=== PATIENT | female | born 1990 | race Caucasian/White ===

== ENCOUNTER 2023-08-02 07:54 | Outpatient (OUT) | payer OTHER, SELFPAY ==
--- NOTE | 2023-08-02 07:57 | US_ITS ---
The [address] [address] Patient Name: MARKO LATHAM MRN: [id number] date: 1990 Sex: F Assigned Patient Location: [place] Current Patient Location: US Accession/Order Number: [id number] Exam Date: 08/02/2023 08:00 Report Date: 08/02/2023 08:47 At the request of: CHI DOUGLASS Procedure: US right upper quadrant EXAMINATION: US right upper quadrant HISTORY: Cholelithiasis K80.80 , right upper quadrant pain COMPARISON: No relevant comparison available. TECHNIQUE: Transabdominal evaluation of the right upper quadrant. FINDINGS: LIVER: Normal size and echotexture. Color Doppler demonstrates patent hepatic veins. PORTAL VEIN: Duplex Doppler demonstrates normal hepatopetal flow pattern with flow velocity averaging 30 cm/s. GALLBLADDER: Contains numerous small stones. Wall thickness is upper limits of normal, 3 mm. Negative sonographic Paez sign. BILIARY: No abnormal dilation or stones. Common bile duct diameter is within normal limits. PANCREASE: No visible mass, abnormal atrophy, or duct dilation. KIDNEY: No hydronephrosis. No visible mass or stones. Size: 10.0 x 6.1 x 4.2 cm US/US right upper quadrant IMPRESSION: 1. Cholelithiasis and borderline gallbladder wall thickening suggesting chronic cholecystitis. No free fluid or positive Paez sign to suggest acute cholecystitis. Electronically authenticated by: ANTIONE HUGHES Date: 08/02/2023 08:47
== END 2023-08-02 07:55 | disposition home or self-care (01) ==
LOC: US 07:54
PROVIDERS: PCP Family Medicine; Visit Provider Family Medicine
DX: K80.80 Other cholelithiasis without obstruction (principal); K80.20 Calculus of gallbladder without cholecystitis without obstruction
CPT/HCPCS: 76705

== ENCOUNTER 2023-08-06 07:24 | Outpatient (OUT) | payer OTHER, SELFPAY ==
--- OUTSIDE RECORDS SUMMARY | 2023-08-06 07:28 | XMS_ITS | CCD ---
Author Name Unknown Address [facility] [address] [place] [address] Organization [facility] Care Team Providers Care Clean Room Assembler Name Role Phone [facility] Admitting Unavailable [facility] Attending Unavailable [facility] Primary Care Unavailable [facility] Consulting Unavailable DO Chely Mccall Attending Provider [phone] MD [facility] Primary Care Provider DO Bharati Whiting Attending Provider DO Chely Mccall Admit Provider [phone] CHELY MCCALL Attending Unavailable CHELY MCCALL Attending Unavailable CHELY MCCALL Attending Unavailable CHELY MCCALL Attending Unavailable CHELY MCCALL Referring Unavailable CHELY MCCALL Attending Unavailable CHELY MCCALL Attending Unavailable CHELY MCCALL Referring Unavailable MD Jonatan Marie Jr Emergency Provider Chely Mccall Admitting Unavailable Chely Mccall Attending Unavailable Chely cMcall Attending Unavailable Chi Clay Primary Care Unavailable Chely Mccall Admitting Unavailable Bharati Whiting Admitting Unavailable Bharati Whiting Attending Unavailable [facility] Primary Care Unavailable Jonatan Marie Jr Attending Unavailable [facility] Primary Care Unavailable Jonatan Marie Jr Admitting Unavailable Medications Current Medications Medication Drug Class(es) Dates Sig (Normalized) Sig (Original) acetaminophen 325 mg / oxyCODONE hydrochloride 5 mg oral tablet (1 source) Opioid Agonist Start: 06-27-2023 take 1 tablet by mouth three times daily Oxycodone-Acetami nophen (Percocet) 5-325 mg tablet Active 1 - 2 TAB PO Three times daily 14 10June 27, 2023 Start: 06-27-2023 take 1 tablet by aminata th three times daily Oxycodone-Acetaminophen (Percocet) 5-325 mg tablet Active 1 - 2 TAB PO Three times daily 14 10June 27, 2023 ibuprofen 600 mg oral tablet (7 sources) Nonsteroidal Anti-inflammatory Drug Start: 06-27-2023 take 600 mg by mouth every eight hours Ibuprofen Active 600 MG PO Q8H June 27, 2023 12:00am Start: 05-10-2023 End: 06-27-2023 take 600 mg by mouth every six hours Ibuprofen Discontinued 600 MG PO Q6H 60 May 10, 2023 12:00am June 27, 2023 3:14am Start: 06-18-2021 End: 05-07-2023 take 600 mg by mouth every six hours Ibuprofen Discontinued 600 MG PO Q6H June 18, 2021 12:00am May 07, 2023 10:41am ondansetron 4 mg disintegrating oral tablet (1 source) Serotonin-3 Receptor Antagonist Start: 06-27-2023 take 4 mg by mouth every eight hours Ondansetron Active 4 MG PO Q8H June 27, 2023 12:00am Completed/Discontinued Medications Medication Drug Class(es) Dates Sig (Normalized) Sig (Original) acetaminophen 500 mg oral tablet (6 sources) Start: 06-18-2021 End: 06-27-2023 take 1000 mg by mouth every six hours Acetaminophen Discontinued 1000 MG PO Q6H 60 May 10, 2023 12:00am June 27, 2023 3:14am docusate sodium 100 mg oral capsule (6 sources) Start: 05-10-2023 End: 06-27-2023 take 100 mg by mouth once daily at bedtime Docusate Sodium Discontinued 100 MG PO Daily at bedtime May 10, 2023 12:00am June 27, 2023 3:14am Start: 06-18-2021 End: 05-07-2023 take 1 capsule by mouth once daily at bedtime Docusate Sodium (Dok) 100 mg Capsule Discontinued 100 MG PO Daily at bedtime June 18, 2021 12:00am May 07, 2023 10:41am labetalol hydrochloride 200 mg oral tablet (7 sources) beta-Adrenergic Sara Start: 05-07-2023 End: 06-27-2023 take 200 mg by mouth twice daily Labetalol Discontinued 200 MG PO Twice daily May 07, 2023 12:00am June 27, 2023 3:14am Start: 06-15-2021 End: 06-18-2021 take 300 mg by mouth twice daily Labetalol Discontinued 300 MG PO Twice daily June 15, 2021 12:00am June 18, 2021 3:49pm Problems Problem Classification Problem Date Documented Date Episodic/Chronic Biliary tract disease (4 sources) Biliary calculus; Translations: [Calculus of gallbladder without cholecystitis without obstruction] Onset: 06-27-2023 06-27-2023 Episodic Nonspecific chest pain (1 source) Chest pain, unspecified; Translations: [Chest pain, unspecified] Onset: 06-27-2023 Episodic Other and delivery including normal (1 source) Encounter for supervision of normal , unspecified, third trimester; Translations: [Encounter for supervision of normal , unspecified, third trimester] Onset: 05-09-2023 Episodic Residual codes; unclassified (2 sources) History of uterine scar from previous surgery; Translations: [Other postprocedural status] 05-11-2023 Episodic Unclassified (1 source) Gestational [-induced] hypertension without significant proteinuria, third trimester; Translations: [Gestational [-induced] hypertension without significant proteinuria, third trimester] Onset: 05-07-2023 Unclassified (1 source) Encounter for screening for Streptococcus B; Translations: [Encounter for screening for Streptococcus B] Onset: 04-17-2023 Results Test Name Value Interpretation Reference Range Facility Activated partial thrombopla stin time (aPTT) in platelet poor plasma by coagulation aOrdered By: Jonatan Marie on 06-27-2023 aPTT Coag (PPP) [Time] 31.6 s 25.1-36.5 [facility] Comment on above: A hematocrit value g reater than 55% may lead to inaccurate results in coagulation testing. Patients having hematocrit values >55% require a special collection tube for coagulation studies. Please contact the laboratory at [phone] for redraw instructions. Alanine aminotransferase [En zymatic activity/volume] in Serum or PlasmaOrdered By: Jonatan Marie on 06-27-2023 ALT [Catalytic activity/Vol] 265 U/L 7-52 [facility] Albumin [Mass/volume] in Ser um or Plasma by Bromocresol green (BCG) dye binding methoOrdered By: Jonatan Marie on 06-27-2023 Albumin BCG dye [Mass/Vol] 4.1 g/dL 3.5-5.7 [facility] Alkaline phosphatase [Enzyma tic activity/volume] in Serum or PlasmaOrdered By: Jonatan Marie on 06-27-2023 ALP [Catalytic activity/Vol] 399 U/L 34-104 [facility] Aspartate aminotransferase [ Enzymatic activity/volume] in Serum or PlasmaOrdered By: Jonatan Marie on 06-27-2023 AST [Catalytic activity/Vol] 155 U/L 13-39 [facility] B-Type Natriuretic Peptideon 06-27-2023 Natriuretic peptide B (Bld) [Mass/Vol] 31.0 pg/mL Normal 5-100 [facility] Comment on above: Result Comment: PERF ORMED BY: [place] [id number] PATHOLOGIST QUIRK SANDER YORDAN DEVINE M.D. Performed By: #### C K, BNP, DDIMER, HS TROP, CBC, PT, PTT #### [address] Basophils Auto (Bld) [#/Vol] Ordered By: Jonatan Marie on 06-27-2023 Basophils (Bld) [#/Vol] 0.0 10*3/uL 0.0-0.2 [facility] Basophils/100 WBC Auto (Bld) Ordered By: Jonatan Marie on 06-27-2023 Basophils/100 WBC (Bld) 0.4 % . [facility] Bilirubin.total [Mass/volume ] in Serum or PlasmaOrdered By: Jonatan Marie on 06-27-2023 Bilirubin [Mass/Vol] 0.7 mg/dL 0.3-1.0 [facility] CT abdomen pelvis w conon CT abdomen pelvis w con [facility] [place] [address] CT Scan Report Signed Patient: Janine Latham MR#: [id number] : 1990 Acct:[id number] Age/Sex: 32 / F ADM Date: 06/27/23 Loc: ER Room: Type: [facility] ER Attending Dr: Copies to: Jonatan Marie Jr, MD Ordering Provider: Jonatan Marie Jr, MD Date of Service: 06/27/23 CT/CT abdomen pelvis w con: epigastric pain, abnl lft's CT ABDOMEN AND PELVIS WITH INTRAVENOUS CONTRAST: CLINICAL HISTORY: Chest pain, nausea this morning. COMPARISON: None TECHNIQUE: Spiral images were obtained through the abdomen and pelvis following the administration of intravenous contrast. This CT exam was performed using one or more following dose reduction techniques: Automated exposure control, adjustment of the mA and/or kV according to patient size, or use of iterative reconstruction technique. FINDINGS: Lung Bases: [Partially visualized left lower lobe atelectasis.] Organs:Cholelithiasis and sludge. Gallbladder appears contracted. No CBD dilatation. Subcentimeter hypodense lesion right lobe the liver, too small for accurate characterization. Mild splenomegaly. Portal vein pancreas and adrenal glands appear unremarkable. No enhancing renal mass or hydronephrosis. Abdominal aorta appears normal in caliber.[ GI: Stomach is grossly unremarkable. Small bowel appears nondilated. Appendix is normal. No acute colonic abnormality.[ Pelvis:[Urinary bladder is grossly unremarkable. No adnexal mass. Uterus is grossly unremarkable.] Peritoneum/Retroperitoneum :No free air, free fluid or lymphadenopathy.[ Abd wall/Bones:Abdominal wall demonstrates no acute findings. Osseous structures demonstrate degenerative change.[ CT/CT abdomen pelvis w con IMPRESSION: 1. No definite acute intra-abdominal process.. 2. Gallbladder is contracted with cholelithiasis. If acute cholecystitis is of clinical concern, further evaluation with HIDA scan is suggested. 3. Partially visualized left lower lobe atelectasis. Developing pneumonia cannot be excluded. 4. Splenomegaly. Impression dictated by: Nitin Malagon Jr., D.O.06/27/2023 8:30 AM Dictation Location: [place] [address] Transcribed By: [facility] 06/27/23 1797 Dictated By: Nitin Malagon Jr, DO 06/27/23 0826 Signed By: 06/27/23 0830 Normal [facility] Calcium [Mass/volume] in Ser um or PlasmaOrdered By: Jonatan Marie on 06-27-2023 Calcium [Mass/Vol] 9.1 mg/dL 8.6-10.3 [facility] Carbon dioxide, total [Moles /volume] in Serum or PlasmaOrdered By: Jonatan Marie on 06-27-2023 CO2 [Moles/Vol] 25.7 mmol/L 21.0-31.0 [facility] Chloride [Moles/volume] in S nasra or PlasmaOrdered By: Jonatan Marie on 06-27-2023 Chloride [Moles/Vol] 106 mmol/L 98-107 [facility] Complete Blood Count Auto Di ffon 06-27-2023 Basophils (Bld) [#/Vol] 0.0 10*3/uL Normal 0.0-0.2 [facility] Comment on above: Result Comment: PERF ORMED BY: [place] [address] PATHOLOGIST QUIRK SANDER YORDAN DEVINE M.D. Performed By: #### C K, BNP, DDIMER, HS TROP, CBC, PT, PTT #### [facility] [address] [place] [address] Basophils/100 WBC (Bld) 0.4 % Normal . [facility] Comment on above: Performed By: #### C K, BNP, DDIMER, HS TROP, CBC, PT, PTT #### [facility] [address] Eosinophils (Bld) [#/Vol] 0.1 10*3/uL Normal 0.0-0.45 [facility] Comment on above: Performed By: #### C K, BNP, DDIMER, HS TROP, CBC, PT, PTT #### [facility] [address] Eosinophils/100 WBC (Bld) 1.1 % Normal . [facility] Comment on above: Performed By: #### C K, BNP, DDIMER, HS TROP, CBC, PT, PTT #### [address] Erythrocyte distribution width (RBC) [Ratio] 14.7 % Normal 11.9-15.3 [facility] Comment on above: Performed By: #### C K, BNP, DDIMER, HS TROP, CBC, PT, PTT #### [address] Hematocrit (Bld) [Volume fraction] 36.0 % Normal 34.0-46.4 [facility] Comment on above: Performed By: #### C K, BNP, DDIMER, HS TROP, CBC, PT, PTT #### [address] Hemoglobin (Bld) [Mass/Vol] 11.9 g/dL Normal 11.8-15.4 [facility] Comment on above: Performed By: #### C K, BNP, DDIMER, HS TROP, CBC, PT, PTT #### [address] Lymphocytes (Bld) [#/Vol] 2.3 10*3/uL Normal 1.00-4.8 [facility] Comment on above: Performed By: #### C K, BNP, DDIMER, HS TROP, CBC, PT, PTT #### [address] Lymphocytes/100 WBC (Bld) 32.4 % Normal . [facility] Comment on above: Performed By: #### C K, BNP, DDIMER, HS TROP, CBC, PT, PTT #### [address] MCH (RBC) [Entitic mass] 28.5 pg Normal 24.7-34.3 [facility] Comment on above: Performed By: #### C K, BNP, DDIMER, HS TROP, CBC, PT, PTT #### [address] MCV (RBC) [Entitic vol] 86.3 fL Normal 80-100 [facility] Comment on above: Performed By: #### C K, BNP, DDIMER, HS TROP, CBC, PT, PTT #### [address] Mean Corpuscular HGB Conc 33.1 g/dL Normal 32.0-35.0 [facility] Comment on above: Performed By: #### C K, BNP, DDIMER, HS TROP, CBC, PT, PTT #### [place] [address] [place] Monocytes (Bld) [#/Vol] 0.5 10*3/uL Normal 0.0-0.8 [facility] Comment on above: Performed By: #### C K, BNP, DDIMER, HS TROP, CBC, PT, PTT #### [address] Monocytes/100 WBC (Bld) 19.49 % Normal 0.00-20.00 [facility] Comment on above: Performed By: #### C K, BNP, DDIMER, HS TROP, CBC, PT, PTT #### [address] Monocytes/100 WBC (Bld) 6.9 % Normal . [facility] Comment on above: Performed By: #### C K, BNP, DDIMER, HS TROP, CBC, PT, PTT #### [address] Neutrophils (Bld) [#/Vol] 4.2 10*3/uL Normal 1.8-7.7 [facility] Comment on above: Performed By: #### C K, BNP, DDIMER, HS TROP, CBC, PT, PTT #### [place] [address] [place] Neutrophils/100 WBC (Bld) 59.2 % Normal . [facility] Comment on above: Performed By: #### C K, BNP, DDIMER, HS TROP, CBC, PT, PTT #### [place] [address] [place] NRBC% 0.1 /100{WBC} Normal 0-0.5 [facility] Comment on above: Performed By: #### C K, BNP, DDIMER, HS TROP, CBC, PT, PTT #### [address] Platelet mean volume (Bld) [Entitic vol] 7.3 fL Normal 6.3-10.7 [facility] Comment on above: Performed By: #### C K, BNP, DDIMER, HS TROP, CBC, PT, PTT #### [address] Platelets (Bld) [#/Vol] 189 10*3/uL Normal 150-450 [facility] Comment on above: Performed By: #### C K, BNP, DDIMER, HS TROP, CBC, PT, PTT #### [address] RBC (Bld) [#/Vol] 4.17 10*6/uL Normal 3.60-5.00 [facility] Comment on above: Performed By: #### C K, BNP, DDIMER, HS TROP, CBC, PT, PTT #### [address] WBC (Bld) [#/Vol] 7.1 10*3/uL Normal 3.8-11.6 [facility] Comment on above: Performed By: #### C K, BNP, DDIMER, HS TROP, CBC, PT, PTT #### [address] Comprehensive Metabolic Pane emre 06-27-2023 Albumin [Mass/Vol] 4.1 g/dL Normal 3.5-5.7 [facility] Comment on above: Performed By: #### C K, BNP, DDIMER, HS TROP, CBC, PT, PTT #### [address] Albumin/Globulin [Mass ratio] 1.8 {ratio} Normal [facility] Comment on above: Performed By: #### C K, BNP, DDIMER, HS TROP, CBC, PT, PTT #### [address] [place] [address] [place] ALP [Catalytic activity/Vol] 399 U/L High 34-104 [facility] Comment on above: Performed By: #### C K, BNP, DDIMER, HS TROP, CBC, PT, PTT #### [address] ALT [Catalytic activity/Vol] 265 U/L High 7-52 [facility] Comment on above: Performed By: #### C K, BNP, DDIMER, HS TROP, CBC, PT, PTT #### [address] Anion gap [Moles/Vol] 9.7 mmol/L Normal 6.0-15.0 [facility] Comment on above: Performed By: #### C K, BNP, DDIMER, HS TROP, CBC, PT, PTT #### [address] AST [Catalytic activity/Vol] 155 U/L High 13-39 [facility] Comment on above: Performed By: #### C K, BNP, DDIMER, HS TROP, CBC, PT, PTT #### [facility] [address] [place] [address] Bilirubin [Mass/Vol] 0.7 mg/dL Normal 0.3-1.0 [facility] Comment on above: Performed By: #### C K, BNP, DDIMER, HS TROP, CBC, PT, PTT #### [address] Calcium [Mass/Vol] 9.1 mg/dL Normal 8.6-10.3 [facility] Comment on above: Performed By: #### C K, BNP, DDIMER, HS TROP, CBC, PT, PTT #### [address] Chloride [Moles/Vol] 106 mmol/L Normal 98-107 [facility] Comment on above: Performed By: #### C K, BNP, DDIMER, HS TROP, CBC, PT, PTT #### [address] [place] [address] [place] CO2 [Moles/Vol] 25.7 mmol/L Normal 21.0-31.0 [facility] Comment on above: Performed By: #### C K, BNP, DDIMER, HS TROP, CBC, PT, PTT #### [facility] [address] Creatinine [Mass/Vol] 0.79 mg/dL Normal 0.60-1.20 [facility] Comment on above: Performed By: #### C K, BNP, DDIMER, HS TROP, CBC, PT, PTT #### [facility] [address] Creatinine Clr Calc Pharmacy 114.[address] [facility] Comment on above: Performed By: #### C K, BNP, DDIMER, HS TROP, CBC, PT, PTT #### [address] GFR/1.73 sq M.predicted MDRD (S/P/Bld) [Vol rate/Area] mL/min/{1.73_m2} [facility] Comment on above: Performed By: #### C K, BNP, DDIMER, HS TROP, CBC, PT, PTT #### [address] Globulin (S) [Mass/Vol] 2.3 g/dL [facility] Comment on above: Performed By: #### C K, BNP, DDIMER, HS TROP, CBC, PT, PTT #### [address] Glucose [Mass/Vol] 97 mg/dL Normal 70-100 [facility] Comment on above: Result Comment: [place] Glucose Reference Range is dependent on time and content of last meal. Glucose of more than 200 mg/dL in a nonstressed, ambulatory subject supports the diagnosis of Diabetes Mellitus. ADA recommended reference range Performed By: #### C K, BNP, DDIMER, HS TROP, CBC, PT, PTT #### [address] Potassium [Moles/Vol] 3.4 mmol/L Low 3.5-5.1 [facility] Comment on above: Performed By: #### C K, BNP, DDIMER, HS TROP, CBC, PT, PTT #### [address] Protein [Mass/Vol] 6.4 g/dL Normal 6.4-8.9 [facility] Comment on above: Performed By: #### C K, BNP, DDIMER, HS TROP, CBC, PT, PTT #### [facility] [address] Sodium [Moles/Vol] 138 mmol/L Normal 136-145 [facility] Comment on above: Performed By: #### C K, BNP, DDIMER, HS TROP, CBC, PT, PTT #### [address] Urea nitrogen [Mass/Vol] 15 mg/dL Normal 7-25 [facility] Comment on above: Performed By: #### C K, BNP, DDIMER, HS TROP, CBC, PT, PTT #### [facility] [address] [place] [address] [place] Creatine Kinaseon 06-27-2023 CK [Catalytic activity/Vol] 41 U/L Normal [facility] Comment on above: Performed By: #### C K, BNP, DDIMER, HS TROP, CBC, PT, PTT #### [facility] [address] [place] [address] [place] Creatine kinase [Enzymatic a ctivity/volume] in Serum or PlasmaOrdered By: Jonatan Marie on 06-27-2023 CK [Catalytic activity/Vol] 41 U/L [facility] Creatinine [Mass/volume] in Serum or PlasmaOrdered By: Jonatan Marie on 06-27-2023 Creatinine [Mass/Vol] 0.79 mg/dL 0.60-1.20 [facility] D-Dimer High Sensitivityon 0 06-27-2023 D-Dimer High Sensitivity < 200 Normal 0-243 [facility] Comment on above: Result Comment: The reference range for D-dimer is <243 ng/mL D-dimer units. D-dimer results must be used in conjunction with a clinical pretest probability (PTP) assessment model for deep vein thrombosis (DVT) and pulmonary embolism (PE). Results <230 ng/mL d-dimer units can be used as a negative predictor in patients with low or moderate probability for DVT/PE. Results above the exclusion threshold of 230 ng/ml D-dimer units for DVT/PE may indicate the need for further diagnostic testing. D-Dimer can be increased in hospitalized patients due to co-morbid conditions. A hematocrit value greater than 55% may lead to inaccurate results in coagulation testing. Patients having hematocrit values >55% require a special collection tube for coagulation studies. Please contact the laboratory at [phone] for redraw instructions. PERFORMED BY: [place] [address] PATHOLOGIST QUIRK SANDER YORDAN DEVINE M.D. Performed By: #### C K, BNP, DDIMER, HS TROP, CBC, PT, PTT #### [place] [id number] [facility] ECG 12 lead ECGon 06-27-2023 ECG 12 lead ECG [facility] [place] [address] [place] [address] Electrocardiograph Report Signed Patient: Janine Latham MR#: [id number] : 1990 Acct:[id number] Age/Sex: 32 / F ADM Date: 06/27/23 Loc: ER Room: Type: [facility] ER Attending Dr: Ordering Provider: Jonatan Marie Jr, MD Date of Service: 06/27/23 ECG/ECG 12 lead ECG: Chest Pain Copies to: Test Reason : Blood Pressure : / mmHG Vent. Rate : 075 BPM Atrial Rate : 075 BPM P-R Int : 192 ms QRS Dur : 088 ms QT Int : 420 ms P-R-T Axes : 048 044 050 degrees QTc Int : 469 ms Normal sinus rhythm with sinus arrhythmia Low voltage QRS Septal infarct , age undetermined Abnormal ECG No previous ECGs available Confirmed by Shawanda Thompson ([id number]) on 06/28/2023 5:25:02 PM Referred By: Electronically Signed By:Shawanda Thompson REVISED DOCUMENT/07/19/2023/kh (corrected prov sig) Transcribed By: [facility] Signed By Shawanda Thompson MD 4 0006 Normal [facility] Eosinophils Auto (Bld) [#/Vo l]Ordered By: Jonatan Marie on 06-27-2023 Eosinophils (Bld) [#/Vol] 0.1 10*3/uL 0.0-0.45 [facility] Eosinophils/100 WBC Auto (Bl d)Ordered By: Jonatan Marie on 06-27-2023 Eosinophils/100 WBC (Bld) 1.1 % . [facility] Erythrocyte distribution wid th Auto (RBC) [Ratio]Ordered By: Jonatan Marie on 06-27-2023 Erythrocyte distribution width (RBC) [Ratio] 14.7 % 11.9-15.3 [facility] Fibrin D-dimer [Presence] in Platelet poor plasma by Latex agglutinationOrdered By: Jonatan Marie on 06-27-2023 Fibrin D-dimer LA Ql (PPP) < 200 ng/mL 0-243 [facility] Comment on above: The reference range for D-dimer is <243 ng/mL D-dimer units.D-dimer results must be used in conjunction with a clinicalpretest probability (PTP) assessment model for deep veinthrombosis (DVT) and pulmonary embolism (PE). Results <230ng/mL d-dimer units can be used as a negative predictor inpatients with low or moderate probability for DVT/PE.Results above the exclusion threshold of 230 ng/ml D-dimerunits for DVT/PE may indicate the need for furtherdiagnostic testing.D-Dimer can be increased in hospitalized patients due toco-morbid conditions.A hematocrit value greater than 55% may lead to inaccurate results in coagulation testing. Patients having hematocrit values >55% require a special collection tube for coagulation studies. Please contact the laboratory at [phone] for redraw instructions. Globulin Calc (S) [Mass/Vol] Ordered By: Jonatan Marie on 06-27-2023 Globulin (S) [Mass/Vol] 2.3 g/dL [facility] Glucose [Mass/volume] in Ser um or PlasmaOrdered By: Jonatan Marie on 06-27-2023 Glucose [Mass/Vol] 97 mg/dL 70-100 [facility] Comment on above: ADA recommended refe rence rangeRandom Glucose Reference Range is dependent on time and content of last meal. Glucose of more than 200 mg/dL in a nonstressed, ambulatory subject supports the diagnosis of Diabetes Mellitus. Hematocrit Auto (Bld) [Volum e fraction]Ordered By: Jonatan Marie on 06-27-2023 Hematocrit (Bld) [Volume fraction] 36.0 % 34.0-46.4 [facility] Hemoglobin [Mass/volume] in BloodOrdered By: Jonatan Marie on 06-27-2023 Hemoglobin (Bld) [Mass/Vol] 11.9 g/dL 11.8-15.4 [facility] INR in Platelet poor plasma by Coagulation assayOrdered By: Jonatan Marie on 06-27-2023 INR Coag (PPP) [Relative time] 0.8 {INR} [facility] Comment on above: INR Therapeutic Rang e A) Pre- and Peroperative OAT started two weeks before surgery. NOT HIP SURGERY: 1.5 - 2.5 HIP SURGERY: 2 - 3B) Primary and secondary prevention of venous THROMBOSIS: 2 - 3C) Active venous thrombosis, pulmonary embolismand prevention of recurrent venous thrombosis: 2 - 3D) Prevention of arterial thromboembolismincluding patients with mechanical heart valves: 3 - 4.5 Leukocytes [#/volume] correc jeff for nucleated erythrocytes in Blood by Automated counOrdered By: Jonatan Marie on 06-27-2023 WBC corrected for nucl RBC Auto (Bld) [#/Vol] 7.1 10*3/uL 3.8-11.6 [facility] Lipaseon 06-27-2023 Lipase [Catalytic activity/Vol] 15.0 U/L Normal 11.0-82.0 [facility] Comment on above: Result Comment: PERF ORMED BY: [place] [address] PATHOLOGIST QUIRK SANDER YORDAN DEVINE M.D. Performed By: #### C K, BNP, DDIMER, HS TROP, CBC, PT, PTT #### [facility] [address] Lipase [Enzymatic activity/v olume] in Serum or PlasmaOrdered By: Jonatan Marie on 06-27-2023 Lipase [Catalytic activity/Vol] 15.0 U/L 11.0-82.0 [facility] Lymphocytes Auto (Bld) [#/Vo l]Ordered By: Jonatan Marie on 06-27-2023 Lymphocytes (Bld) [#/Vol] 2.3 10*3/uL 1.00-4.8 [facility] Lymphocytes/100 WBC Auto (Bl d)Ordered By: Jonatan Marie on 06-27-2023 Lymphocytes/100 WBC (Bld) 32.4 % . [facility] MCH Auto (RBC) [Entitic mass ]Ordered By: Jonatan Marie on 06-27-2023 MCH (RBC) [Entitic mass] 28.5 pg 24.7-34.3 [facility] MCHC Auto (RBC) [Mass/Vol]Or dered By: Jonatan Marie on 06-27-2023 MCHC (RBC) [Mass/Vol] 33.1 g/dL 32.0-35.0 [facility] MCV Auto (RBC) [Entitic vol] Ordered By: Jonatan Marie on 06-27-2023 MCV (RBC) [Entitic vol] 86.3 fL 80-100 [facility] Monocyte distribution width [Entitic volume] in Blood by AutomatedOrdered By: Jonatan Marie on 06-27-2023 Monocyte distribution width Auto (Bld) [Entitic vol] 19.49 % 0.00-20.00 [facility] Monocytes Auto (Bld) [#/Vol] Ordered By: Jonatan Marie on 06-27-2023 Monocytes (Bld) [#/Vol] 0.5 10*3/uL 0.0-0.8 [facility] Monocytes/100 WBC Auto (Bld) Ordered By: Jonatan Marie on 06-27-2023 Monocytes/100 WBC (Bld) 6.9 % . [facility] Natriuretic peptide B [Mass/ Vol]Ordered By: Jonatan Marie on 06-27-2023 Natriuretic peptide B (Bld) [Mass/Vol] 31.0 pg/mL 5-100 [facility] Neutrophils Auto (Bld) [#/Vo l]Ordered By: Jonatan Marie on 06-27-2023 Neutrophils (Bld) [#/Vol] 4.2 10*3/uL 1.8-7.7 [facility] Neutrophils/100 WBC Auto (Bl d)Ordered By: Jonatan Marie on 06-27-2023 Neutrophils/100 WBC (Bld) 59.2 % . [facility] No Panel InformationOrdered By: Jonatan Marie on 06-27-2023 Estimated GFR (CKD-EPI) > 60.0 mL/Min [facility] Creatinine Clearance (Chem 114.10 [facility] Nucleated erythrocytes [Pres ence] in Blood by Automated countOrdered By: Jonatan Marie on 06-27-2023 Nucleated RBC Auto Ql (Bld) 0.1 /100{WBC} 0-0.5 [facility] Partial Thromboplastin Timeo n 06-27-2023 aPTT Coag (Bld) [Time] 31.6 s Normal 25.1-36.5 [facility] Comment on above: Result Comment: A he matocrit value greater than 55% may lead to inaccurate results in coagulation testing. Patients having hematocrit values >55% require a special collection tube for coagulation studies. Please contact the laboratory at [phone] for redraw instructions. Performed By: #### C K, BNP, DDIMER, HS TROP, CBC, PT, PTT #### [facility] [address] Platelet mean volume Auto (B ld) [Entitic vol]Ordered By: Jonatan Marie on 06-27-2023 Platelet mean volume (Bld) [Entitic vol] 7.3 fL 6.3-10.7 [facility] Platelets Auto (Bld) [#/Vol] Ordered By: Jonatan Marie on 06-27-2023 Platelets (Bld) [#/Vol] 189 10*3/uL 150-450 [facility] Potassium [Moles/volume] in Serum or PlasmaOrdered By: Jonatan Marie on 06-27-2023 Potassium [Moles/Vol] 3.4 mmol/L 3.5-5.1 [facility] Protein [Mass/volume] in Ser um or PlasmaOrdered By: Jonatan Marie on 06-27-2023 Protein [Mass/Vol] 6.4 g/dL 6.4-8.9 [facility] Prothrombin Time INRon 06-27 INR Coag (PPP) [Relative time] 0.8 {INR} Normal [facility] Comment on above: Result Comment: INR Therapeutic Range A) Pre- and Peroperative OAT started two weeks before surgery. NOT HIP SURGERY: 1.5 - 2.5 HIP SURGERY: 2 - 3 B) Primary and secondary prevention of venous THROMBOSIS: 2 - 3 C) Active venous thrombosis, pulmonary embolism and prevention of recurrent venous thrombosis: 2 - 3 D) Prevention of arterial thromboembolism including patients with mechanical heart valves: 3 - 4.5 Performed By: #### C K, BNP, DDIMER, HS TROP, CBC, PT, PTT #### [facility] [address] [place] [id number] [facility] PT Coag (PPP) [Time] 9.7 s Normal 9.0-12.9 [facility] Comment on above: Result Comment: A he matocrit value greater than 55% may lead to inaccurate results in coagulation testing. Patients having hematocrit values >55% require a special collection tube for coagulation studies. Please contact the laboratory at [phone] for redraw instructions. Performed By: #### C K, BNP, DDIMER, HS TROP, CBC, PT, PTT #### [facility] [address] [place] [id number] [facility] Prothrombin time (PT)Ordered By: Jonatan Marie on 06-27-2023 PT Coag (PPP) [Time] 9.7 s 9.0-12.9 [facility] Comment on above: A hematocrit value g reater than 55% may lead to inaccurate results in coagulation testing. Patients having hematocrit values >55% require a special collection tube for coagulation studies. Please contact the laboratory at [phone] for redraw instructions. RBC Auto (Bld) [#/Vol]Ordere d By: Jonatan Marie on 06-27-2023 RBC (Bld) [#/Vol] 4.17 10*6/uL 3.60-5.00 [facility] Serum or plasma albumin/glob ulin mass ratioOrdered By: Jonatan Marie on 06-27-2023 Albumin/Globulin [Mass ratio] 1.8 {ratio} [facility] Serum or plasma anion gap de terminationOrdered By: Jonatan Marie on 06-27-2023 Anion gap [Moles/Vol] 9.7 mmol/L 6.0-15.0 [facility] Sodium [Moles/volume] in Ser um or PlasmaOrdered By: Jonatan Marie on 06-27-2023 Sodium [Moles/Vol] 138 mmol/L 136-145 [facility] Troponin I High Sensitivityo n 06-27-2023 Troponin I High Sensitivity 3.6 pg/mL Normal 0.0-15.0 [facility] Comment on above: Result Comment: PERF ORMED BY: [facility] [address] [place] [address] PATHOLOGIST QUIRK SANDER YORDAN DEVINE M.D. Performed By: #### C K, BNP, DDIMER, HS TROP, CBC, PT, PTT #### [facility] [address] Troponin I.cardiac [Mass/vol ume] in Serum or Plasma by Detection limit <= 0.01 ng/Ordered By: Jonatan Marie on 06-27-2023 Troponin I.cardiac DL <= 0.01 ng/mL [Mass/Vol] 3.6 pg/mL 0.0-15.0 [facility] Urea nitrogen [Mass/volume] in Serum or PlasmaOrdered By: Jonatan Marie on 06-27-2023 Urea nitrogen [Mass/Vol] 15 mg/dL 7-25 [facility] WBC Auto (Bld) [#/Vol]Ordere d By: Jonatan Marie on 06-27-2023 WBC (Bld) [#/Vol] 7.1 10*3/uL 3.8-11.6 [facility] XR chest 2V*on 06-27-2023 XR chest 2V* [facility] [address] [place] [address] [place] [address] XRay Report Signed Patient: Janine Latham MR#: [id number] : 1990 Acct:[id number] Age/Sex: 32 / F ADM Date: 06/27/23 Loc: ER Room: Type: [facility] ER Attending Dr: Copies to: Jonatan Marie Jr, MD Ordering Provider: Jonatan Marie Jr, MD Date of Service: 06/27/23 XR/XR chest 2V*: Chest Pain Chest 2 views CLINICAL HISTORY: Chest pain this morning. Recent . COMPARISON: None FINDINGS: Heart normal in size. Lungs are clear. No free air. XR/XR chest 2V* IMPRESSION: NO ACUTE CARDIOPULMONARY ABNORMALITY. Impression dictated by: Nitin Malagon Jr., D.O.06/27/2023 8:14 AM Dictation Location: [facility]--12 Transcribed By: [facility] 06/27/23813 Dictated By: Nitin Malagon Jr, DO 06/27/23812 Signed By: 06/27/23813 Normal [facility] Basophils Auto (Bld) [#/Vol] Ordered By: CHELY MCCALL on 05-10-2023 Basophils (Bld) [#/Vol] 0.1 10*3/uL 0.0-0.2 [facility] Basophils/100 WBC Auto (Bld) Ordered By: CHELY MCCALL on 05-10-2023 Basophils/100 WBC (Bld) 0.7 % . [facility] Complete Blood Count Auto Di ffon 05-10-2023 Basophils (Bld) [#/Vol] 0.1 10*3/uL Normal 0.0-0.2 [facility] Comment on above: Result Comment: PERF ORMED BY: [place] [address] PATHOLOGIST QUIRK SANDER YORDAN DEVINE M.D. Performed By: #### C K, BNP, DDIMER, HS TROP, CBC, PT, PTT #### [facility] [address] Basophils/100 WBC (Bld) 0.7 % Normal . [facility] Comment on above: Performed By: #### C K, BNP, DDIMER, HS TROP, CBC, PT, PTT #### [facility] [address] [place] [address] [place] Eosinophils (Bld) [#/Vol] 0.0 10*3/uL Normal 0.0-0.45 [facility] Comment on above: Performed By: #### C K, BNP, DDIMER, HS TROP, CBC, PT, PTT #### [address] Eosinophils/100 WBC (Bld) 0.0 % Normal . [facility] Comment on above: Performed By: #### C K, BNP, DDIMER, HS TROP, CBC, PT, PTT #### [address] Erythrocyte distribution width (RBC) [Ratio] 14.9 % Normal 11.9-15.3 [facility] Comment on above: Performed By: #### C K, BNP, DDIMER, HS TROP, CBC, PT, PTT #### [address] Hematocrit (Bld) [Volume fraction] 30.6 % Low 34.0-46.4 [facility] Comment on above: Performed By: #### C K, BNP, DDIMER, HS TROP, CBC, PT, PTT #### [address] Hemoglobin (Bld) [Mass/Vol] 10.4 g/dL Low 11.8-15.4 [facility] Comment on above: Performed By: #### C K, BNP, DDIMER, HS TROP, CBC, PT, PTT #### [address] Lymphocytes (Bld) [#/Vol] 1.2 10*3/uL Normal 1.00-4.8 [facility] Comment on above: Performed By: #### C K, BNP, DDIMER, HS TROP, CBC, PT, PTT #### [address] Lymphocytes/100 WBC (Bld) 13.3 % Normal . [facility] Comment on above: Performed By: #### C K, BNP, DDIMER, HS TROP, CBC, PT, PTT #### [address] MCH (RBC) [Entitic mass] 29.9 pg Normal 24.7-34.3 [facility] Comment on above: Performed By: #### C K, BNP, DDIMER, HS TROP, CBC, PT, PTT #### [address] MCV (RBC) [Entitic vol] 88.4 fL Normal 80-100 [facility] Comment on above: Performed By: #### C K, BNP, DDIMER, HS TROP, CBC, PT, PTT #### [address] Mean Corpuscular HGB Conc 33.8 g/dL Normal 32.0-35.0 [facility] Comment on above: Performed By: #### C K, BNP, DDIMER, HS TROP, CBC, PT, PTT #### [address] Monocytes (Bld) [#/Vol] 0.5 10*3/uL Normal 0.0-0.8 [facility] Comment on above: Performed By: #### C K, BNP, DDIMER, HS TROP, CBC, PT, PTT #### [address] Monocytes/100 WBC (Bld) 5.9 % Normal . [facility] Comment on above: Performed By: #### C K, BNP, DDIMER, HS TROP, CBC, PT, PTT #### [address] Neutrophils (Bld) [#/Vol] 7.4 10*3/uL Normal 1.8-7.7 [facility] Comment on above: Performed By: #### C K, BNP, DDIMER, HS TROP, CBC, PT, PTT #### [address] Neutrophils/100 WBC (Bld) 80.1 % Normal . [facility] Comment on above: Performed By: #### C K, BNP, DDIMER, HS TROP, CBC, PT, PTT #### [address] NRBC% 0.1 /100{WBC} Normal 0-0.5 [facility] Comment on above: Performed By: #### C K, BNP, DDIMER, HS TROP, CBC, PT, PTT #### [address] Platelet mean volume (Bld) [Entitic vol] 8.7 fL Normal 6.3-10.7 [facility] Comment on above: Performed By: #### C K, BNP, DDIMER, HS TROP, CBC, PT, PTT #### [facility] [address] Platelets (Bld) [#/Vol] 155 10*3/uL Normal 150-450 [facility] Comment on above: Performed By: #### C K, BNP, DDIMER, HS TROP, CBC, PT, PTT #### [address] RBC (Bld) [#/Vol] 3.46 10*6/uL Low 3.60-5.00 [facility] Comment on above: Performed By: #### C K, BNP, DDIMER, HS TROP, CBC, PT, PTT #### [address] WBC (Bld) [#/Vol] 9.2 10*3/uL Normal 3.8-11.6 [facility] Comment on above: Performed By: #### C K, BNP, DDIMER, HS TROP, CBC, PT, PTT #### [address] Eosinophils Auto (Bld) [#/Vo l]Ordered By: CHELY MCCALL on 05-10-2023 Eosinophils (Bld) [#/Vol] 0.0 10*3/uL 0.0-0.45 [facility] Eosinophils/100 WBC Auto (Bl d)Ordered By: CHELY MCCALL on 05-10-2023 Eosinophils/100 WBC (Bld) 0.0 % . [facility] Erythrocyte distribution wid th Auto (RBC) [Ratio]Ordered By: CHELY MCCALL on 05-10-2023 Erythrocyte distribution width (RBC) [Ratio] 14.9 % 11.9-15.3 [facility] Hematocrit Auto (Bld) [Volum e fraction]Ordered By: CHELY MCCALL on 05-10-2023 Hematocrit (Bld) [Volume fraction] 30.6 % 34.0-46.4 [facility] Hemoglobin [Mass/volume] in BloodOrdered By: CHELY MCCALL on 05-10-2023 Hemoglobin (Bld) [Mass/Vol] 10.4 g/dL 11.8-15.4 [facility] Leukocytes [#/volume] correc jeff for nucleated erythrocytes in Blood by Automated counOrdered By: CHELY MCCALL on 05-10-2023 WBC corrected for nucl RBC Auto (Bld) [#/Vol] 9.2 10*3/uL 3.8-11.6 [facility] Lymphocytes Auto (Bld) [#/Vo l]Ordered By: CHELY MCCALL on 05-10-2023 Lymphocytes (Bld) [#/Vol] 1.2 10*3/uL 1.00-4.8 [facility] Lymphocytes/100 WBC Auto (Bl d)Ordered By: CHELY MCCALL on 05-10-2023 Lymphocytes/100 WBC (Bld) 13.3 % . [facility] MCH Auto (RBC) [Entitic mass ]Ordered By: CHELY MCCALL on 05-10-2023 MCH (RBC) [Entitic mass] 29.9 pg 24.7-34.3 [facility] MCHC Auto (RBC) [Mass/Vol]Or dered By: CHELY MCCALL on 05-10-2023 MCHC (RBC) [Mass/Vol] 33.8 g/dL 32.0-35.0 [facility] MCV Auto (RBC) [Entitic vol] Ordered By: CHELY MCCALL on 05-10-2023 MCV (RBC) [Entitic vol] 88.4 fL 80-100 [facility] Monocytes Auto (Bld) [#/Vol] Ordered By: CHELY MCCALL on 05-10-2023 Monocytes (Bld) [#/Vol] 0.5 10*3/uL 0.0-0.8 [facility] Monocytes/100 WBC Auto (Bld) Ordered By: CHELY MCCALL on 05-10-2023 Monocytes/100 WBC (Bld) 5.9 % . [facility] Neutrophils Auto (Bld) [#/Vo l]Ordered By: CHELY MCCALL on 05-10-2023 Neutrophils (Bld) [#/Vol] 7.4 10*3/uL 1.8-7.7 [facility] Neutrophils/100 WBC Auto (Bl d)Ordered By: CHELY MCCALL on 05-10-2023 Neutrophils/100 WBC (Bld) 80.1 % . [facility] Nucleated erythrocytes [Pres ence] in Blood by Automated countOrdered By: CHELY MCCALL on 05-10-2023 Nucleated RBC Auto Ql (Bld) 0.1 /100{WBC} 0-0.5 [facility] Platelet mean volume Auto (B ld) [Entitic vol]Ordered By: CHELY MCCALL on 05-10-2023 Platelet mean volume (Bld) [Entitic vol] 8.7 fL 6.3-10.7 [facility] Platelets Auto (Bld) [#/Vol] Ordered By: CHELY MCCALL on 05-10-2023 Platelets (Bld) [#/Vol] 155 10*3/uL 150-450 [facility] RBC Auto (Bld) [#/Vol]Ordere d By: CHELY MCCALL on 05-10-2023 RBC (Bld) [#/Vol] 3.46 10*6/uL 3.60-5.00 [facility] WBC Auto (Bld) [#/Vol]Ordere d By: CHELY MCCALL on 05-10-2023 WBC (Bld) [#/Vol] 9.2 10*3/uL 3.8-11.6 [facility] Amphetamine Screen Ql (U)Ord ered By: CHELY MCCALL on 05-09-2023 Amphetamines Ql (U) Negative Negative [facility] Automated erythrocytes count in urine sediment (number/area)Ordered By: CHELY MCCALL on 05-09-2023 RBC Auto (Urine sed) [#/Area] 0-1 [HPF] 0-4 [facility] Automated leukocytes count i n urine sediment (number/area)Ordered By: CHELY MCCALL on 05-09-2023 WBC Auto (Urine sed) [#/Area] 1-2 [HPF] 0-4 [facility] Automated urine color determ inationOrdered By: CHELY MCCALL on 05-09-2023 Color (U) Yellow Normal Yellow [facility] Comment on above: Order Comment: Name Collection Type:: Clean-Voided Midstream Performed By: #### C K, BNP, DDIMER, HS TROP, CBC, PT, PTT #### [facility] [address] Automated urine hyaline cast s count (number/volume)Ordered By: CHELY MCCALL on 05-09-2023 Hyaline casts Auto (U) [#/Vol] None seen [LPF] 0-1 [facility] Barbiturates [Presence] in U rine by Screen methodOrdered By: CHELY MCCALL on 05-09-2023 Barbiturates Screen Ql (U) Negative Negative [facility] Benzodiazepines Screen Ql (U )Ordered By: CHELY MCCALL on 05-09-2023 Benzodiazepines Ql (U) Negative Negative [facility] Benzoylecgonine [Presence] i n Urine by Screen methodOrdered By: CHELY MCCALL on 05-09-2023 Benzoylecgonine Screen Ql (U) Negative Negative [facility] Bilirubin Test strip Ql (U)O rdered By: CHELY MCCALL on 05-09-2023 Bilirubin Ql (U) Negative Negative [facility] Casts typing in urine sedime nt by light microscopyOrdered By: CHELY MCCALL on 05-09-2023 Casts LM Nom (Urine sed) None seen [LPF] None Seen [facility] Complete Blood Count Auto Di ffon 05-09-2023 Basophils (Bld) [#/Vol] 0.2 10*3/uL Normal 0.0-0.2 [facility] Comment on above: Result Comment: PERF ORMED BY: [place] [address] PATHOLOGIST QUIRK SANDER YORDAN DEVINE M.D. Performed By: #### C BC #### [address] Basophils/100 WBC (Bld) 2.3 % Normal . [facility] Comment on above: Performed By: #### C BC #### [address] Eosinophils (Bld) [#/Vol] 0.1 10*3/uL Normal 0.0-0.45 [facility] Comment on above: Performed By: #### C BC #### [address] Eosinophils/100 WBC (Bld) 1.0 % Normal . [facility] Comment on above: Performed By: #### C BC #### [address] Erythrocyte distribution width (RBC) [Ratio] 15.1 % Normal 11.9-15.3 [facility] Comment on above: Performed By: #### C BC #### [address] Hematocrit (Bld) [Volume fraction] 34.1 % Normal 34.0-46.4 [facility] Comment on above: Performed By: #### C BC #### [address] Hemoglobin (Bld) [Mass/Vol] 11.4 g/dL Low 11.8-15.4 [facility] Comment on above: Performed By: #### C BC #### [address] Lymphocytes (Bld) [#/Vol] 1.7 10*3/uL Normal 1.00-4.8 [facility] Comment on above: Performed By: #### C BC #### [place] [address] [place] Lymphocytes/100 WBC (Bld) 24.0 % Normal . [facility] Comment on above: Performed By: #### C BC #### [facility] [address] MCH (RBC) [Entitic mass] 29.2 pg Normal 24.7-34.3 [facility] Comment on above: Performed By: #### C BC #### [facility] [address] MCV (RBC) [Entitic vol] 87.2 fL Normal 80-100 [facility] Comment on above: Performed By: #### C BC #### [address] Mean Corpuscular HGB Conc 33.5 g/dL Normal 32.0-35.0 [facility] Comment on above: Performed By: #### C BC #### [address] Monocytes (Bld) [#/Vol] 0.3 10*3/uL Normal 0.0-0.8 [facility] Comment on above: Performed By: #### C BC #### [address] Monocytes/100 WBC (Bld) 3.9 % Normal . [facility] Comment on above: Performed By: #### C BC #### [address] Neutrophils (Bld) [#/Vol] 4.7 10*3/uL Normal 1.8-7.7 [facility] Comment on above: Performed By: #### C BC #### [address] Neutrophils/100 WBC (Bld) 68.8 % Normal . [facility] Comment on above: Performed By: #### C BC #### [address] NRBC% 0.1 /100{WBC} Normal 0-0.5 [facility] Comment on above: Performed By: #### C BC #### [facility] [address] Platelet mean volume (Bld) [Entitic vol] 9.0 fL Normal 6.3-10.7 [facility] Comment on above: Performed By: #### C BC #### [facility] [address] Platelets (Bld) [#/Vol] 152 10*3/uL Normal 150-450 [facility] Comment on above: Performed By: #### C BC #### [facility] [address] RBC (Bld) [#/Vol] 3.91 10*6/uL Normal 3.60-5.00 [facility] Comment on above: Performed By: #### C BC #### [address] WBC (Bld) [#/Vol] 6.9 10*3/uL Normal 3.8-11.6 [facility] Comment on above: Performed By: #### C BC #### [address] Dipstick and Microscopicon 1 07-10-2022 Appearance (U) Cloudy Critically abnormal Clear [facility] Comment on above: Order Comment: Name Collection Type:: Clean-Voided Midstream Performed By: #### C K, BNP, DDIMER, HS TROP, CBC, PT, PTT #### [place] [address] [place] Bacteria,Urine None Seen Normal None Seen [facility] Comment on above: Order Comment: Name Collection Type:: Clean-Voided Midstream Performed By: #### C K, BNP, DDIMER, HS TROP, CBC, PT, PTT #### [place] [address] [place] Bilirubin,Urine Negative Normal Negative [facility] Comment on above: Order Comment: Name Collection Type:: Clean-Voided Midstream Performed By: #### C K, BNP, DDIMER, HS TROP, CBC, PT, PTT #### [address] [place] [address] [place] Glucose Ql (U) Normal Normal Normal [facility] Comment on above: Order Comment: Name Collection Type:: Clean-Voided Midstream Performed By: #### C K, BNP, DDIMER, HS TROP, CBC, PT, PTT #### [facility] [address] Hyaline Casts,Urine None Seen Normal 0-1 [facility] Comment on above: Order Comment: Name Collection Type:: Clean-Voided Midstream Performed By: #### C K, BNP, DDIMER, HS TROP, CBC, PT, PTT #### [facility] [address] [place] [address] Ketones Ql (U) 3+ High Negative [facility] Comment on above: Order Comment: Name Collection Type:: Clean-Voided Midstream Performed By: #### C K, BNP, DDIMER, HS TROP, CBC, PT, PTT #### [facility] [address] [place] [address] Leukocyte esterase Test strip Ql (U) Negative Normal Negative [facility] Comment on above: Order Comment: Name Collection Type:: Clean-Voided Midstream Performed By: #### C K, BNP, DDIMER, HS TROP, CBC, PT, PTT #### [address] Nitrite,Urine Negative Normal Negative [facility] Comment on above: Order Comment: Name Collection Type:: Clean-Voided Midstream Performed By: #### C K, BNP, DDIMER, HS TROP, CBC, PT, PTT #### [address] Occult Blood,Urine Negative Normal Negative [facility] Comment on above: Order Comment: Name Collection Type:: Clean-Voided Midstream Result Comment: PERF ORMED BY: [place] [address] PATHOLOGIST QUIRK SANDER YORDAN DEVINE M.D. Performed By: #### C K, BNP, DDIMER, HS TROP, CBC, PT, PTT #### [address] Other Casts,Urine None Seen Normal None Seen [facility] Comment on above: Order Comment: Name Collection Type:: Clean-Voided Midstream Result Comment: PERF ORMED BY: [place] [address] PATHOLOGIST QUIRK SANDER YORDAN DEVINE M.D. Performed By: #### C K, BNP, DDIMER, HS TROP, CBC, PT, PTT #### [address] RBC LM.HPF (Urine sed) [#/Area] 0 /[HPF] Normal 0-4 [facility] Comment on above: Order Comment: Name Collection Type:: Clean-Voided Midstream Performed By: #### C K, BNP, DDIMER, HS TROP, CBC, PT, PTT #### [address] Specificy [place],Urine 1.022 Normal 1.001-1.030 [facility] Comment on above: Order Comment: Name Collection Type:: Clean-Voided Midstream Performed By: #### C K, BNP, DDIMER, HS TROP, CBC, PT, PTT #### [address] Squamous Epithelial Cell,Urine 10-19 High 0-2 [facility] Comment on above: Order Comment: Name Collection Type:: Clean-Voided Midstream Performed By: #### C K, BNP, DDIMER, HS TROP, CBC, PT, PTT #### [address] Urobilinogen,Urine Normal Normal Normal [facility] Comment on above: Order Comment: Name Collection Type:: Clean-Voided Midstream Performed By: #### C K, BNP, DDIMER, HS TROP, CBC, PT, PTT #### [address] WBC,Urine 1-2 Normal 0-4 [facility] Comment on above: Order Comment: Name Collection Type:: Clean-Voided Midstream Performed By: #### C K, BNP, DDIMER, HS TROP, CBC, PT, PTT #### [facility] [address] Ketones Auto test strip (U) [Mass/Vol]Ordered By: CHELY MCCALL on 05-09-2023 Ketones (U) [Mass/Vol] 3+ Negative [facility] Emre 05-09-2023 L ------ Specimen: [id number] Received: 05/10/23 Status: MATEO Venegas Num: [id number] Spec Type: Surgical Subm Dr: CHELY MCCALL DO Tissues: A Placenta - 3rd Trimester (Greater than 28 weeks) (PLACENTA AND CORD) Procedures: LAWRENCE/Juani, Darnell/Tomas L5 Age/ Patient Sex Location Account Attending Physician Janine Latham 32/F 3S [id number] CHELY MCCALL DO SPEC NUM: [id number] RECD: 05/10/23 STATUS: MATEO VENEGAS NUM: [id number] KATHY: 05/09/23 [facility] DR: CHELY MCCALL DO ENTERED: 05/10/[address] [facility] [address]: LEATHA TYPE: Surgical DEPT: S ORDERED: HE/3, Gross/Micro L5 ORDERED: HE/3, Gross/Micro L5 Pathological Diagnosis Placenta, With: Umbilical Cord: Three Vessel Cord, Unremarkable. Membranes: Unremarkable. Placenta: Mature Chorionic Villi, Consistent With Third Trimester Placenta. Focal hemorrhagic necrosis is Identified. Clinical Information 38-week IUP, scheduled repeat C/B, PIH, breech presentation, viable female Gross Description Received in formalin labeled with the patient's name, date of and placenta and cord is a is a 21.5 x 16.5 x 2.0 cm placenta with an attached umbilical cord and attached membranes . The hutson-chapman, semitranslucent membranes insert marginally over the disc. The 24.2 x 1.0 cm umbilical cord inserts eccentrically 4.2 cm from the closest disc margin and contains 3 vessels on cut section. The trimmed weight is 556 g. The surface is bluegray with focal, marginal subchorionic hemorrhage adjacent to focal stripping of the membranes from the surface. The area of hemorrhage measures up to 3.5 cm and replaces less than 5% of the surface.. The maternal surface is hutson-chapman and appears intact. The cut surface is spongy, red without discrete lesion. Private Client Advisor sections are submitted in 2 cassettes as follows: A1 - cord and central disc A2 - membranes and marginal disc Specimen: [id number] Received: 05/10/23 Status: MATEO Venegas Num: [id number] Spec Type: Surgical Subm Dr: CHELY MCCALL DO Tissues: A Placenta - 3rd Trimester (Greater than 28 weeks) (PLACENTA AND CORD) Procedures: HE/3, Gross/Micro L5 Patient: Janine Latham [id number] (Continued) Specimen: [id number] Received: 05/10/23 (Continued) Signed (signature on file) Vanessa Vasquez MD 05/14/231955 Specimen: [id number] Received: 05/10/23 Status: MATEO Venegas Num: [id number] Spec Type: Surgical Subm Dr: CHELY MCCALL DO Tissues: A Placenta - 3rd Trimester (Greater than 28 weeks) (PLACENTA AND CORD) Procedures: HE/3, Gross/Micro L5 Patient: Janine Latham Dolores [id number] (Continued) Specimen: [id number] Received: 05/10/23 (Continued) Microscopic Description Two H E slides reviewed. The microscopic examination confirms the diagnosis. CPT Codes 08963 Specimen: [id number] Received: 05/10/23 Status: MATEO Venegas Num: [id number] Spec Type: Surgical Subm Dr: CHELY MCCALL DO Tissues: A Placenta - 3rd Trimester (Greater than 28 weeks) (PLACENTA AND CORD) Procedures: HE/3, Gross/Micro L5 Patient: Janine Latham Dolores [id number] (Continued) Signed (signature on file) Vanessa Vasquez MD 05/14/231955 Normal [facility] Nitrite Test strip Ql (U)Ord ered By: CHELY MCCALL on 05-09-2023 Nitrite Ql (U) Negative Negative [facility] OB Urine Drug Screen (NO THC )on 05-09-2023 Amphetamine Screen,Urine Negative Normal Negative [facility] Comment on above: Performed By: #### R NM W RFX #### [facility] , #### OBUDS #### [facility] [address] [place] [address] [place] Barbiturate Screen,Urine Negative Normal Negative [facility] Comment on above: Performed By: #### R NM W RFX #### [facility] , #### OBUDS #### [facility] [address] [place] [address] [place] Benzodiazepines Screen,Urine Negative Normal Negative [facility] Comment on above: Performed By: #### R NM W RFX #### [facility] , #### OBUDS #### [facility] [address] [place] [address] Cocaine Screen,Urine Negative Normal Negative [facility] Comment on above: Performed By: #### R NM W RFX #### [facility] , #### OBUDS #### [facility] [address] [place] [address] [place] Opiate Screen,Urine Negative Normal Negative [facility] Comment on above: Performed By: #### R NM W RFX #### [facility] , #### OBUDS #### [address] Phencyclidine Screen, Urine Negative Normal Negative [facility] Comment on above: Result Comment: Thes e are unconfirmed results and should not be used for legal purposes. Drug Cut-Off Concentration: AMPH 1000 ng/mL TOMMY 200 ng/mL BROOKLYNN 200 ng/mL COCM 300 ng/mL OP 300 ng/mL PCP 25 ng/mL PERFORMED BY: [place] [address] PATHOLOGIST QUIRK SANDER YORDAN DEVINE M.D. Performed By: #### R NM W RFX #### [facility] , #### OBUDS #### [facility] [address] [place] [address] Opiates [Presence] in Urine by Screen methodOrdered By: CHELY MCCALL on 05-09-2023 Opiates Screen Ql (U) Negative Negative [facility] Phencyclidine Screen Ql (U)O rdered By: CHELY MCCALL on 05-09-2023 Phencyclidine Ql (U) Negative Negative [facility] Comment on above: These are unconfirme d results and should not be used for legal purposes. Drug Cut-Off Concentration: AMPH 1000 ng/mL TOMMY 200 ng/mL BROOKLYNN 200 ng/mL COCM 300 ng/mL OP 300 ng/mL PCP 25 ng/mL RPR w/rfx to Quant TP Abson 12-13-2023 RPR, Rfx Quant RPR Non-Reactive Normal Non Reactive [facility] Comment on above: Result Comment: Perf ormed at: CB - [facility] [address] [id number] Green Building Engineer: Simón Silver PhD, Phone: [phone] PERFORMED BY: [place] [address] PATHOLOGIST QUIRK SANDER YORDAN DEVINE M.D. Performed By: #### C K, BNP, DDIMER, HS TROP, CBC, PT, PTT #### [facility] [address] [place] [address] Reagin Ab [Presence] in Seru m by RPROrdered By: CHELY MCCALL on 05-09-2023 Reagin Ab RPR Ql (S) Non-Reactive Non Reactive [facility] Comment on above: Performed at: CB - [facility] [address] [id number] Director: Simón Silver PhD, Phone: [phone] Specific gravity Auto test s trip (U) [Rel density]Ordered By: CHELY MCCALL on 05-09-2023 Specific gravity (U) [Rel density] 1.022 1.001-1.030 [facility] Squamous epithelial cells de tection in urine sediment by light microscopyOrdered By: CHELY MCCALL on 05-09-2023 Epithelial cells.squamous LM Ql (Urine sed) 10-19 [HPF] 0-2 [facility] Urine bacteria detection by automated methodOrdered By: CHELY MCCALL on 05-09-2023 Bacteria Auto Ql (U) None seen None Seen [facility] Urine clarity by refractomet ry automatedOrdered By: CHELY MCCALL on 05-09-2023 Clarity Refractometry automated (U) Cloudy Clear [facility] Urine glucose measurement by automated test strip (mass/volume)Ordered By: CHELY MCCALL on 05-09-2023 Glucose Auto test strip (U) [Mass/Vol] Normal mg/dL Normal [facility] Urine hemoglobin detection b y automated test stripOrdered By: CHELY MCCALL on 05-09-2023 Hemoglobin Auto test strip Ql (U) Negative Negative [facility] Urine leukocyte esterase det ection by automated test stripOrdered By: CHELY MCCALL on 05-09-2023 Leukocyte esterase Auto test strip Ql (U) Negative Negative [facility] Urine pH measurement by auto mated test stripOrdered By: CHELY MCCALL on 05-09-2023 pH (U) 6.5 [pH] Normal 5.0-9.0 [facility] Comment on above: Order Comment: Name Collection Type:: Clean-Voided Midstream Performed By: #### C K, BNP, DDIMER, HS TROP, CBC, PT, PTT #### [facility] [address] Urine protein measurement by automated test strip (mass/volume)Ordered By: CHELY MCCALL on 05-09-2023 Protein (U) [Mass/Vol] 100 mg/dL High Negative [facility] Comment on above: Order Comment: Name Collection Type:: Clean-Voided Midstream Performed By: #### C K, BNP, DDIMER, HS TROP, CBC, PT, PTT #### [facility] [address] Urobilinogen Auto test strip (U) [Mass/Vol]Ordered By: CHELY MCCALL on 05-09-2023 Urobilinogen (U) [Mass/Vol] Normal mg/dL Normal [facility] Alanine aminotransferase [En zymatic activity/volume] in Serum or PlasmaOrdered By: Bharati Whiting on 05-07-2023 ALT [Catalytic activity/Vol] 9 U/L 7-52 [facility] Albumin [Mass/volume] in Ser um or Plasma by Bromocresol green (BCG) dye binding methoOrdered By: Bharati Whiting on 05-07-2023 Albumin BCG dye [Mass/Vol] 3.4 g/dL 3.5-5.7 [facility] Alkaline phosphatase [Enzyma tic activity/volume] in Serum or PlasmaOrdered By: Bharati Whiting on 05-07-2023 ALP [Catalytic activity/Vol] 184 U/L 34-104 [facility] Amphetamine Screen Ql (U)Ord ered By: Bharati Whiting on 05-07-2023 Amphetamines Ql (U) Negative Negative [facility] Aspartate aminotransferase [ Enzymatic activity/volume] in Serum or PlasmaOrdered By: Bharati Whiting on 05-07-2023 AST [Catalytic activity/Vol] 14 U/L 13-39 [facility] Automated erythrocytes count in urine sediment (number/area)Ordered By: Bharati Whiting on 05-07-2023 RBC Auto (Urine sed) [#/Area] 0-1 [HPF] 0-4 [facility] Automated leukocytes count i n urine sediment (number/area)Ordered By: Bharati Whiting on 05-07-2023 WBC Auto (Urine sed) [#/Area] 0-1 [HPF] 0-4 [facility] Barbiturates [Presence] in U rine by Screen methodOrdered By: Bharati Whiting on 05-07-2023 Barbiturates Screen Ql (U) Negative Negative [facility] Basophils Auto (Bld) [#/Vol] Ordered By: Bharati Whiting on 05-07-2023 Basophils (Bld) [#/Vol] 0.1 10*3/uL 0.0-0.2 [facility] Basophils/100 WBC Auto (Bld) Ordered By: Bharati Whiting on 05-07-2023 Basophils/100 WBC (Bld) 0.7 % . [facility] Benzodiazepines Screen Ql (U )Ordered By: Bharati Whiting on 05-07-2023 Benzodiazepines Ql (U) Negative Negative [facility] Benzoylecgonine [Presence] i n Urine by Screen methodOrdered By: Bharati Whiting on 05-07-2023 Benzoylecgonine Screen Ql (U) Negative Negative [facility] Bilirubin Test strip Ql (U)O rdered By: Bharati Whiting on 05-07-2023 Bilirubin Ql (U) Negative Negative [facility] Bilirubin.total [Mass/volume ] in Serum or PlasmaOrdered By: Bharati Whiting on 05-07-2023 Bilirubin [Mass/Vol] 0.4 mg/dL 0.3-1.0 [facility] Calcium [Mass/volume] in Ser um or PlasmaOrdered By: Bharati Whiting on 05-07-2023 Calcium [Mass/Vol] 9.0 mg/dL 8.6-10.3 [facility] Carbon dioxide, total [Moles /volume] in Serum or PlasmaOrdered By: Bharati Whiting on 05-07-2023 CO2 [Moles/Vol] 20.6 mmol/L 21.0-31.0 [facility] Chloride [Moles/volume] in S nasra or PlasmaOrdered By: Bharati Whiting on 05-07-2023 Chloride [Moles/Vol] 107 mmol/L 98-107 [facility] Color Auto (U)Ordered By: Urbano alexnishant Whiting on 05-07-2023 Color (U) Yellow Yellow [facility] Complete Blood Count Auto Di ffon 05-07-2023 Basophils (Bld) [#/Vol] 0.1 10*3/uL Normal 0.0-0.2 [facility] Comment on above: Result Comment: PERF ORMED BY: [place] [address] PATHOLOGIST QUIRK SANDER YORDAN DEVINE M.D. Performed By: #### C K, BNP, DDIMER, HS TROP, CBC, PT, PTT #### [facility] [address] Basophils/100 WBC (Bld) 0.7 % Normal . [facility] Comment on above: Performed By: #### C K, BNP, DDIMER, HS TROP, CBC, PT, PTT #### [facility] [address] [place] [address] [place] Eosinophils (Bld) [#/Vol] 0.0 10*3/uL Normal 0.0-0.45 [facility] Comment on above: Performed By: #### C K, BNP, DDIMER, HS TROP, CBC, PT, PTT #### [facility] [address] [place] [address] [place] Eosinophils/100 WBC (Bld) 0.3 % Normal . [facility] Comment on above: Performed By: #### C K, BNP, DDIMER, HS TROP, CBC, PT, PTT #### [address] Erythrocyte distribution width (RBC) [Ratio] 14.7 % Normal 11.9-15.3 [facility] Comment on above: Performed By: #### C K, BNP, DDIMER, HS TROP, CBC, PT, PTT #### [address] Hematocrit (Bld) [Volume fraction] 34.8 % Normal 34.0-46.4 [facility] Comment on above: Performed By: #### C K, BNP, DDIMER, HS TROP, CBC, PT, PTT #### [address] Hemoglobin (Bld) [Mass/Vol] 11.8 g/dL Normal 11.8-15.4 [facility] Comment on above: Performed By: #### C K, BNP, DDIMER, HS TROP, CBC, PT, PTT #### [address] Lymphocytes (Bld) [#/Vol] 1.7 10*3/uL Normal 1.00-4.8 [facility] Comment on above: Performed By: #### C K, BNP, DDIMER, HS TROP, CBC, PT, PTT #### [address] Lymphocytes/100 WBC (Bld) 22.7 % Normal . [facility] Comment on above: Performed By: #### C K, BNP, DDIMER, HS TROP, CBC, PT, PTT #### [address] MCH (RBC) [Entitic mass] 29.3 pg Normal 24.7-34.3 [facility] Comment on above: Performed By: #### C K, BNP, DDIMER, HS TROP, CBC, PT, PTT #### [address] MCV (RBC) [Entitic vol] 86.4 fL Normal 80-100 [facility] Comment on above: Performed By: #### C K, BNP, DDIMER, HS TROP, CBC, PT, PTT #### [address] Mean Corpuscular HGB Conc 33.9 g/dL Normal 32.0-35.0 [facility] Comment on above: Performed By: #### C K, BNP, DDIMER, HS TROP, CBC, PT, PTT #### [address] Monocytes (Bld) [#/Vol] 0.2 10*3/uL Normal 0.0-0.8 [facility] Comment on above: Performed By: #### C K, BNP, DDIMER, HS TROP, CBC, PT, PTT #### [address] Monocytes/100 WBC (Bld) 3.2 % Normal . [facility] Comment on above: Performed By: #### C K, BNP, DDIMER, HS TROP, CBC, PT, PTT #### [address] Neutrophils (Bld) [#/Vol] 5.6 10*3/uL Normal 1.8-7.7 [facility] Comment on above: Performed By: #### C K, BNP, DDIMER, HS TROP, CBC, PT, PTT #### [address] Neutrophils/100 WBC (Bld) 73.1 % Normal . [facility] Comment on above: Performed By: #### C K, BNP, DDIMER, HS TROP, CBC, PT, PTT #### [address] NRBC% 0.1 /100{WBC} Normal 0-0.5 [facility] Comment on above: Performed By: #### C K, BNP, DDIMER, HS TROP, CBC, PT, PTT #### [place] [address] [place] Platelet mean volume (Bld) [Entitic vol] 9.2 fL Normal 6.3-10.7 [facility] Comment on above: Performed By: #### C K, BNP, DDIMER, HS TROP, CBC, PT, PTT #### [facility] [address] Platelets (Bld) [#/Vol] 160 10*3/uL Normal 150-450 [facility] Comment on above: Performed By: #### C K, BNP, DDIMER, HS TROP, CBC, PT, PTT #### [facility] [address] RBC (Bld) [#/Vol] 4.03 10*6/uL Normal 3.60-5.00 [facility] Comment on above: Performed By: #### C K, BNP, DDIMER, HS TROP, CBC, PT, PTT #### [address] WBC (Bld) [#/Vol] 7.6 10*3/uL Normal 3.8-11.6 [facility] Comment on above: Performed By: #### C K, BNP, DDIMER, HS TROP, CBC, PT, PTT #### [facility] [address] Comprehensive Metabolic Pane emre 05-07-2023 Albumin [Mass/Vol] 3.4 g/dL Low 3.5-5.7 [facility] Comment on above: Performed By: #### C K, BNP, DDIMER, HS TROP, CBC, PT, PTT #### [facility] [address] Albumin/Globulin [Mass ratio] 1.0 {ratio} Normal [facility] Comment on above: Performed By: #### C K, BNP, DDIMER, HS TROP, CBC, PT, PTT #### [facility] [address] ALP [Catalytic activity/Vol] 184 U/L High 34-104 [facility] Comment on above: Performed By: #### C K, BNP, DDIMER, HS TROP, CBC, PT, PTT #### [facility] [address] ALT [Catalytic activity/Vol] 9 U/L Normal 7-52 [facility] Comment on above: Performed By: #### C K, BNP, DDIMER, HS TROP, CBC, PT, PTT #### [facility] [address] Anion gap [Moles/Vol] 13.1 mmol/L Normal 6.0-15.0 [facility] Comment on above: Performed By: #### C K, BNP, DDIMER, HS TROP, CBC, PT, PTT #### [address] AST [Catalytic activity/Vol] 14 U/L Normal 13-39 [facility] Comment on above: Performed By: #### C K, BNP, DDIMER, HS TROP, CBC, PT, PTT #### [address] Bilirubin [Mass/Vol] 0.4 mg/dL Normal 0.3-1.0 [facility] Comment on above: Performed By: #### C K, BNP, DDIMER, HS TROP, CBC, PT, PTT #### [address] Calcium [Mass/Vol] 9.0 mg/dL Normal 8.6-10.3 [facility] Comment on above: Performed By: #### C K, BNP, DDIMER, HS TROP, CBC, PT, PTT #### [address] Chloride [Moles/Vol] 107 mmol/L Normal 98-107 [facility] Comment on above: Performed By: #### C K, BNP, DDIMER, HS TROP, CBC, PT, PTT #### [address] CO2 [Moles/Vol] 20.6 mmol/L Low 21.0-31.0 [facility] Comment on above: Performed By: #### C K, BNP, DDIMER, HS TROP, CBC, PT, PTT #### [facility] [address] Creatinine [Mass/Vol] 0.51 mg/dL Low 0.60-1.20 [facility] Comment on above: Performed By: #### C K, BNP, DDIMER, HS TROP, CBC, PT, PTT #### [facility] [address] Creatinine Clr Calc Pharmacy 187.43 [facility] Comment on above: Performed By: #### C K, BNP, DDIMER, HS TROP, CBC, PT, PTT #### [address] GFR/1.73 sq M.predicted MDRD (S/P/Bld) [Vol rate/Area] mL/min/{1.73_m2} [facility] Comment on above: Performed By: #### C K, BNP, DDIMER, HS TROP, CBC, PT, PTT #### [address] Globulin (S) [Mass/Vol] 3.3 g/dL [facility] Comment on above: Performed By: #### C K, BNP, DDIMER, HS TROP, CBC, PT, PTT #### [address] Glucose [Mass/Vol] 77 mg/dL Normal 70-100 [facility] Comment on above: Result Comment: [place] Glucose Reference Range is dependent on time and content of last meal. Glucose of more than 200 mg/dL in a nonstressed, ambulatory subject supports the diagnosis of Diabetes Mellitus. ADA recommended reference range Performed By: #### C K, BNP, DDIMER, HS TROP, CBC, PT, PTT #### [address] Potassium [Moles/Vol] 3.7 mmol/L Normal 3.5-5.1 [facility] Comment on above: Performed By: #### C K, BNP, DDIMER, HS TROP, CBC, PT, PTT #### [address] Protein [Mass/Vol] 6.7 g/dL Normal 6.4-8.9 [facility] Comment on above: Performed By: #### C K, BNP, DDIMER, HS TROP, CBC, PT, PTT #### [address] Sodium [Moles/Vol] 137 mmol/L Normal 136-145 [facility] Comment on above: Performed By: #### C K, BNP, DDIMER, HS TROP, CBC, PT, PTT #### [address] Urea nitrogen [Mass/Vol] 7 mg/dL Normal 7-25 [facility] Comment on above: Performed By: #### C K, BNP, DDIMER, HS TROP, CBC, PT, PTT #### [address] Creatinine [Mass/volume] in Serum or PlasmaOrdered By: Bharati Whiting on 05-07-2023 Creatinine [Mass/Vol] 0.51 mg/dL 0.60-1.20 [facility] Dipstick and Microscopicon 1 07-08-2022 Appearance (U) Clear Normal Clear [facility] Comment on above: Order Comment: Name Collection Type:: Voided Performed By: #### C K, BNP, DDIMER, HS TROP, CBC, PT, PTT #### [address] Bacteria,Urine None Seen Normal None Seen [facility] Comment on above: Order Comment: Name Collection Type:: Voided Performed By: #### C K, BNP, DDIMER, HS TROP, CBC, PT, PTT #### [address] Bilirubin,Urine Negative Normal Negative [facility] Comment on above: Order Comment: Name Collection Type:: Voided Performed By: #### C K, BNP, DDIMER, HS TROP, CBC, PT, PTT #### [address] [place] [address] [place] Color (U) Yellow Normal Yellow [facility] Comment on above: Order Comment: Name Collection Type:: Voided Performed By: #### C K, BNP, DDIMER, HS TROP, CBC, PT, PTT #### [facility] [address] Glucose Ql (U) Normal Normal Normal [facility] Comment on above: Order Comment: Name Collection Type:: Voided Performed By: #### C K, BNP, DDIMER, HS TROP, CBC, PT, PTT #### [address] Hyaline Casts,Urine 0-8 Normal 0-8 [facility] Comment on above: Order Comment: Name Collection Type:: Voided Result Comment: PERF ORMED BY: [place] [address] PATHOLOGIST QUIRK SANDER YORDAN DEVINE M.D. Performed By: #### C K, BNP, DDIMER, HS TROP, CBC, PT, PTT #### [address] Ketones Ql (U) Trace High Negative [facility] Comment on above: Order Comment: Name Collection Type:: Voided Performed By: #### C K, BNP, DDIMER, HS TROP, CBC, PT, PTT #### [address] Leukocyte esterase Test strip Ql (U) Negative Normal Negative [facility] Comment on above: Order Comment: Name Collection Type:: Voided Performed By: #### C K, BNP, DDIMER, HS TROP, CBC, PT, PTT #### [place] [address] [place] Nitrite,Urine Negative Normal Negative [facility] Comment on above: Order Comment: Name Collection Type:: Voided Performed By: #### C K, BNP, DDIMER, HS TROP, CBC, PT, PTT #### [place] [address] [place] Occult Blood,Urine Negative Normal Negative [facility] Comment on above: Order Comment: Name Collection Type:: Voided Result Comment: PERF ORMED BY: [place] [address] PATHOLOGIST QUIRK SANDER YORDAN DEVINE M.D. Performed By: #### C K, BNP, DDIMER, HS TROP, CBC, PT, PTT #### [address] pH (U) 7.0 [pH] Normal 5.0-9.0 [facility] Comment on above: Order Comment: Name Collection Type:: Voided Performed By: #### C K, BNP, DDIMER, HS TROP, CBC, PT, PTT #### [address] Protein (U) [Mass/Vol] 100 mg/dL High Negative [facility] Comment on above: Order Comment: Name Collection Type:: Voided Performed By: #### C K, BNP, DDIMER, HS TROP, CBC, PT, PTT #### [address] RBC LM.HPF (Urine sed) [#/Area] 0 /[HPF] Normal 0-4 [facility] Comment on above: Order Comment: Name Collection Type:: Voided Performed By: #### C K, BNP, DDIMER, HS TROP, CBC, PT, PTT #### [address] Specificy [place],Urine 1.013 Normal 1.001-1.030 [facility] Comment on above: Order Comment: Name Collection Type:: Voided Performed By: #### C K, BNP, DDIMER, HS TROP, CBC, PT, PTT #### [place] [address] [place] Squamous Epithelial Cell,Urine 5-9 High 0-2 [facility] Comment on above: Order Comment: Name Collection Type:: Voided Performed By: #### C K, BNP, DDIMER, HS TROP, CBC, PT, PTT #### [place] [id number] [place] Urobilinogen,Urine Normal Normal Normal [facility] Comment on above: Order Comment: Name Collection Type:: Voided Performed By: #### C K, BNP, DDIMER, HS TROP, CBC, PT, PTT #### [facility] [address] WBC LM.HPF (Urine sed) [#/Area] 0 /[HPF] Normal 0-4 [facility] Comment on above: Order Comment: Name Collection Type:: Voided Performed By: #### C K, BNP, DDIMER, HS TROP, CBC, PT, PTT #### [facility] [address] Eosinophils Auto (Bld) [#/Vo l]Ordered By: Bharati Whiitng on 05-07-2023 Eosinophils (Bld) [#/Vol] 0.0 10*3/uL 0.0-0.45 [facility] Eosinophils/100 WBC Auto (Bl d)Ordered By: Bharati Whiting on 05-07-2023 Eosinophils/100 WBC (Bld) 0.3 % . [facility] Erythrocyte distribution wid th Auto (RBC) [Ratio]Ordered By: Bharati Whiting on 05-07-2023 Erythrocyte distribution width (RBC) [Ratio] 14.7 % 11.9-15.3 [facility] Globulin Calc (S) [Mass/Vol] Ordered By: Bharati Whiting on 05-07-2023 Globulin (S) [Mass/Vol] 3.3 g/dL [facility] Glucose [Mass/volume] in Ser um or PlasmaOrdered By: Bharati Whiting on 05-07-2023 Glucose [Mass/Vol] 77 mg/dL 70-100 [facility] Comment on above: ADA recommended refe rence rangeRandom Glucose Reference Range is dependent on time and content of last meal. Glucose of more than 200 mg/dL in a nonstressed, ambulatory subject supports the diagnosis of Diabetes Mellitus. Hematocrit Auto (Bld) [Volum e fraction]Ordered By: Bharati Whiting on 05-07-2023 Hematocrit (Bld) [Volume fraction] 34.8 % 34.0-46.4 [facility] Hemoglobin [Mass/volume] in BloodOrdered By: Bharati Whiting on 05-07-2023 Hemoglobin (Bld) [Mass/Vol] 11.8 g/dL 11.8-15.4 [facility] Ketones Auto test strip (U) [Mass/Vol]Ordered By: Bharati Whiting on 05-07-2023 Ketones (U) [Mass/Vol] Trace Negative [facility] - UrinalysisOrder ed By: Bharati Whiting on 05-07-2023 Hyaline casts LM Ql (Urine sed) 0-8 [LPF] 0-8 [facility] Leukocytes [#/volume] correc jeff for nucleated erythrocytes in Blood by Automated counOrdered By: Bharati Whiting on 05-07-2023 WBC corrected for nucl RBC Auto (Bld) [#/Vol] 7.6 10*3/uL 3.8-11.6 [facility] Lymphocytes Auto (Bld) [#/Vo l]Ordered By: Bharati Whiting on 05-07-2023 Lymphocytes (Bld) [#/Vol] 1.7 10*3/uL 1.00-4.8 [facility] Lymphocytes/100 WBC Auto (Bl d)Ordered By: Bharati Whiting on 05-07-2023 Lymphocytes/100 WBC (Bld) 22.7 % . [facility] MCH Auto (RBC) [Entitic mass ]Ordered By: Bharati Whiting on 05-07-2023 MCH (RBC) [Entitic mass] 29.3 pg 24.7-34.3 [facility] MCHC Auto (RBC) [Mass/Vol]Or dered By: Bharati Whiting on 05-07-2023 MCHC (RBC) [Mass/Vol] 33.9 g/dL 32.0-35.0 [facility] MCV Auto (RBC) [Entitic vol] Ordered By: Bharati Whiting on 05-07-2023 MCV (RBC) [Entitic vol] 86.4 fL 80-100 [facility] Monocytes Auto (Bld) [#/Vol] Ordered By: Bharati Whiting on 05-07-2023 Monocytes (Bld) [#/Vol] 0.2 10*3/uL 0.0-0.8 [facility] Monocytes/100 WBC Auto (Bld) Ordered By: Bharati Whiting on 05-07-2023 Monocytes/100 WBC (Bld) 3.2 % . [facility] Neutrophils Auto (Bld) [#/Vo l]Ordered By: Bharati Whiting on 05-07-2023 Neutrophils (Bld) [#/Vol] 5.6 10*3/uL 1.8-7.7 [facility] Neutrophils/100 WBC Auto (Bl d)Ordered By: Bharati Whiting on 05-07-2023 Neutrophils/100 WBC (Bld) 73.1 % . [facility] Nitrite Test strip Ql (U)Ord ered By: Bharati Whiting on 05-07-2023 Nitrite Ql (U) Negative Negative [facility] No Panel InformationOrdered By: Bharati Whiting on 05-07-2023 Estimated GFR (CKD-EPI) > 60.0 mL/Min [facility] Creatinine Clearance (Chem 187.43 [facility] Nucleated erythrocytes [Pres ence] in Blood by Automated countOrdered By: Bharati Whiting on 05-07-2023 Nucleated RBC Auto Ql (Bld) 0.1 /100{WBC} 0-0.5 [facility] OB Urine Drug Screen (NO THC )on 05-07-2023 Amphetamine Screen,Urine Negative Normal Negative [facility] Comment on above: Performed By: #### C K, BNP, DDIMER, HS TROP, CBC, PT, PTT #### [facility] [address] [place] [address] Barbiturate Screen,Urine Negative Normal Negative [facility] Comment on above: Performed By: #### C K, BNP, DDIMER, HS TROP, CBC, PT, PTT #### [address] [address] Benzodiazepines Screen,Urine Negative Normal Negative [facility] Comment on above: Performed By: #### C K, BNP, DDIMER, HS TROP, CBC, PT, PTT #### [facility] [address] Cocaine Screen,Urine Negative Normal Negative [facility] Comment on above: Performed By: #### C K, BNP, DDIMER, HS TROP, CBC, PT, PTT #### [facility] [address] Opiate Screen,Urine Negative Normal Negative [facility] Comment on above: Performed By: #### C K, BNP, DDIMER, HS TROP, CBC, PT, PTT #### [facility] [address] Phencyclidine Screen, Urine Negative Normal Negative [facility] Comment on above: Result Comment: Thes e are unconfirmed results and should not be used for legal purposes. Drug Cut-Off Concentration: AMPH 1000 ng/mL TOMMY 200 ng/mL BROOKLYNN 200 ng/mL COCM 300 ng/mL OP 300 ng/mL PCP 25 ng/mL PERFORMED BY: [place] [address] PATHOLOGIST QUIRK SANDER YORDAN DEVINE M.D. Performed By: #### C K, BNP, DDIMER, HS TROP, CBC, PT, PTT #### [facility] [address] Opiates [Presence] in Urine by Screen methodOrdered By: Bharati Whiting on 05-07-2023 Opiates Screen Ql (U) Negative Negative [facility] Phencyclidine Screen Ql (U)O rdered By: Bharati Whiting on 05-07-2023 Phencyclidine Ql (U) Negative Negative [facility] Comment on above: These are unconfirme d results and should not be used for legal purposes. Drug Cut-Off Concentration: AMPH 1000 ng/mL TOMMY 200 ng/mL BROOKLYNN 200 ng/mL COCM 300 ng/mL OP 300 ng/mL PCP 25 ng/mL Platelet mean volume Auto (B ld) [Entitic vol]Ordered By: Bharati Whiting on 05-07-2023 Platelet mean volume (Bld) [Entitic vol] 9.2 fL 6.3-10.7 [facility] Platelets Auto (Bld) [#/Vol] Ordered By: Bharati Whiting on 05-07-2023 Platelets (Bld) [#/Vol] 160 10*3/uL 150-450 [facility] Potassium [Moles/volume] in Serum or PlasmaOrdered By: Bharati Whiting on 05-07-2023 Potassium [Moles/Vol] 3.7 mmol/L 3.5-5.1 [facility] Protein Auto test strip (U) [Mass/Vol]Ordered By: Bharati Whiting on 05-07-2023 Protein (U) [Mass/Vol] 100 mg/dL Negative [facility] Protein [Mass/volume] in Ser um or PlasmaOrdered By: Bharati Whiting on 05-07-2023 Protein [Mass/Vol] 6.7 g/dL 6.4-8.9 [facility] RBC Auto (Bld) [#/Vol]Ordere d By: Bharati Whiting on 05-07-2023 RBC (Bld) [#/Vol] 4.03 10*6/uL 3.60-5.00 [facility] RPR w/rfx to Quant TP Abson 05-07-2023 RPR, Rfx Quant RPR Non-Reactive Normal Non Reactive [facility] Comment on above: Result Comment: Perf ormed at: CB - [facility] [address] [place], [place] [id number] Green Building Engineer: Simón Silver PhD, Phone: [phone] PERFORMED BY: [place] [address] PATHOLOGIST QUIRK SANDER YORDAN DEVINE M.D. Performed By: #### C K, BNP, DDIMER, HS TROP, CBC, PT, PTT #### [place] [address] [place] Reagin Ab [Presence] in Seru m by RPROrdered By: Bharati Whiting on 05-07-2023 Reagin Ab RPR Ql (S) Non-Reactive Non Reactive [facility] Comment on above: Performed at: CB - [facility] [id number] [place], [place] [id number] Director: Simón Silver PhD, Phone: [phone] Serum or plasma albumin/glob ulin mass ratioOrdered By: Bharati Whiting on 05-07-2023 Albumin/Globulin [Mass ratio] 1.0 {ratio} [facility] Serum or plasma anion gap de terminationOrdered By: Bharati Whiting on 05-07-2023 Anion gap [Moles/Vol] 13.1 mmol/L 6.0-15.0 [facility] Sodium [Moles/volume] in Ser um or PlasmaOrdered By: Bharati Whiting on 05-07-2023 Sodium [Moles/Vol] 137 mmol/L 136-145 [facility] Specific gravity Auto test s trip (U) [Rel density]Ordered By: Bharati Whiting on 05-07-2023 Specific gravity (U) [Rel density] 1.013 1.001-1.030 [facility] Squamous epithelial cells de tection in urine sediment by light microscopyOrdered By: Bharati Whiting on 05-07-2023 Epithelial cells.squamous LM Ql (Urine sed) 5-9 [HPF] 0-2 [facility] Urate [Mass/volume] in Serum or PlasmaOrdered By: Bharati Whiting on 05-07-2023 Urate [Mass/Vol] 4.9 mg/dL 2.3-6.6 [facility] Urea nitrogen [Mass/volume] in Serum or PlasmaOrdered By: Bharati Whiting on 05-07-2023 Urea nitrogen [Mass/Vol] 7 mg/dL 7-25 [facility] Uric Acidon 05-07-2023 Urate [Mass/Vol] 4.9 mg/dL Normal 2.3-6.6 [facility] Comment on above: Result Comment: PERF ORMED BY: [place] [address] PATHOLOGIST QUIRK SANDER YORDAN DEVINE M.D. Performed By: #### C K, BNP, DDIMER, HS TROP, CBC, PT, PTT #### [address] Urine bacteria detection by automated methodOrdered By: Bharati Whiting on 05-07-2023 Bacteria Auto Ql (U) None seen None Seen [facility] Urine clarity by refractomet ry automatedOrdered By: Bharati Whiting on 05-07-2023 Clarity Refractometry automated (U) Clear Clear [facility] Urine glucose measurement by automated test strip (mass/volume)Ordered By: Bharati Whiting on 05-07-2023 Glucose Auto test strip (U) [Mass/Vol] Normal mg/dL Normal [facility] Urine hemoglobin detection b y automated test stripOrdered By: Bharati Whiting on 05-07-2023 Hemoglobin Auto test strip Ql (U) Negative Negative [facility] Urine leukocyte esterase det ection by automated test stripOrdered By: Bharati Whiting on 05-07-2023 Leukocyte esterase Auto test strip Ql (U) Negative Negative [facility] Urobilinogen Auto test strip (U) [Mass/Vol]Ordered By: Bharati Whiting on 05-07-2023 Urobilinogen (U) [Mass/Vol] Normal mg/dL Normal [facility] WBC Auto (Bld) [#/Vol]Ordere d By: Bharati Whiting on 05-07-2023 WBC (Bld) [#/Vol] 7.6 10*3/uL 3.8-11.6 [facility] pH Auto test strip (U)Ordere d By: Bharati Whiting on 05-07-2023 pH (U) 7.0 [pH] 5.0-9.0 [facility] Group B Streptococcus cultur eOrdered By: CHELY MCCALL on 04-17-2023 S. agalactiae Org specific cx Ql (Unsp spec) [facility] Strep B Cultureon 04-17-2023 Strep B Culture Strep B Only Cult No Group B Beta Streptococcus Isolated 3 Days PERFORMED BY: [facility] [address] [place] [address] PATHOLOGIST QUIRK SANDER YORDAN DEVINE M.D. Normal [facility] Comment on above: Performed By: #### C K, BNP, DDIMER, HS TROP, CBC, PT, PTT #### [facility] [address] CBC AUTO DIFFon 08-02-2019 Basophils (Bld) [#/Vol] 0.0 103/ul Normal 0.0-0.1 [facility] Comment on above: Performed By: #### C BC #### [facility] [address] [place], [place] [id number] Angelica Anabela Basophils/100 WBC (Bld) 0.4 % Normal 0.2-2.0 [facility] Comment on above: Performed By: #### C BC #### [facility] [address] [place] [address] Angelica Anabela Eosinophils (Bld) [#/Vol] 0.0 103/ul Normal 0.0-0.7 [facility] Comment on above: Performed By: #### C BC #### [facility] [address] [place] [address] Angelica Anabela Eosinophils/100 WBC (Bld) 0.5 % Critically low 0.9-7.0 [facility] Comment on above: Performed By: #### C BC #### [facility] [address] [place] [address] Angelica Anabela Erythrocyte distribution width (RBC) [Ratio] 12.5 % Normal 11.0-15.0 [facility] Comment on above: Performed By: #### C BC #### [facility] [address] [place] [address] Angelica Anabela Hematocrit (Bld) [Volume fraction] 43.1 % Normal 36.0-48.0 [facility] Comment on above: Performed By: #### C BC #### [facility] [address] [place] [address] Angelica Anabela Hemoglobin (Bld) [Mass/Vol] 14.5 g/dL Normal 12.0-16.0 [facility] Comment on above: Performed By: #### C BC #### [facility] [address] [place] [address] Angelica Anabela IG # 0.02 10e3/ul Normal 0.00-0.03 [facility] Comment on above: Performed By: #### C BC #### [facility] [address] [place], [place] [id number] Angelica Anabela IG % 0.3 % Normal 0.0-0.5 [facility] Comment on above: Performed By: #### C BC #### [facility] [address] [place], [place] [phone] Angelica Anabela Lymphocytes (Bld) [#/Vol] 2.1 103/ul Normal 1.2-3.8 [facility] Comment on above: Performed By: #### C BC #### [facility] [address] [place], [place] [phone] Angelica Anabela Lymphocytes/100 WBC (Bld) 27.8 % Normal 20.5-60.0 [facility] Comment on above: Performed By: #### C BC #### [facility] [address] [place] [address] Angelica Anabela MANUAL DIFF REQ NO Normal [facility] Comment on above: Performed By: #### C BC #### [facility] [address] [place] [address] Angelica Anabela MCH (RBC) [Entitic mass] 31.0 pg Normal 26.7-34.0 [facility] Comment on above: Performed By: #### C BC #### [facility] [address] [place] [address] Angelica Anabela MCHC (RBC) [Mass/Vol] 33.6 g/dL Normal 29.9-35.2 [facility] Comment on above: Performed By: #### C BC #### [facility] [address] [place] [address] Angelica Anabela MCV (RBC) [Entitic vol] 92.3 fL Normal 81.0-99.0 [facility] Comment on above: Performed By: #### C BC #### [facility] [address] [place], [place] [phone] Angelica Anabela Monocytes (Bld) [#/Vol] 0.4 103/ul Normal 0.3-0.8 [facility] Comment on above: Performed By: #### C BC #### [facility] [address] [place], [place] [address] Angelica Anabela Monocytes/100 WBC (Bld) 5.5 % Normal 1.7-12.0 [facility] Comment on above: Performed By: #### C BC #### [facility] [address] [place] [address] Angelica Anabela Neutrophils (Bld) [#/Vol] 4.9 103/ul Normal 1.4-6.5 [facility] Comment on above: Performed By: #### C BC #### [facility] [address] [place], [place] [phone] Angelica Anabela Neutrophils/100 WBC (Bld) 65.5 % Normal 43.0-75.0 [facility] Comment on above: Performed By: #### C BC #### [facility] [address] [place], [place] [phone] Angelica Anabela Platelet mean volume (Bld) [Entitic vol] 8.9 fL Critically low 9.5-13.5 [facility] Comment on above: Performed By: #### C BC #### [facility] [address] [place] [address] Angelica Anabela Platelets (Bld) [#/Vol] 212 103/ul Normal 150-450 [facility] Comment on above: Performed By: #### C BC #### [facility] [address] [place] [address] Angelica Anabela RBC (Bld) [#/Vol] 4.67 106/ul Normal 4.20-5.40 [facility] Comment on above: Performed By: #### C BC #### [facility] [address] [place] [address] Angelica Anabela WBC (Bld) [#/Vol] 7.4 103/ul Normal 4.0-11.0 [facility] Comment on above: Performed By: #### C BC #### [facility] [address] [place] [address] Angelica Anabela FREE THYROXINE INDEX T7on FTI 3.36 Normal [facility] Comment on above: Performed By: #### C MP, T7, TSH, LIPID #### [facility] [address] [place] [address] Angelica Anabela T3U 30.0 % Normal 23.5-40.5 [facility] Comment on above: Performed By: #### C MP, T7, TSH, LIPID #### [facility] [address] [place] [address] Angelica Anabela T4 [Mass/Vol] 11.20 ug/dL Critically high 5.53-11.00 [facility] Comment on above: Performed By: #### C MP, T7, TSH, LIPID #### [facility] [address] [place] [address] Angelicabraden Chuen GLYCOHEMOGLOBIN A1Con 2019 Glucose [Mass/Vol] 94 mg/dL Normal [facility] Comment on above: Performed By: #### A 1C #### [facility] [address] [place] [address] Angelicabraden Chuen HbA1c (Bld) [Mass fraction] 4.9 % Normal <=6.0 [facility] Comment on above: Performed By: #### A 1C #### [facility] [address] [place] [address] Angelicabraden Peñaloza LIPID PROFILEon 08-02-2019 CHOL-HDL RATIO NORM SEE BELOW Normal [facility] Comment on above: Result Comment: 3.3 - 4.4 LOW RISK 4.4 - 7.1 AVERAGE RISK 7.1 - 11.0 MODERATE RISK >11.0 HIGH RISK Performed By: #### C MP, T7, TSH, LIPID #### [facility] [address] [place] [address] Angelica Anabela Cholesterol [Mass/Vol] 263 mg/dL Critically high <=200 [facility] Comment on above: Performed By: #### C MP, T7, TSH, LIPID #### [facility] [address] [place] [address] Angelica Anabela Cholesterol in HDL [Mass/Vol] 72 mg/dL Normal [facility] Comment on above: Performed By: #### C MP, T7, TSH, LIPID #### [facility] [address] [place] [address] Angelica Anabela Cholesterol in HDL [Mass/Vol] > or = 60 mg/dl - LOW CARDIOVASCULAR RISK <40 mg/dl - HIGH CARDIOVASCULAR RISK Normal [facility] Comment on above: Performed By: #### C MP, T7, TSH, LIPID #### [facility] [address] [place] [address] Angelica Anabela Cholesterol in LDL [Mass/Vol] SEE BELOW Normal [facility] Comment on above: Result Comment: <100 mg/dl OPTIMAL 100 - 129 mg/dl NEAR OR ABOVE OPTIMAL 130 - 159 mg/dl BORDERLINE HIGH 160 - 189 mg/dl HIGH >190 mg/dl VERY HIGH Performed By: #### C MP, T7, TSH, LIPID #### [facility] [address] [place] [address] Angelica Anabela Cholesterol in LDL [Mass/Vol] 141.8 mg/dL Normal [facility] Comment on above: Performed By: #### C MP, T7, TSH, LIPID #### [facility] [address] [place] [address] Angelica Anabela Cholesterol.total/Chol esterol in HDL [Mass ratio] 3.7 {ratio} Normal [facility] Comment on above: Performed By: #### C MP, T7, TSH, LIPID #### [facility] [address] [place] [address] Angelica Anabela Triglyceride [Mass/Vol] 246 mg/dL Critically high <=150 [facility] Comment on above: Performed By: #### C MP, T7, TSH, LIPID #### [facility] [address] [place] [address] Angelica Anabela VLDL CALC 49.2 mg/dL Normal [facility] Comment on above: Performed By: #### C MP, T7, TSH, LIPID #### [facility] [address] [place], [place] [phone] Angelica Anabela PROF 14(COMP METB)on 020 Albumin [Mass/Vol] 4.0 g/dL Normal 3.5-5.0 [facility] Comment on above: Performed By: #### C MP, T7, TSH, LIPID #### [facility] [address] [place] [phone] Angelica Anabela Albumin/Globulin [Mass ratio] 1.0 {ratio} Normal [facility] Comment on above: Performed By: #### C MP, T7, TSH, LIPID #### [facility] [address] [place] [address] Angelica Anabela ALP [Catalytic activity/Vol] 59 U/L Normal 38-126 [facility] Comment on above: Performed By: #### C MP, T7, TSH, LIPID #### [facility] [address] [place] [address] Angelica Anabela ALT [Catalytic activity/Vol] 32 U/L Normal 9-52 [facility] Comment on above: Performed By: #### C MP, T7, TSH, LIPID #### [facility] [address] [place] [address] Angelica Anabela Anion gap [Moles/Vol] 15.2 mmol/L Normal [facility] Comment on above: Performed By: #### C MP, T7, TSH, LIPID #### [facility] [address] [place] [address] Angelica Anabela AST [Catalytic activity/Vol] 18 U/L Normal 14-36 [facility] Comment on above: Performed By: #### C MP, T7, TSH, LIPID #### [facility] [address] [place] [address] Angelica Anabela Bilirubin Ql (U) 0.4 mg/dL Normal 0.2-1.3 [facility] Comment on above: Performed By: #### C MP, T7, TSH, LIPID #### [facility] [address] [place] [address] Angelica Anabela Calcium [Mass/Vol] 9.5 mg/dL Normal 8.4-10.2 [facility] Comment on above: Performed By: #### C MP, T7, TSH, LIPID #### [facility] [address] [place] [address] Angelica Anabela Chloride [Moles/Vol] 103 mmol/L Normal 98-107 [facility] Comment on above: Performed By: #### C MP, T7, TSH, LIPID #### [facility] [address] [place], [place] [address] Angelica Anabela CO2 [Moles/Vol] 26.9 mmol/L Normal 22.0-30.0 [facility] Comment on above: Performed By: #### C MP, T7, TSH, LIPID #### [facility] [address] [place], [place] [address] Angelica Anabela Creatinine [Mass/Vol] 0.87 mg/dL Normal 0.52-1.04 [facility] Comment on above: Performed By: #### C MP, T7, TSH, LIPID #### [facility] [address] [place] [phone] Angelica Anabela EGFR-AF MOSOTHO >60 Normal >=60 [facility] Comment on above: Performed By: #### C MP, T7, TSH, LIPID #### [facility] [address] [place] [phone] Angelica Anabela EGFR-NON AF MOSOTHO >60 Normal >=60 [facility] Comment on above: Performed By: #### C MP, T7, TSH, LIPID #### [facility] [address] [place], [place] [address] Angelica Anabela Globulin (S) [Mass/Vol] 4.0 g/dL Normal [facility] Comment on above: Performed By: #### C MP, T7, TSH, LIPID #### [facility] [address] [place] [phone] Angelica Anabela Glucose [Mass/Vol] 85 mg/dL Normal 74-106 [facility] Comment on above: Performed By: #### C MP, T7, TSH, LIPID #### [facility] [address] [place], [place] [address] Angelica Anabela Potassium [Moles/Vol] 4.1 mmol/L Normal 3.4-5.0 [facility] Comment on above: Performed By: #### C MP, T7, TSH, LIPID #### [facility] [address] [place] [phone] Angelica Anabela Protein [Mass/Vol] 8.0 g/dL Normal 6.1-8.2 [facility] Comment on above: Performed By: #### C MP, T7, TSH, LIPID #### [facility] [address] [place] [address] Angelica Anabela Sodium [Moles/Vol] 141 mmol/L Normal 137-145 [facility] Comment on above: Performed By: #### C MP, T7, TSH, LIPID #### [facility] [address] [place] [address] Angelica Anabela Urea nitrogen [Mass/Vol] 11.0 mg/dL Normal 7.0-17.0 [facility] Comment on above: Performed By: #### C MP, T7, TSH, LIPID #### [facility] [address] [place] [address] Angelica Anabela Urea nitrogen/Creatinine [Mass ratio] 12.6 mg/mg Normal [facility] Comment on above: Performed By: #### C MP, T7, TSH, LIPID #### [facility] [address] [place] [address] Angelica Anabela TSHon 08-02-2019 TSH Qn SEE BELOW Normal [facility] Comment on above: Result Comment: <0.3 4 UIU/ml HYPERTHYROID 0.34-5.60 UIU/ml EUTHYROID >5.60 UIU/ml HYPOTHYROID Performed By: #### C MP, T7, TSH, LIPID #### [facility] [address] [place] [address] Angelica Anabela TSH Qn 1.741 uIU/mL Normal 0.470-4.680 [facility] Comment on above: Performed By: #### C MP, T7, TSH, LIPID #### [facility] [address] [place], [place] [phone] Angelica Anabela Vital Signs Date Time Vital Sign Value Performing Clinician Juanis page 06-27-2023 03:48-0500 Diastolic blood pressure 65 mm[Hg] MD Chi Clay Work Phone: [facility] 06-27-2023 03:48-0500 Heart rate 83 /min MD Chi Clay Work Phone: [facility] 06-27-2023 03:48-0500 Respiratory rate 18 /min MD Chi Clay Work Phone: [facility] 06-27-2023 03:48-0500 SaO2% (BldA) [Mass fraction] 96 % MD Chi Clay Work Phone: [facility] 06-27-2023 03:48-0500 Systolic blood pressure 118 mm[Hg] MD Chi Clay Work Phone: [facility] 06-27-2023 01:13-0500 Body height 154.94 cm MD Chi Clay Work Phone: [facility] 06-27-2023 01:13-0500 Body temperature 98.1 [degF] MD Chi Clay Work Phone: [facility] 06-27-2023 01:13-0500 Body weight 106.7 kg MD Chi Clay Work Phone: [facility] 05-11-2023 09:00-0500 Body temperature 98.3 [degF] MD Chi Clay Work Phone: [facility] 05-11-2023 09:00-0500 Diastolic blood pressure 87 mm[Hg] MD Chi Clay Work Phone: [facility] 05-11-2023 09:00-0500 Heart rate 93 /min MD Chi Clay Work Phone: [facility] 05-11-2023 09:00-0500 Respiratory rate 16 /min MD Chi Clay Work Phone: [facility] 05-11-2023 09:00-0500 SaO2% (BldA) [Mass fraction] 97 % MD Chi Clay Work Phone: [facility] 05-11-2023 09:00-0500 Systolic blood pressure 134 mm[Hg] MD Chi Clay Work Phone: [facility] 05-09-2023 16:47-0500 Body height 154.94 cm MD Chi Clay Work Phone: [facility] 05-09-2023 16:47-0500 Body weight 117.93 kg MD Chi Clay Work Phone: [facility] 05-07-2023 14:39-0500 Body temperature 98.1 [degF] MD Chi Clay Work Phone: [facility] 05-07-2023 14:39-0500 Diastolic blood pressure 79 mm[Hg] MD Chi Clay Work Phone: [facility] 05-07-2023 14:39-0500 Heart rate 83 /min MD Chi Clay Work Phone: [facility] 05-07-2023 14:39-0500 Respiratory rate 16 /min MD Chi Clay Work Phone: [facility] 05-07-2023 14:39-0500 Systolic blood pressure 138 mm[Hg] MD Chi Clay Work Phone: [facility] 05-07-2023 10:42-0500 Body height 154.94 cm MD Chi Clay Work Phone: [facility] 05-07-2023 10:42-0500 Body weight 117.48 kg MD Chi Clay Work Phone: [facility] 05-07-2023 10:30-0500 SaO2% (BldA) [Mass fraction] 97 % MD Chi Clay Work Phone: [facility] Encounters Encounter Date Encounter Type Care Provider Facility Start: 08-03-2023 ambulatory Facility:[facility] Start: 06-27-2023 End: 06-27-2023 Emergency department patient visit Jonatan Marie Jr Facility:[facility] Start: 06-27-2023 End: 06-27-2023 Emergency department patient visit MD Chi Clay Work Phone: [facility] Work Phone: Start: 06-21-2023 End: 06-21-2023 ambulatory CHELY J NATAPRAWIRA Not Available Start: 05-09-2023 End: 05-11-2023 Evaluation and management of inpatient Chely Nataprawira Facility:[facility] Start: 05-09-2023 End: 05-11-2023 Evaluation and management of inpatient MD Chi Clay Work Phone: [facility] Work Phone: Start: 05-08-2023 End: 05-08-2023 ambulatory CHELY J NATAPRAWIRA Not Available Start: 05-07-2023 End: 05-07-2023 ambulatory Bharati Whiting Facility:[facility] Start: 05-07-2023 End: 05-07-2023 ambulatory MD Chi Clay Work Phone: [facility] Work Phone: Start: 05-07-2023 End: 05-07-2023 Patient encounter procedure MD Chi Clay Work Phone: [facility] Start: 05-01-2023 End: 05-01-2023 ambulatory CHELY J NATAPRAWIRA Not Available Start: 04-24-2023 End: 04-24-2023 ambulatory CHELY J NATAPRAWIRA Not Available Start: 04-17-2023 End: 04-17-2023 ambulatory CHELY J NATAPRAWIRA Not Available Start: 04-17-2023 End: 04-17-2023 ambulatory DO Chely Nataprawira Work Phone: [facility] Work Phone: Start: 04-17-2023 End: 04-17-2023 Departed Referred DO Chely Nataprawira Work Phone: [facility] [place] Work Phone: Start: 04-10-2023 End: 04-10-2023 ambulatory CHELY J NATAPRAWIRA Not Available Start: 08-04-2019 Encounter for genera l adult medical examination without abnormal findings [facility] Start: 08-02-2019 End: 08-03-2019 Patient encounter procedure [facility] WAYZhou Facility:H1 Encounter for genera l adult medical examination without abnormal findings [facility] Procedures Date Procedure Procedure Detail Performing Clinician Start: 04-17-2023 Streptococcus agalactiae culture MD Chi Clay Work Phone: H/O: section Status post C-secti on DO Chely Nataprawira Work Phone: Plan of Treatment Date Care Activity Detail Author Start: 06-27-2023 Computed tomography of abdomen and pelvis with contrast CT abdomen pelvis w con [facility] Start: 06-27-2023 CT Abdomen and Pelvis W contrast IV [facility] Start: 06-27-2023 Plain chest X-ray XR chest 2V* [facility] Start: 06-27-2023 XR Chest 2 Views [facility] Start: 05-11-2023 [facility] Start: 05-10-2023 Hospital admission [facility] Start: 05-07-2023 [facility] Start: 05-07-2023 [facility] Start: 05-07-2023 Hospital admission [facility] Start: 04-17-2023 Group B Streptococcus Culture Group B Streptococcus Culture [facility] Patient Education [facility] Work Phone: Patient referral [facility] Work Phone: Reagin Ab [Presence] in Serum by RPR [facility] Streptococcus agalac tiae [Presence] in Unspecified specimen by Organism specific culture [facility] Immunizations Immunization Date Immunization Notes Care Provider Fa cility 05-11-2023 influenza, injectabl e, quadrivalent, preservative free MD Chi Clay Work Phone: [facility] 05-10-2023 tetanus toxoid, reduced diphtheria toxoid, and acellular pertussis vaccine, adsorbed MD Chi Clay Work Phone: [facility] 06-18-2021 influenza, injectabl e, quadrivalent, preservative free DO Chely Nataprawira Work Phone: [facility] 06-18-2021 tetanus toxoid, reduced diphtheria toxoid, and acellular pertussis vaccine, adsorbed DO Chely Mccall Work Phone: [facility] Payers Date Payer Category Payer Self-pay [id number] 1990 Unknown [id number] 1989 Unknown [id number] 1989 Unknown [id number] 1989 Unknown [id number] 1989 Unknown [id number] 1989 Unknown [id number] 1989 Unknown [id number] 1959 Unknown [id number] Private Health Insurance [facility] [id number] Unknown [id number] Unknown [id number] Unknown [id number] Unknown [id number] Social History Date Type Detail Facility Start: 06-16-2021 End: 05-09-2023 Tobacco smoking status OKIS Never smoked tobacco (finding) [facility] Start: 1990 Sex Assigned At Female F [facility] Start: 06-27-2023 Tobacco smoking stat us NHIS Ex-smoker (finding) [facility] Goals Date Patient Goal Desired Activity /State Functional Status Date Assessment Result Facility 05-11-2023 Functional status Patient at Baseline [facility] Work Phone: Mental Status Date Assessment Result Facility 05-11-2023 Cognitive function Cognitive Sta tus Patient at Baseline [facility] Work Phone: Progress note 05-10-2023 Note Date & Type Note Facility 05-10-2023 Progress note Note Date/Time May 10, 2023 7:26am [facility] [address] [place] [address] SPECIAL SERVICE REPRESENTATIVE Progress Note Signed Patient: Janine Latham MR#: [id number] : 1990 Acct:[id number] Age/Sex: 32 / F Adm Date: 3 Loc: Room: [address] [place] [address] Type: ADM IN Attending Dr: Chely Mccall DO Copies to: ~ Date of Service: 05/10/2023 OB - PN: Subj Subjective Post Delivery Day #: Day 1 Interval history: Patient is doing well and denies complaints. States she got up to ambulate and was dizzy slightly and plans to try again soon with nurse assistance to see if dizziness has resolved. Currently has SCDs on calves bilaterally for DVT prophylaxis. Catheter is still placed. She has not had a bowel movement since delivery. Pain/cramping is tolerable. Patient reports minimal vaginal bleeding. Patient denies lightheadedness, dizziness, chest pain, shortness of breath, swelling, calf tenderness, headache, vision changes. Baby is doing well and is . Patient states mood is appropriate. Urine output adequate overnight Patient comments: no complaints Hendricks baby status: doing well feeding status: exclusively breast feeding OB - PN: Obj Exam Physical Exam Vital signs: Vital Signs - 8 hr 05/10/23 00:05 05/09/23 23:05 05/10/23 01:05 Temperature 95.4 F L 96.1 F L 98.1 F Pulse Rate 76 87 73 Pulse Rate [Monitor] Respiratory Rate 16 20 16 Blood Pressure 131/74 135/79 133/78 Blood Pressure [Right Arm] 02 Sat by Pulse Oximetry 95 95 97 Oxygen Delivery Method 05/10/23 04:00 05/10/23 02:05 Temperature 98.1 F 98.1 F Pulse Rate 58 L Pulse Rate [Monitor] 58 L Respiratory Rate 16 16 Blood Pressure 120/74 Blood Pressure [Right Arm] 119/74 02 Sat by Pulse Oximetry 96 94 L Oxygen Delivery Method Room Air Narrative: General: no acute distress. Resting comfortably in bed. HEENT: Conjunctiva are clear. No scleral icterus. CV: regular rate and rhythm. No murmurs rubs or gallops. Respiratory: Breathing comfortably on room air. Clear to auscultation bilaterally. No wheezes, rhonchi, rales. Abdominal: Soft, nondistended, nontender. [Fundus is firm below the umbilicus. Pfannenstiel incision clean, dry, intact without drainage or erythema Extremities: non-pitting swelling, cyanosis, clubbing. No calf tenderness. Homans sign negative. Skin: No rashes or lesions Neuro: Moves all extremities. Sensation grossly intact. Motor function grossly intact. Psych: Good eye contact. Appropriate mood and affect. Speech is clear. Urinary Catheter Management Urethral (Wells): Cath placed during this visit: no OB - PN: Obj Data Labs 05/09/23 17:05 Labs: 05/09/23 17:05: Uncorrected WBC Count 6.9, MCV 87.2, MCH 29.2, MCHC 33.5, RDW 15.1, Plt Count 152, MPV 9.0, Neut % (Auto) 68.8, Lymph % (Auto) 24.0, [place] % (Auto) 3.9, Eos % (Auto) 1.0, Baso % (Auto) 2.3, Nucleat RBC Rel Count 0.1, Neut # (Auto) 4.7, Lymph # (Auto) 1.7, [place] # (Auto) 0.3, Eos # (Auto) 0.1, Baso # (Auto) 0.2 05/09/23 17:05: RPR w/Rflx to Titer Pending 05/09/23 16:00: Urine Color Yellow, Urine Appearance Cloudy A, Urine pH 6.5, Ur Specific [place] 1.022, Urine Protein 100 H, Urine Glucose (UA) Normal, Urine Ketones 3+ H, Urine Occult Blood Negative, Urine Nitrite Negative, Urine Bilirubin Negative, Urine Urobilinogen Normal, Ur Leukocyte Esterase Negative, Urine RBC 0-1, Urine WBC 1-2, Ur Squamous Epith Cells 10-19 H, Urine Bacteria None seen, Hyaline Casts None seen, Other Casts None seen 05/09/23 16:00: Urine Opiates Screen Negative, Ur Barbiturates Screen Negative, Ur Phencyclidine Scrn Negative, Ur Amphetamines Screen Negative, U Benzodiazepines Scrn Negative, Urine Cocaine Screen Negative Assessment/Plan Assessment (1) Status post : Plan Ms. Latham is a 32 year-old female 1 day post scheduled repeat section for at 38 weeks and 3 days. Blues: Patient reports appropriate mood Breast: No breast complaints. Currently breast feeding Belly: Abdominal pain is controlled. Fundus is appropriately sized. Bottom: Pain is controlled. Continue ibuprofen and Tylenol. Bladder: Catheter is still placed. Baby: Baby is doing well. Breast feeding Bowels: Denies BM. Encourage ambulation and hydration. Continue Colace. Bleeding: Lochia appropriate. Predelivery Hgb 11.4. EBL 700 mL. Postdelivery Hgb ordered for AM. Asymptomatic . Plan day: 1 plan (if applicable): routine postop care Documented By: CHELY MCCALL DO 05/10/23 0629 Signed By: <Electronically signed by CHELY MCCALL DO> 05/10/23 2925 [facility] Work Phone: Procedure note 05-09-2023 Note Date & Type Note Facility 05-09-[address] [facility] Evaluation note Note Date & Type Note Facility Evaluation note No assessment information availa ble [facility] Work Phone: Evaluation note Note Date & Type Note Facility Evaluation note Diagnosis Onset Date Status post acute [facility] Work Phone: Hospital Discharge instructions Note Date & Type Note Facility Hospital Discharge instructions Additional Instructions Call the surgeon to set up an appointment. If there are problems or concerns, we are happy to see you at any time. [facility] Work Phone: Progress note Note Date & Type Note Facility Progress note Note Date/Time May 11, 2023 11:16am [facility] [address] [place] [address] SPECIAL SERVICE REPRESENTATIVE Progress Note Signed Patient: Janine Latham MR#: [id number] : 1990 Acct:[id number] Age/Sex: 32 / F Adm Date: 3 Loc: Room: [address] [place] [address] Type: ADM IN Attending Dr: Chely Mccall DO Copies to: ~ Date of Service: 05/11/2023 OB - PN: Subj Subjective Post Delivery Day #: Day 2 Interval history: Patient is doing well and denies complaints.Patient denies lightheadedness, dizziness, chest pain, shortness of breath, swelling, calf tenderness, headache,vision changes. Baby is doing well and is . Patient states mood is appropriate. OB - PN: Obj Exam Physical Exam Vital signs: Vital Signs - 8 hr 05/11/23 08:55 05/11/23 09:00 Temperature 98.3 F Pulse Rate 92 H Pulse Rate [Monitor] 93 H Respiratory Rate 16 Blood Pressure 134/87 Blood Pressure [Right Arm] 134/87 02 Sat by Pulse Oximetry 97 Oxygen Delivery Method Room Air Constitutional Constitutional: no acute distress HEENT Exam Head: Present normocephalic Neck Exam Neck: Present supple Respiratory Exam Comments: good effort Abdominal Exam Abdominal: Present soft Extremities Exam Comments: Without CCE Skin Exam Skin: Present intact Wound Management Method: suture Examination: Present clean and dry Urinary Catheter Management Urethral (Wells): Cath placed during this visit: no OB - PN: Obj Data Labs 05/10/23 08:25 Labs: 05/09/23 17:05: RPR w/Rflx to Titer Non reactive Assessment/Plan Assessment (1) Status post : Plan: Home today Plan day: 2 plan (if applicable): routine postop care, discharge home and follow up 6 weeks Documented By: ALYSON Cardona 05/11/23 11 14 Signed By: <Electronically signed by ALYSON Drew> 05/11/23 1117 [facility] Work Phone: Summary Purpose Family History No Family History Records Found Relationship Condition Age at Onset Recorded Date/T boom Not Specified Myocardial infarction Unknown Relationship Condition Age at Onset Recorded Date/T boom grandparent Myocardial infarction Unknown Advance Directives No Advanced Directives Records Found Advance Directive Response Recorded Date/ Time Advance Directives No March 08, 2017 5:15pm Chief Complaint and Reason for Visit Chief Complaint Z36.85 38 wks elevated blood pressure, headaches Chief Complaint Z36.85 38 wks elevated blood pressure, headaches IUP (Intrauterine ) Reason for Visit Status post C-sectio n Chief Complaint Z36.85 38 wks elevated blood pressure, headaches IUP (Intrauterine ) chest pain Reason for Visit Status post C-sectio n Additional Source Comments INFORMATION SOURCE (unrecogn ized section and content) DATE CREATED AUTHOR 08/04/2019 [facility] DATE CREATED AUTHOR AUTHOR'S ORGANIZ ATION 06/22/2023 [facility] EPIC DATE CREATED AUTHOR AUTHOR'S ORGANIZ ATION 07/27/2023 [facility] DATE CREATED AUTHOR AUTHOR'S ORGANIZ ATION 08/04/2023 [facility] Care Teams (unrecognized sec tion and content) Team Status: Inactive Member Role Status Mary Mccall DO Attending Provider Active Team Status: Active Member Role Status Mary Clay MD Primary Care Provider Active Team Status: Inactive Member Role Status Mary Clay MD Primary Care Provider Active Bharati Whiting DO Attending Provider Active Team Status: Inactive Member Role Status Dates Chi Clay MD Primary Care Provider Active Chely Mccall DO Admit Provider, Attending Provid er Active Team Status: Inactive Member Role Status Mary Mccall DO Attending Provider Active Start: April 17, 2023 End: April 17, 2023 Team Status: Inactive Member Role Status Mary Clay MD Primary Care Provider Active Start: May 07, 2023 End: May 07, 2023 Bharati Whiting DO Attending Provider Active S tart: May 07, 2023 End: May 07, 2023 Team Status: Inactive Member Role Status Mary Clay MD Primary Care Provider Active Start: May 09, 2023 End: May 11, 2023 Chely Nataprawira , DO Admit Provider, At tending Provider Active Start: May 09, 2023 End: May 11, 2023 Team Status: Inactive Member Role Status Dates Jonatan Marie Jr, MD Emergency Provider Active Start: June 27, 2023 End: June 27, 2023 Chi Clay MD Primary Care Provider Active Start: June 27, 2023 End: June 27, 2023 Goals (unrecognized section and content) Goals may be documented in a n alternate sectionGoals may be documented in an alternate section FOR RECORDS PERTAINING TO PATIENTS WHO ARE OR HAVE BEEN ENROLLED IN A CHEMICAL DEPENDENCY/SUBSTANCEABUSE PROGRAM, SOME INFORMATION MAY BE OMITTED. This clinical summary was aggregated from multiple sources. Caution should be exercised in using it in the provision of clinical care. This summary normalizes information from multiple sources, and as a consequence, information in this document may materially change the coding, format and clinical context of patient data. In addition, data may be omitted in some cases. CLINICAL DECISIONS SHOULD BE BASED ON THE PRIMARY CLINICAL RECORDS. [facility] [employer] provides no warranty or guarantee of the accuracy or completeness of information in this document.
[2023-08-06 07:59] LABS: HCG Qualitative NEGATIVE (NEGATIVE)
== END 2023-08-06 07:25 | disposition home or self-care (01) ==
LOC: LAB 07:25
PROVIDERS: PCP Family Medicine; Visit Provider Radiology Diagnostic Radiology
DX: K80.80 Other cholelithiasis without obstruction (principal)
CPT/HCPCS: 36415; 84703

== ENCOUNTER 2023-10-23 07:58 | Outpatient (OUT) | payer OTHER, SELFPAY ==
--- NOTE | 2023-10-23 08:38 | ECG_ITS ---
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
--- NOTE | 2023-10-23 08:44 | PM.PRESUREVA ---
History of Present Illness History of Present Illness Chief complaint: cholelithiasis Narrative: Patient presents for preadmission testing. The patient states she gave by in April, and she had a gallbladder attack in May of this year. She states her pain has been more controlled since eating a low-fat diet, she has only had 1 episode of abdominal pain in the past week and states it was shorter in duration than previous episodes. She denies any pain at the present time. The patient denies nausea, vomiting, fever, hematuria, or any other complaints. Review of Systems ROS Narrative REVIEW OF SYSTEMS: Negative except as stated in HPI, ten or more systems reviewed. Constitutional: No fever, chills, weakness ENT: No sore throat or epistaxis Cardiovascular: No edema, chest pain, palpitations, or activity intolerance Respiratory: No shortness of breath, cough, or wheezing Musculoskeletal: No joint pain or swelling Genitourinary: No dysuria or hematuria Neurological: No numbness, tingling, weakness, or headache Psychiatric: No mood changes PFSH PFSH Medical History (Updated 10/23/23 @ 08:31 by Shavon Ayers NP) Heart murmur ?R01.1 - Cardiac murmur, unspecified (ICD-10) COVID-19 ?U07.1 - COVID-19 (ICD-10) Migraine ?G43.909 - Migraine, unspecified, not intractable, without status migrainosus (ICD-10) Abdominal pain ?R10.9 - Unspecified abdominal pain (ICD-10) Cholelithiasis ?K80.20 - Calculus of gallbladder without cholecystitis without obstruction (ICD-10) Surgical History (Updated 10/23/23 @ 08:30 by Shavon Ayers NP) History of section ?Z98.891 - History of uterine scar from previous surgery (ICD-10) History of section ?Z98.891 - History of uterine scar from previous surgery (ICD-10) Family History (Updated 10/23/23 @ 08:30 by Shavon Ayers NP) Other Family history of coronary artery disease Family history of heart disease Family history of hypertension Family history of myocardial infarction Social History (Updated 10/23/23 @ 08:25 by Shavon Ayers NP) Within the past year, how often did you have a drink containing alcohol: monthly or less Smoking status: Never smoker Non-prescribed substance use: denies use 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 Highest level of school completed/degree received: Master's degree Meds Home Medications and Allergies Home Medications ?Medication ?Instructions ?Recorded ?Confirmed ?Type norethindrone (contraceptive) 0.35 0.35 mg PO DAILY 10/23/23 10/23/23 History mg tablet (Farzaneh) Allergies Allergy/AdvReac Type Severity Reaction Status Date / Time No Known Drug Allergies Allergy Verified 10/23/23 08:22 Exam Narrative Exam Narrative: Constitutional: Awake, alert, comfortable, well-appearing, nontoxic, interactive, vital signs as charted Head: Normocephalic, atraumatic Neck: Supple, normal appearance, normal range of motion, no meningeal signs, no lymphadenopathy Respiratory: No respiratory distress, breath sounds clear Cardiovascular: Regular rate and rhythm, strong and regular heart tones Abdomen: Nontender, normal bowel sounds, soft, no CVA tenderness Musculoskeletal: Normal gait, no swelling or edema Skin: No rashes or induration, no lesions, only visible skin inspected Neuro: No neurological deficits, normal sensation Psychiatric: Oriented ?3, normal affect Assessment and Plan Assessment and Plan (1) Abdominal pain: (2) Cholelithiasis: Plan Laparoscopic cholecystectomy with possible cholangiogram scheduled with Dr. Puente October 31, 2023.
== END 2023-10-23 07:59 | disposition home or self-care (01) ==
LOC: PST 07:59
PROVIDERS: PCP Family Medicine; Visit Provider Surgery
DX: Z01.810 Encounter for preprocedural cardiovascular examination (principal); Z01.818 Encounter for other preprocedural examination; K80.20 Calculus of gallbladder without cholecystitis without obstruction
CPT/HCPCS: 93005; G0463

== ENCOUNTER 2023-10-31 06:15 | Day surgery (SDC) | payer OTHER, SELFPAY ==
[2023-10-23 08:43] VITALS: BP 116/82; PULSE 74; TEMP 36.3; O2SAT 99; BMI 43.4
[2023-10-31] VITALS (12 sets, daily range): BP systolic 91–117; BP diastolic 52–78; PULSE 54–80; TEMP 36.1–36.2; O2SAT 90–99; BMI 43.6
--- OUTSIDE RECORDS SUMMARY | 2023-10-31 06:18 | XMS_ITS | CCD ---
Author Organization [facility] Care Team Providers Care Kettle Chipper Name Role Phone CHI CLAY Admitting Unavailable CHI CLAY Attending Unavailable CHI CLAY Primary Care Unavailable CHI CLAY Consulting Unavailable DO Chely Mccall Attending Provider MD Chi Clay Primary Care Provider DO Bharati Whiting Attending Provider DO Chely Mccall Admit Provider CHELY MCCALL Attending Unavailable CHELY MCCALL Attending Unavailable CHELY MCCALL Attending Unavailable CHELY MCCALL Attending Unavailable CHELY MCCALL Referring Unavailable CHELY MCCALL Attending Unavailable CHELY MCCALL Attending Unavailable CHELY MCCALL Referring Unavailable MD Jonatan Marie Jr Emergency Provider Chely Mccall Admitting Unavailable Chely Mccall Attending Unavailable Chely Mccall Attending Unavailable Chi Clay Primary Care Unavailable Chely Mccall Admitting Unavailable Bharati Whiting Admitting Unavailable Bharati Whiting Attending Unavailable Chi Clay Primary Care Unavailable Jonatan Marie Jr Attending Unavailable Chi Clay Primary Care Unavailable Jonatan Marie Jr Admitting Unavailable Chi Clay Primary Care Physician Raffi MUNOZ Attending Unavailable Chi Clay Referring Unavailable Allergies Allergy Classification Reported Allergen(s) Allergy Type Date of Onset Reaction(s) Facility (1 source) No Known Medication Allergies; Translations: [No Known Medication Allergies] Propensity to adverse reactions (disorder) [facility] Repository Medications Current Medications Medication Drug Class(es) Dates [...] hours Ibuprofen Discontinued 600 MG PO Q6H May 10, 2023 12:00am June 27, 2023 3:14am Start: 06-18-2021 End: 05-07-2023 take 600 mg by mouth every six hours Ibuprofen Discontinued 600 MG PO Q6H 60 June 18, 2021 12:00am May 07, 2023 [...] hours Acetaminophen Discontinued 1000 MG PO Q6H May 10, 2023 12:00am June 27, 2023 [...] Date Documented Date Episodic/Chronic Biliary tract disease (5 sources) Biliary calculus; Translations: [Calculus of gallbladder without cholecystitis without obstruction] Onset: 4 06-27-2023 Episodic Disorders of lipid metabolism (1 source) Hypertriglyceridemia 08-09-2023 Chronic Nonspecific chest pain (1 source) Chest pain, unspecified; Translations: [Chest pain, unspecified] Onset: 4 Episodic Other nutritional; endocrine; and metabolic disorders (1 source) Body mass index 40+ - severely obese 08-09-2023 Chronic Other nutritional; endocrine; and metabolic disorders (1 source) Morbid obesity 08-09-2023 Chronic Other and delivery including normal (1 source) Encounter for supervision of normal , unspecified, third trimester; Translations: [Encounter for supervision of normal , unspecified, third trimester] Onset: 3 Episodic Residual codes; unclassified (2 sources) History of uterine scar from previous surgery; Translations: [Other postprocedural status] 05-11-2023 Episodic Unclassified (1 source) Gestational [-induced] hypertension without significant proteinuria, third trimester; Translations: [Gestational [-induced] hypertension without significant proteinuria, third trimester] Onset: 3 Unclassified (1 source) Encounter for screening for Streptococcus B; Translations: [Encounter for screening for Streptococcus B] Onset: 3 Results Test Name Value Interpretation Reference Range Facility Consent for Procedure/Surger yon 08-29-2023 Consent for Procedure/Surgery [id number]#1.00TIFF [facility] Ambulatory Visit Summaryon 0 08-28-2023 Ambulatory Visit Summary JANINE LATHAM :1990 Visit Date:08/28/2023 Ambulatory Visit Instructions Your Care Team Attending Physician - ALXEANDER JIMENEZ, Raffi Givens Primary Care Physician - Obed JIMENEZ, Chi Referring Physician - Obed JIMENEZ, Chi Procedures Performed section, section. Discharge Vitals Heart Rate (Peripheral) 87 Respiratory Rate 16 Blood Pressure 125/86 Height 154.94 cm Height 61 in Weight 101 kg Weight 222.2 lb BMI 42.07 Allergies No Known Allergies No Known Medication Allergies Problems Ongoing - Any problem that you are currently receiving treatment for. BMI 40.0-44.9, adult Cholelithiases Hypertriglyceridemia Morbid obesity Patient Survey You may receive a survey via text or e-mail asking about your office visit. Please share your experience with us by completing your survey. We appreciate your feedback and thank you for choosing us for your care. [facility] Consultation Noteon 08-09-19 Consultation Note [id number]#1.00TIFF [facility] ED Note-Physicianon 08-09-19 ED Note-Physician [id number]#1.00TIFF [facility] RAD - CT Reporton 08-09-2023 RAD - CT Report [id number]#1.00TIFF [facility] RAD - Ultrasound Reporton RAD - Ultrasound Report [id number]#1.00TIFF [facility] Physician Referralon 024 Physician Referral [id number]#1.00TIFF [facility] Activated partial thrombopla stin time (aPTT) in platelet poor plasma by coagulation aOrdered By: Jonatan Marie on 06-27-2023 aPTT Coag (PPP) [Time] 31.6 s 25.1-36.5 [facility] Comment on above: A hematocrit value g reater than 55% may lead to inaccurate results in coagulation testing. Patients having hematocrit values >55% require a special collection tube for coagulation studies. Please contact the laboratory at [phone] for redraw instructions. Alanine aminotransferase [En zymatic activity/volume] in Serum or PlasmaOrdered By: Jonatan Marie on 06-27-2023 ALT [Catalytic activity/Vol] 265 U/L 7-52 [facility] Albumin [Mass/volume] in Ser um or Plasma by Bromocresol green (BCG) dye binding methoOrdered By: Jonatan Marie on 06-27-2023 Albumin BCG dye [Mass/Vol] 4.1 g/dL 3.5-5.7 [facility] Alkaline phosphatase [Enzyma tic activity/volume] in Serum or PlasmaOrdered By: Jonatan Marie on 06-27-2023 ALP [Catalytic activity/Vol] 399 U/L 34-104 [facility] Aspartate aminotransferase [ Enzymatic activity/volume] in Serum or PlasmaOrdered By: Jonatan Marie on 06-27-2023 AST [Catalytic activity/Vol] 155 U/L 13-39 [facility] B-Type Natriuretic Peptideon 06-27-2023 Natriuretic peptide B (Bld) [Mass/Vol] 31.0 pg/mL Normal 5-100 [facility] Comment on above: Result Comment: PERF ORMED BY: [place] [address] PATHOLOGIST [employer]PER[employer] YORDAN DEVINE M.D. Performed By: #### C K, BNP, DDIMER, HS TROP, CBC, PT, PTT #### [address] Basophils Auto (Bld) [#/Vol] Ordered By: oJnatan Marie on 06-27-2023 Basophils (Bld) [#/Vol] 0.0 10*3/uL 0.0-0.2 [facility] Basophils/100 WBC Auto (Bld) Ordered By: Jonatan Marie on 06-27-2023 Basophils/100 WBC (Bld) 0.4 % . [facility] Bilirubin.total [Mass/volume ] in Serum or PlasmaOrdered By: Jonatan Marie on 06-27-2023 Bilirubin [Mass/Vol] 0.7 mg/dL 0.3-1.0 [facility] CT abdomen pelvis w conon CT abdomen pelvis w con [facility] [place] [address] CT Scan Report Signed Patient: Janine Latham MR#: [id number] : 1990 Acct:[id number] Age/Sex: 32 / F ADM Date: 06/27/23 Loc: ER Room: Type: [facility] ER Attending Dr: Copies to: Jonatan Marie [...] Malagon Jr., D.O.06/27/2023 8:30 AM Dictation Location: [place] [address] Transcribed By: [facility] 06/27/23829 Dictated By: Nitin Malagon Jr, DO 06/27/23825 Signed By: 06/27/23829 Normal [facility] Calcium [Mass/volume] in Ser um or PlasmaOrdered By: Jonatan Marie on 06-27-2023 Calcium [Mass/Vol] 9.1 mg/dL 8.6-10.3 [facility] Carbon dioxide, total [Moles /volume] in Serum or PlasmaOrdered By: Jonatan Marie on 06-27-2023 CO2 [Moles/Vol] 25.7 mmol/L 21.0-31.0 [facility] Chloride [Moles/volume] in S nasra or PlasmaOrdered By: Jonatan Marie on 06-27-2023 Chloride [Moles/Vol] 106 mmol/L 98-107 [facility] Complete Blood Count Auto Di ffon 06-27-2023 Basophils (Bld) [#/Vol] 0.0 10*3/uL Normal 0.0-0.2 [facility] Comment on above: Result Comment: PERF ORMED BY: [place] [address] PATHOLOGIST [employer] SUPER[employer] YORDAN DEVINE M.D. Performed By: #### C K, BNP, DDIMER, HS TROP, CBC, PT, PTT #### [facility] [address] [place] [address] [place] Basophils/100 WBC (Bld) 0.4 % Normal . [facility] Comment on above: Performed By: #### C K, BNP, DDIMER, HS TROP, CBC, PT, PTT #### [facility] [address] [place] [address] [place] Eosinophils (Bld) [#/Vol] 0.1 10*3/uL Normal 0.0-0.45 [facility] Comment on above: Performed By: #### C K, BNP, DDIMER, HS TROP, CBC, PT, PTT #### [address] Eosinophils/100 WBC (Bld) 1.1 % Normal . [facility] Comment on above: Performed By: #### C K, BNP, DDIMER, HS TROP, CBC, PT, PTT #### [address] Erythrocyte distribution width (RBC) [Ratio] 14.7 % Normal 11.9-15.3 [facility] Comment on above: Performed By: #### C K, BNP, DDIMER, HS TROP, CBC, PT, PTT #### [address] Hematocrit (Bld) [Volume fraction] 36.0 % Normal 34.0-46.4 [facility] Comment on above: Performed By: #### C K, BNP, DDIMER, HS TROP, CBC, PT, PTT #### [address] Hemoglobin (Bld) [Mass/Vol] 11.9 g/dL Normal 11.8-15.4 [facility] Comment on above: Performed By: #### C K, BNP, DDIMER, HS TROP, CBC, PT, PTT #### [address] Lymphocytes (Bld) [#/Vol] 2.3 10*3/uL Normal 1.00-4.8 [facility] Comment on above: Performed By: #### C K, BNP, DDIMER, HS TROP, CBC, PT, PTT #### [address] Lymphocytes/100 WBC (Bld) 32.4 % Normal . [facility] Comment on above: Performed By: #### C K, BNP, DDIMER, HS TROP, CBC, PT, PTT #### [address] MCH (RBC) [Entitic mass] 28.5 pg Normal 24.7-34.3 [facility] Comment on above: Performed By: #### C K, BNP, DDIMER, HS TROP, CBC, PT, PTT #### [address] MCV (RBC) [Entitic vol] 86.3 fL Normal 80-100 [facility] Comment on above: Performed By: #### C K, BNP, DDIMER, HS TROP, CBC, PT, PTT #### [address] Mean Corpuscular HGB Conc 33.1 g/dL Normal 32.0-35.0 [facility] Comment on above: Performed By: #### C K, BNP, DDIMER, HS TROP, CBC, PT, PTT #### [address] Monocytes (Bld) [#/Vol] 0.5 10*3/uL Normal 0.0-0.8 [facility] Comment on above: Performed By: #### C K, BNP, DDIMER, HS TROP, CBC, PT, PTT #### [address] Monocytes/100 WBC (Bld) 19.49 % Normal 0.00-20.00 [facility] Comment on above: Performed By: #### C K, BNP, DDIMER, HS TROP, CBC, PT, PTT #### [address] Monocytes/100 WBC (Bld) 6.9 % Normal . [facility] Comment on above: Performed By: #### C K, BNP, DDIMER, HS TROP, CBC, PT, PTT #### [address] Neutrophils (Bld) [#/Vol] 4.2 10*3/uL Normal 1.8-7.7 [facility] Comment on above: Performed By: #### C K, BNP, DDIMER, HS TROP, CBC, PT, PTT #### [facility] [address] Neutrophils/100 WBC (Bld) 59.2 % Normal . [facility] Comment on above: Performed By: #### C K, BNP, DDIMER, HS TROP, CBC, PT, PTT #### [facility] [address] NRBC% 0.1 /100{WBC} Normal 0-0.5 [facility] Comment on above: Performed By: #### C K, BNP, DDIMER, HS TROP, CBC, PT, PTT #### [address] Platelet mean volume (Bld) [Entitic vol] 7.3 fL Normal 6.3-10.7 [facility] Comment on above: Performed By: #### C K, BNP, DDIMER, HS TROP, CBC, PT, PTT #### [address] Platelets (Bld) [#/Vol] 189 10*3/uL Normal 150-450 [facility] Comment on above: Performed By: #### C K, BNP, DDIMER, HS TROP, CBC, PT, PTT #### [address] RBC (Bld) [#/Vol] 4.17 10*6/uL Normal 3.60-5.00 [facility] Comment on above: Performed By: #### C K, BNP, DDIMER, HS TROP, CBC, PT, PTT #### [address] WBC (Bld) [#/Vol] 7.1 10*3/uL Normal 3.8-11.6 [facility] Comment on above: Performed By: #### C K, BNP, DDIMER, HS TROP, CBC, PT, PTT #### [address] Comprehensive Metabolic Pane emre 06-27-2023 Albumin [Mass/Vol] 4.1 g/dL Normal 3.5-5.7 [facility] Comment on above: Performed By: #### C K, BNP, DDIMER, HS TROP, CBC, PT, PTT #### [facility] [address] Albumin/Globulin [Mass ratio] 1.8 {ratio} Normal [facility] Comment on above: Performed By: #### C K, BNP, DDIMER, HS TROP, CBC, PT, PTT #### [facility] [address] ALP [Catalytic activity/Vol] 399 U/L High 34-104 [facility] Comment on above: Performed By: #### C K, BNP, DDIMER, HS TROP, CBC, PT, PTT #### [address] ALT [Catalytic activity/Vol] 265 U/L High 7-52 [facility] Comment on above: Performed By: #### C K, BNP, DDIMER, HS TROP, CBC, PT, PTT #### [address] Anion gap [Moles/Vol] 9.7 mmol/L Normal 6.0-15.0 [facility] Comment on above: Performed By: #### C K, BNP, DDIMER, HS TROP, CBC, PT, PTT #### [address] AST [Catalytic activity/Vol] 155 U/L High 13-39 [facility] Comment on above: Performed By: #### C K, BNP, DDIMER, HS TROP, CBC, PT, PTT #### [address] Bilirubin [Mass/Vol] 0.7 mg/dL Normal 0.3-1.0 [facility] Comment on above: Performed By: #### C K, BNP, DDIMER, HS TROP, CBC, PT, PTT #### [address] Calcium [Mass/Vol] 9.1 mg/dL Normal 8.6-10.3 [facility] Comment on above: Performed By: #### C K, BNP, DDIMER, HS TROP, CBC, PT, PTT #### [facility] [address] Chloride [Moles/Vol] 106 mmol/L Normal 98-107 [facility] Comment on above: Performed By: #### C K, BNP, DDIMER, HS TROP, CBC, PT, PTT #### [facility] [address] CO2 [Moles/Vol] 25.7 mmol/L Normal 21.0-31.0 [facility] Comment on above: Performed By: #### C K, BNP, DDIMER, HS TROP, CBC, PT, PTT #### [facility] [address] Creatinine [Mass/Vol] 0.79 mg/dL Normal 0.60-1.20 [facility] Comment on above: Performed By: #### C K, BNP, DDIMER, HS TROP, CBC, PT, PTT #### [facility] [address] Creatinine Clr Calc Pharmacy 114.10 [facility] Comment on above: Performed By: #### C K, BNP, DDIMER, HS TROP, CBC, PT, PTT #### [address] GFR/1.73 sq M.predicted MDRD (S/P/Bld) [Vol rate/Area] mL/min/{1.73_m2} [facility] Comment on above: Performed By: #### C K, BNP, DDIMER, HS TROP, CBC, PT, PTT #### [facility] [address] Globulin (S) [Mass/Vol] 2.3 g/dL [facility] Comment on above: Performed By: #### C K, BNP, DDIMER, HS TROP, CBC, PT, PTT #### [address] Glucose [Mass/Vol] 97 mg/dL Normal 70-100 [facility] Comment on above: Result Comment: [facility] Glucose Reference Range is dependent on time and content of last meal. Glucose of more than 200 mg/dL in a nonstressed, ambulatory subject supports the diagnosis of Diabetes Mellitus. ADA recommended reference range Performed By: #### C K, BNP, DDIMER, HS TROP, CBC, PT, PTT #### [facility] [address] Potassium [Moles/Vol] 3.4 mmol/L Low 3.5-5.1 [facility] Comment on above: Performed By: #### C K, BNP, DDIMER, HS TROP, CBC, PT, PTT #### [facility] [address] Protein [Mass/Vol] 6.4 g/dL Normal 6.4-8.9 [facility] Comment on above: Performed By: #### C K, BNP, DDIMER, HS TROP, CBC, PT, PTT #### [facility] [address] Sodium [Moles/Vol] 138 mmol/L Normal 136-145 [facility] Comment on above: Performed By: #### C K, BNP, DDIMER, HS TROP, CBC, PT, PTT #### [facility] [address] Urea nitrogen [Mass/Vol] 15 mg/dL Normal 7-25 [facility] Comment on above: Performed By: #### C K, BNP, DDIMER, HS TROP, CBC, PT, PTT #### [facility] [address] [place] [address] [place] Creatine Kinaseon 06-27-2023 CK [Catalytic activity/Vol] 41 U/L Normal 30-223 [facility] Comment on above: Performed By: #### C K, BNP, DDIMER, HS TROP, CBC, PT, PTT #### [facility] [address] [place] [address] [place] Creatine kinase [Enzymatic a ctivity/volume] in Serum or PlasmaOrdered By: Jonatan Marie on 06-27-2023 CK [Catalytic activity/Vol] 41 U/L 30-223 [facility] Creatinine [Mass/volume] in Serum or PlasmaOrdered By: Jonatan Marie on 06-27-2023 Creatinine [Mass/Vol] 0.79 mg/dL 0.60-1.20 [facility] D-Dimer High Sensitivityon 0 06-27-2023 D-Dimer High Sensitivity < 200 Normal 0-243 [facility] Comment on above: Result Comment: The reference [...] coagulation studies. Please contact the laboratory at [phone] for redraw instructions. PERFORMED BY: [place] [address] PATHOLOGIST [employer] SUPERVISOR YORDAN DEVINE M.D. Performed By: #### C K, BNP, DDIMER, HS TROP, CBC, PT, PTT #### [address] ECG 12 lead ECGon 06-27-2023 ECG 12 lead ECG [facility] [address] [place] [address] [place] [address] Electrocardiograph Report Signed Patient: Janine Latham MR#: [id number] : 1990 Acct:[id number] Age/Sex: 32 / F ADM Date: 06/27/23 Loc: ER Room: Type: [facility] ER Attending Dr: Ordering Provider: Jonatan Marie [...] previous ECGs available Confirmed by Shawanda Thompson ([id number]) on 06/28/2023 5:25:02 PM Referred By: Electronically Signed By:Shawanda Thompson REVISED DOCUMENT/07/19/2023/yamel (corrected prov sig) Transcribed By: MUS Signed By Shawanda Thompson MD 4 0006 Normal [facility] Eosinophils Auto (Bld) [#/Vo l]Ordered By: Jonatan Marie on 06-27-2023 Eosinophils (Bld) [#/Vol] 0.1 10*3/uL 0.0-0.45 [facility] Eosinophils/100 WBC Auto (Bl d)Ordered By: Jonatan Marie on 06-27-2023 Eosinophils/100 WBC (Bld) 1.1 % . [facility] Erythrocyte distribution wid th Auto (RBC) [Ratio]Ordered By: Jonatan Marie on 06-27-2023 Erythrocyte distribution width (RBC) [Ratio] 14.7 % 11.9-15.3 [facility] Fibrin D-dimer [Presence] in Platelet poor plasma by Latex agglutinationOrdered By: Jonatan Marie on 06-27-2023 Fibrin D-dimer LA Ql (PPP) < 200 ng/mL 0-243 [facility] Comment on above: The reference range for [...] coagulation studies. Please contact the laboratory at [phone] for redraw instructions. Globulin Calc (S) [Mass/Vol] Ordered By: Jonatan Marie on 06-27-2023 Globulin (S) [Mass/Vol] 2.3 g/dL [facility] Glucose [Mass/volume] in Ser um or PlasmaOrdered By: Jonatan Marie on 06-27-2023 Glucose [Mass/Vol] 97 mg/dL 70-100 [facility] Comment on above: ADA recommended refe rence rangeRandom Glucose Reference Range is dependent on time and content of last meal. Glucose of more than 200 mg/dL in a nonstressed, ambulatory subject supports the diagnosis of Diabetes Mellitus. Hematocrit Auto (Bld) [Volum e fraction]Ordered By: Jonatan Marie on 06-27-2023 Hematocrit (Bld) [Volume fraction] 36.0 % 34.0-46.4 [facility] Hemoglobin [Mass/volume] in BloodOrdered By: Jonatan Marie on 06-27-2023 Hemoglobin (Bld) [Mass/Vol] 11.9 g/dL 11.8-15.4 [facility] INR in Platelet poor plasma by Coagulation assayOrdered By: Jonatan Marie on 06-27-2023 INR Coag (PPP) [Relative time] 0.8 {INR} [facility] Comment on above: INR Therapeutic Rang e [...] RBC Auto (Bld) [#/Vol] 7.1 10*3/uL 3.8-11.6 [facility] Lipaseon 06-27-2023 Lipase [Catalytic activity/Vol] 15.0 U/L Normal 11.0-82.0 [facility] Comment on above: Result Comment: PERF ORMED BY: [facility] [address] [place] [address] PATHOLOGIST [employer] SUPERVISOR YORDAN DEVINE M.D. Performed By: #### C K, BNP, DDIMER, HS TROP, CBC, PT, PTT #### [facility] [address] Lipase [Enzymatic activity/v olume] in Serum or PlasmaOrdered By: Jonatan Marie on 06-27-2023 Lipase [Catalytic activity/Vol] 15.0 U/L 11.0-82.0 [facility] Lymphocytes Auto (Bld) [#/Vo l]Ordered By: Jonatan Marie on 06-27-2023 Lymphocytes (Bld) [#/Vol] 2.3 10*3/uL 1.00-4.8 [facility] Lymphocytes/100 WBC Auto (Bl d)Ordered By: Jonatan Marie on 06-27-2023 Lymphocytes/100 WBC (Bld) 32.4 % . [facility] MCH Auto (RBC) [Entitic mass ]Ordered By: Jonatan Marie on 06-27-2023 MCH (RBC) [Entitic mass] 28.5 pg 24.7-34.3 [facility] MCHC Auto (RBC) [Mass/Vol]Or dered By: Jonatan Marie on 06-27-2023 MCHC (RBC) [Mass/Vol] 33.1 g/dL 32.0-35.0 [facility] MCV Auto (RBC) [Entitic vol] Ordered By: Jonatan Marie on 06-27-2023 MCV (RBC) [Entitic vol] 86.3 fL 80-100 [facility] Monocyte distribution width [Entitic volume] in Blood by AutomatedOrdered By: Jonatan Marie on 06-27-2023 Monocyte distribution width Auto (Bld) [Entitic vol] 19.49 % 0.00-20.00 [facility] Monocytes Auto (Bld) [#/Vol] Ordered By: Jonatan Marie on 06-27-2023 Monocytes (Bld) [#/Vol] 0.5 10*3/uL 0.0-0.8 [facility] Monocytes/100 WBC Auto (Bld) Ordered By: Jonatan Marie on 06-27-2023 Monocytes/100 WBC (Bld) 6.9 % . [facility] Natriuretic peptide B [Mass/ Vol]Ordered By: Jonatan Marie on 06-27-2023 Natriuretic peptide B (Bld) [Mass/Vol] 31.0 pg/mL 5-100 [facility] Neutrophils Auto (Bld) [#/Vo l]Ordered By: Jonatan Marie on 06-27-2023 Neutrophils (Bld) [#/Vol] 4.2 10*3/uL 1.8-7.7 [facility] Neutrophils/100 WBC Auto (Bl d)Ordered By: Jonatan Marie on 06-27-2023 Neutrophils/100 WBC (Bld) 59.2 % . [facility] No Panel InformationOrdered By: Jonatan Marie on 06-27-2023 Estimated GFR (CKD-EPI) > 60.0 mL/Min [facility] Pharmacy Creatinine Clearance (Chem 114.10 [facility] Nucleated erythrocytes [Pres ence] in Blood by Automated countOrdered By: Jonatan Marie on 06-27-2023 Nucleated RBC Auto Ql (Bld) 0.1 /100{WBC} 0-0.5 [facility] Partial Thromboplastin Timeo n 06-27-2023 aPTT Coag (Bld) [Time] 31.6 s Normal 25.1-36.5 [facility] Comment on above: Result Comment: A he matocrit value greater than 55% may lead to inaccurate results in coagulation testing. Patients having hematocrit values >55% require a special collection tube for coagulation studies. Please contact the laboratory at [phone] for redraw instructions. Performed By: #### C K, BNP, DDIMER, HS TROP, CBC, PT, PTT #### [facility] [address] Platelet mean volume Auto (B ld) [Entitic vol]Ordered By: Jonatan Marie on 06-27-2023 Platelet mean volume (Bld) [Entitic vol] 7.3 fL 6.3-10.7 [facility] Platelets Auto (Bld) [#/Vol] Ordered By: Jonatan Marie on 06-27-2023 Platelets (Bld) [#/Vol] 189 10*3/uL 150-450 [facility] Potassium [Moles/volume] in Serum or PlasmaOrdered By: Jonatan Marie on 06-27-2023 Potassium [Moles/Vol] 3.4 mmol/L 3.5-5.1 [facility] Protein [Mass/volume] in Ser um or PlasmaOrdered By: Jonatan Marie on 06-27-2023 Protein [Mass/Vol] 6.4 g/dL 6.4-8.9 [facility] Prothrombin Time INRon 06-27 INR Coag (PPP) [Relative time] 0.8 {INR} Normal [facility] Comment on above: Result Comment: INR Therapeutic [...] DDIMER, HS TROP, CBC, PT, PTT #### [facility] [address] [id number] [facility] PT Coag (PPP) [Time] 9.7 s Normal 9.0-12.9 [facility] Comment on above: Result Comment: A he matocrit value greater than 55% may lead to inaccurate results in coagulation testing. Patients having hematocrit values >55% require a special collection tube for coagulation studies. Please contact the laboratory at [phone] for redraw instructions. Performed By: #### C K, BNP, DDIMER, HS TROP, CBC, PT, PTT #### [facility] [address] [id number] [facility] Prothrombin time (PT)Ordered By: Jonatan Marie on 06-27-2023 PT Coag (PPP) [Time] 9.7 s 9.0-12.9 [facility] Comment on above: A hematocrit value g reater than 55% may lead to inaccurate results in coagulation testing. Patients having hematocrit values >55% require a special collection tube for coagulation studies. Please contact the laboratory at [phone] for redraw instructions. RBC Auto (Bld) [#/Vol]Ordere d By: Jonatan Marie on 06-27-2023 RBC (Bld) [#/Vol] 4.17 10*6/uL 3.60-5.00 [facility] Serum or plasma albumin/glob ulin mass ratioOrdered By: Jonatan Marie on 06-27-2023 Albumin/Globulin [Mass ratio] 1.8 {ratio} [facility] Serum or plasma anion gap de terminationOrdered By: Jonatan Marie on 06-27-2023 Anion gap [Moles/Vol] 9.7 mmol/L 6.0-15.0 [facility] Sodium [Moles/volume] in Ser um or PlasmaOrdered By: Jonatan Marie on 06-27-2023 Sodium [Moles/Vol] 138 mmol/L 136-145 [facility] Troponin I High Sensitivityo n 06-27-2023 Troponin I High Sensitivity 3.6 pg/mL Normal 0.0-15.0 [facility] Comment on above: Result Comment: PERF ORMED BY: [place] [address] PATHOLOGIST [employer]PER[employer] YORDAN DEVINE M.D. Performed By: #### C K, BNP, DDIMER, HS TROP, CBC, PT, PTT #### [address] Troponin I.cardiac [Mass/vol ume] in Serum or Plasma by Detection limit <= 0.01 ng/Ordered By: Jonatan Marie on 06-27-2023 Troponin I.cardiac DL <= 0.01 ng/mL [Mass/Vol] 3.6 pg/mL 0.0-15.0 [facility] Urea nitrogen [Mass/volume] in Serum or PlasmaOrdered By: Jonatan Marie on 06-27-2023 Urea nitrogen [Mass/Vol] 15 mg/dL 7-25 [facility] WBC Auto (Bld) [#/Vol]Ordere d By: Jonatan Marie on 06-27-2023 WBC (Bld) [#/Vol] 7.1 10*3/uL 3.8-11.6 [facility] XR chest 2V*on 06-27-2023 XR chest 2V* [facility] [place] [address] [place] [id number] XRay Report Signed Patient: Janine Latham MR#: [id number] : 1990 Acct:[id number] Age/Sex: 32 / F ADM Date: 06/27/23 Loc: ER Room: Type: [facility] ER Attending Dr: Copies to: Jonatan Marie [...] Malagon Jr., D.O.06/27/2023 8:14 AM Dictation Location: [place] [address] Transcribed By: [facility] 06/27/2314 Dictated By: Nitin Malagon Jr, DO 06/27/2313 Signed By: 06/27/2314 Normal [facility] Basophils Auto (Bld) [#/Vol] Ordered By: CHELY MCCALL on 05-10-2023 Basophils (Bld) [#/Vol] 0.1 10*3/uL 0.0-0.2 [facility] Basophils/100 WBC Auto (Bld) Ordered By: CHELY MCCALL on 05-10-2023 Basophils/100 WBC (Bld) 0.7 % . [facility] Complete Blood Count Auto Di ffon 05-10-2023 Basophils (Bld) [#/Vol] 0.1 10*3/uL Normal 0.0-0.2 [facility] Comment on above: Result Comment: PERF ORMED BY: [address] [address] PATHOLOGIST [employer] SUPER[employer] YORDAN DEVINE M.D. Performed By: #### C K, BNP, DDIMER, HS TROP, CBC, PT, PTT #### [address] Basophils/100 WBC (Bld) 0.7 % Normal . [facility] Comment on above: Performed By: #### C K, BNP, DDIMER, HS TROP, CBC, PT, PTT #### [address] Eosinophils (Bld) [#/Vol] 0.0 10*3/uL Normal 0.0-0.45 [facility] Comment on above: Performed By: #### C K, BNP, DDIMER, HS TROP, CBC, PT, PTT #### [address] Eosinophils/100 WBC (Bld) 0.0 % Normal . [facility] Comment on above: Performed By: #### C K, BNP, DDIMER, HS TROP, CBC, PT, PTT #### [address] Erythrocyte distribution width (RBC) [Ratio] 14.9 % Normal 11.9-15.3 [facility] Comment on above: Performed By: #### C K, BNP, DDIMER, HS TROP, CBC, PT, PTT #### [address] Hematocrit (Bld) [Volume fraction] 30.6 % Low 34.0-46.4 [facility] Comment on above: Performed By: #### C K, BNP, DDIMER, HS TROP, CBC, PT, PTT #### [address] Hemoglobin (Bld) [Mass/Vol] 10.4 g/dL Low 11.8-15.4 [facility] Comment on above: Performed By: #### C K, BNP, DDIMER, HS TROP, CBC, PT, PTT #### [address] Lymphocytes (Bld) [#/Vol] 1.2 10*3/uL Normal 1.00-4.8 [facility] Comment on above: Performed By: #### C K, BNP, DDIMER, HS TROP, CBC, PT, PTT #### [address] Lymphocytes/100 WBC (Bld) 13.3 % Normal . [facility] Comment on above: Performed By: #### C K, BNP, DDIMER, HS TROP, CBC, PT, PTT #### [address] MCH (RBC) [Entitic mass] 29.9 pg Normal 24.7-34.3 [facility] Comment on above: Performed By: #### C K, BNP, DDIMER, HS TROP, CBC, PT, PTT #### [address] MCV (RBC) [Entitic vol] 88.4 fL Normal 80-100 [facility] Comment on above: Performed By: #### C K, BNP, DDIMER, HS TROP, CBC, PT, PTT #### [address] Mean Corpuscular HGB Conc 33.8 g/dL Normal 32.0-35.0 [facility] Comment on above: Performed By: #### C K, BNP, DDIMER, HS TROP, CBC, PT, PTT #### [address] Monocytes (Bld) [#/Vol] 0.5 10*3/uL Normal 0.0-0.8 [facility] Comment on above: Performed By: #### C K, BNP, DDIMER, HS TROP, CBC, PT, PTT #### [address] Monocytes/100 WBC (Bld) 5.9 % Normal . [facility] Comment on above: Performed By: #### C K, BNP, DDIMER, HS TROP, CBC, PT, PTT #### [address] Neutrophils (Bld) [#/Vol] 7.4 10*3/uL Normal 1.8-7.7 [facility] Comment on above: Performed By: #### C K, BNP, DDIMER, HS TROP, CBC, PT, PTT #### [address] Neutrophils/100 WBC (Bld) 80.1 % Normal . [facility] Comment on above: Performed By: #### C K, BNP, DDIMER, HS TROP, CBC, PT, PTT #### [address] NRBC% 0.1 /100{WBC} Normal 0-0.5 [facility] Comment on above: Performed By: #### C K, BNP, DDIMER, HS TROP, CBC, PT, PTT #### [address] Platelet mean volume (Bld) [Entitic vol] 8.7 fL Normal 6.3-10.7 [facility] Comment on above: Performed By: #### C K, BNP, DDIMER, HS TROP, CBC, PT, PTT #### [address] Platelets (Bld) [#/Vol] 155 10*3/uL Normal 150-450 [facility] Comment on above: Performed By: #### C K, BNP, DDIMER, HS TROP, CBC, PT, PTT #### [address] RBC (Bld) [#/Vol] 3.46 10*6/uL Low 3.60-5.00 [facility] Comment on above: Performed By: #### C K, BNP, DDIMER, HS TROP, CBC, PT, PTT #### [address] WBC (Bld) [#/Vol] 9.2 10*3/uL Normal 3.8-11.6 [facility] Comment on above: Performed By: #### C K, BNP, DDIMER, HS TROP, CBC, PT, PTT #### [address] Eosinophils Auto (Bld) [#/Vo l]Ordered By: CHELY MCCALL on 05-10-2023 Eosinophils (Bld) [#/Vol] 0.0 10*3/uL 0.0-0.45 [facility] Eosinophils/100 WBC Auto (Bl d)Ordered By: CHELY MCCALL on 05-10-2023 Eosinophils/100 WBC (Bld) 0.0 % . [facility] Erythrocyte distribution wid th Auto (RBC) [Ratio]Ordered By: CHELY MCCALL on 05-10-2023 Erythrocyte distribution width (RBC) [Ratio] 14.9 % 11.9-15.3 [facility] Hematocrit Auto (Bld) [Volum e fraction]Ordered By: CHELY MCCALL on 05-10-2023 Hematocrit (Bld) [Volume fraction] 30.6 % 34.0-46.4 [facility] Hemoglobin [Mass/volume] in BloodOrdered By: CHELY MCCALL on 05-10-2023 Hemoglobin (Bld) [Mass/Vol] 10.4 g/dL 11.8-15.4 [facility] Leukocytes [#/volume] correc jeff for nucleated erythrocytes in Blood by Automated counOrdered By: CHELY MCCALL on 05-10-2023 WBC corrected for nucl RBC Auto (Bld) [#/Vol] 9.2 10*3/uL 3.8-11.6 [facility] Lymphocytes Auto (Bld) [#/Vo l]Ordered By: CHELY MCCALL on 05-10-2023 Lymphocytes (Bld) [#/Vol] 1.2 10*3/uL 1.00-4.8 [facility] Lymphocytes/100 WBC Auto (Bl d)Ordered By: CHELY MCCALL on 05-10-2023 Lymphocytes/100 WBC (Bld) 13.3 % . [facility] MCH Auto (RBC) [Entitic mass ]Ordered By: CHELY MCCALL on 05-10-2023 MCH (RBC) [Entitic mass] 29.9 pg 24.7-34.3 [facility] MCHC Auto (RBC) [Mass/Vol]Or dered By: CHELY MCCALL on 05-10-2023 MCHC (RBC) [Mass/Vol] 33.8 g/dL 32.0-35.0 [facility] MCV Auto (RBC) [Entitic vol] Ordered By: CHELY MCCALL on 05-10-2023 MCV (RBC) [Entitic vol] 88.4 fL 80-100 [facility] Monocytes Auto (Bld) [#/Vol] Ordered By: CHELY MCCALL on 05-10-2023 Monocytes (Bld) [#/Vol] 0.5 10*3/uL 0.0-0.8 [facility] Monocytes/100 WBC Auto (Bld) Ordered By: CHELY MCCALL on 05-10-2023 Monocytes/100 WBC (Bld) 5.9 % . [facility] Neutrophils Auto (Bld) [#/Vo l]Ordered By: CHELY MCCALL on 05-10-2023 Neutrophils (Bld) [#/Vol] 7.4 10*3/uL 1.8-7.7 [facility] Neutrophils/100 WBC Auto (Bl d)Ordered By: CHELY MCCALL on 05-10-2023 Neutrophils/100 WBC (Bld) 80.1 % . [facility] Nucleated erythrocytes [Pres ence] in Blood by Automated countOrdered By: CHELY MCCALL on 05-10-2023 Nucleated RBC Auto Ql (Bld) 0.1 /100{WBC} 0-0.5 [facility] Platelet mean volume Auto (B ld) [Entitic vol]Ordered By: CHELY MCCALL on 05-10-2023 Platelet mean volume (Bld) [Entitic vol] 8.7 fL 6.3-10.7 [facility] Platelets Auto (Bld) [#/Vol] Ordered By: CHELY MCCALL on 05-10-2023 Platelets (Bld) [#/Vol] 155 10*3/uL 150-450 [facility] RBC Auto (Bld) [#/Vol]Ordere d By: CHELY MCCALL on 05-10-2023 RBC (Bld) [#/Vol] 3.46 10*6/uL 3.60-5.00 [facility] WBC Auto (Bld) [#/Vol]Ordere d By: CHELY MCCALL on 05-10-2023 WBC (Bld) [#/Vol] 9.2 10*3/uL 3.8-11.6 [facility] Amphetamine Screen Ql (U)Ord ered By: CHELY MCCALL on 05-09-2023 Amphetamines Ql (U) Negative Negative [facility] Automated erythrocytes count in urine sediment (number/area)Ordered By: CHELY MCCALL on 05-09-2023 RBC Auto (Urine sed) [#/Area] 0-1 [HPF] 0-4 [facility] Automated leukocytes count i n urine sediment (number/area)Ordered By: CHELY MCCALL on 05-09-2023 WBC Auto (Urine sed) [#/Area] 1-2 [HPF] 0-4 [facility] Automated urine color determ inationOrdered By: CHELY MCCALL on 05-09-2023 Color (U) Yellow Normal Yellow [facility] Comment on above: Order Comment: Name Collection Type:: Clean-Voided Midstream Performed By: #### C K, BNP, DDIMER, HS TROP, CBC, PT, PTT #### [address] Automated urine hyaline cast s count (number/volume)Ordered By: CHELY MCCALL on 05-09-2023 Hyaline casts Auto (U) [#/Vol] None seen [LPF] 0-1 [facility] Barbiturates [Presence] in U rine by Screen methodOrdered By: CHELY MCCALL on 05-09-2023 Barbiturates Screen Ql (U) Negative Negative [facility] Benzodiazepines Screen Ql (U )Ordered By: CHELY MCCALL on 05-09-2023 Benzodiazepines Ql (U) Negative [facility] Ben[facility] [Presence] i n Urine by Screen methodOrdered By: CHELY MCCALL on 05-09-2023 Benzoylecgonine Screen Ql (U) Negative Negative [facility] Bilirubin Test strip Ql (U)O rdered By: CHELY MCCALL on 05-09-2023 Bilirubin Ql (U) Negative Negative [facility] Casts typing in urine sedime nt by light microscopyOrdered By: CHELY MCCALL on 05-09-2023 Casts LM Nom (Urine sed) None seen [LPF] None Seen [facility] Complete Blood Count Auto Di ffon 05-09-2023 Basophils (Bld) [#/Vol] 0.2 10*3/uL Normal 0.0-0.2 [facility] Comment on above: Result Comment: PERF ORMED BY: [place] [address] PATHOLOGIST [employer] SUPER[employer] YORDAN DEVINE M.D. Performed By: #### C BC #### [address] Basophils/100 WBC (Bld) 2.3 % Normal . [facility] Comment on above: Performed By: #### C BC #### [address] Eosinophils (Bld) [#/Vol] 0.1 10*3/uL Normal 0.0-0.45 [facility] Comment on above: Performed By: #### C BC #### [address] Eosinophils/100 WBC (Bld) 1.0 % Normal . [facility] Comment on above: Performed By: #### C BC #### [address] Erythrocyte distribution width (RBC) [Ratio] 15.1 % Normal 11.9-15.3 [facility] Comment on above: Performed By: #### C BC #### [address] Hematocrit (Bld) [Volume fraction] 34.1 % Normal 34.0-46.4 [facility] Comment on above: Performed By: #### C BC #### [address] Hemoglobin (Bld) [Mass/Vol] 11.4 g/dL Low 11.8-15.4 [facility] Comment on above: Performed By: #### C BC #### [facility] [address] Lymphocytes (Bld) [#/Vol] 1.7 10*3/uL Normal 1.00-4.8 [facility] Comment on above: Performed By: #### C BC #### [facility] [address] Lymphocytes/100 WBC (Bld) 24.0 % Normal . [facility] Comment on above: Performed By: #### C BC #### [facility] [address] MCH (RBC) [Entitic mass] 29.2 pg Normal 24.7-34.3 [facility] Comment on above: Performed By: #### C BC #### [facility] [address] MCV (RBC) [Entitic vol] 87.2 fL Normal 80-100 [facility] Comment on above: Performed By: #### C BC #### [facility] [address] Mean Corpuscular HGB Conc 33.5 g/dL Normal 32.0-35.0 [facility] Comment on above: Performed By: #### C BC #### [facility] [address] Monocytes (Bld) [#/Vol] 0.3 10*3/uL Normal 0.0-0.8 [facility] Comment on above: Performed By: #### C BC #### [facility] [address] [place] [address] [place] Monocytes/100 WBC (Bld) 3.9 % Normal . [facility] Comment on above: Performed By: #### C BC #### [address] Neutrophils (Bld) [#/Vol] 4.7 10*3/uL Normal 1.8-7.7 [facility] Comment on above: Performed By: #### C BC #### [facility] [address] Neutrophils/100 WBC (Bld) 68.8 % Normal . [facility] Comment on above: Performed By: #### C BC #### [facility] [address] NRBC% 0.1 /100{WBC} Normal 0-0.5 [facility] Comment on above: Performed By: #### C BC #### [address] Platelet mean volume (Bld) [Entitic vol] 9.0 fL Normal 6.3-10.7 [facility] Comment on above: Performed By: #### C BC #### [address] Platelets (Bld) [#/Vol] 152 10*3/uL Normal 150-450 [facility] Comment on above: Performed By: #### C BC #### [address] RBC (Bld) [#/Vol] 3.91 10*6/uL Normal 3.60-5.00 [facility] Comment on above: Performed By: #### C BC #### [address] WBC (Bld) [#/Vol] 6.9 10*3/uL Normal 3.8-11.6 [facility] Comment on above: Performed By: #### C BC #### [address] Dipstick and Microscopicon 1 07-10-2022 Appearance (U) Cloudy Critically abnormal Clear [facility] Comment on above: Order Comment: Name Collection Type:: Clean-Voided Midstream Performed By: #### C K, BNP, DDIMER, HS TROP, CBC, PT, PTT #### [address] Bacteria,Urine None Seen Normal None Seen [facility] Comment on above: Order Comment: Name Collection Type:: Clean-Voided Midstream Performed By: #### C K, BNP, DDIMER, HS TROP, CBC, PT, PTT #### [facility] [address] Bilirubin,Urine Negative Normal Negative [facility] Comment on above: Order Comment: Name Collection Type:: Clean-Voided Midstream Performed By: #### C K, BNP, DDIMER, HS TROP, CBC, PT, PTT #### [facility] [address] Glucose Ql (U) Normal Normal Normal [facility] Comment on above: Order Comment: Name Collection Type:: Clean-Voided Midstream Performed By: #### C K, BNP, DDIMER, HS TROP, CBC, PT, PTT #### [facility] [address] [place] [address] Hyaline Casts,Urine None Seen Normal 0-1 [facility] Comment on above: Order Comment: Name Collection Type:: Clean-Voided Midstream Performed By: #### C K, BNP, DDIMER, HS TROP, CBC, PT, PTT #### [facility] [address] [place] [address] Ketones Ql (U) 3+ High Negative [facility] Comment on above: Order Comment: Name Collection Type:: Clean-Voided Midstream Performed By: #### C K, BNP, DDIMER, HS TROP, CBC, PT, PTT #### [facility] [address] [place] [address] Leukocyte esterase Test strip Ql (U) Negative Normal Negative [facility] Comment on above: Order Comment: Name Collection Type:: Clean-Voided Midstream Performed By: #### C K, BNP, DDIMER, HS TROP, CBC, PT, PTT #### [facility] [address] [place] [address] [place] Nitrite,Urine Negative Normal Negative [facility] Comment on above: Order Comment: Name Collection Type:: Clean-Voided Midstream Performed By: #### C K, BNP, DDIMER, HS TROP, CBC, PT, PTT #### [address] Occult Blood,Urine Negative Normal Negative [facility] Comment on above: Order Comment: Name Collection Type:: Clean-Voided Midstream Result Comment: PERF ORMED BY: [place] [address] PATHOLOGIST [employer] SUPERVIS[employer] YORDAN DEVINE M.D. Performed By: #### C K, BNP, DDIMER, HS TROP, CBC, PT, PTT #### [address] Other Casts,Urine None Seen Normal None Seen [facility] Comment on above: Order Comment: Name Collection Type:: Clean-Voided Midstream Result Comment: PERF ORMED BY: [place] [address] PATHOLOGIST [employer] SUPER[employer] YORDAN DEVINE M.D. Performed By: #### C K, BNP, DDIMER, HS TROP, CBC, PT, PTT #### [address] RBC LM.HPF (Urine sed) [#/Area] 0 /[HPF] Normal 0-4 [facility] Comment on above: Order Comment: Name Collection Type:: Clean-Voided Midstream Performed By: #### C K, BNP, DDIMER, HS TROP, CBC, PT, PTT #### [address] Specificy [place],Urine 1.022 Normal 1.001-1.030 [facility] Comment on above: Order Comment: Name Collection Type:: Clean-Voided Midstream Performed By: #### C K, BNP, DDIMER, HS TROP, CBC, PT, PTT #### [place] [address] [place] Squamous Epithelial Cell,Urine 10-19 High 0-2 [facility] Comment on above: Order Comment: Name Collection Type:: Clean-Voided Midstream Performed By: #### C K, BNP, DDIMER, HS TROP, CBC, PT, PTT #### [address] [place] [address] [place] Urobilinogen,Urine Normal Normal Normal [facility] Comment on above: Order Comment: Name Collection Type:: Clean-Voided Midstream Performed By: #### C K, BNP, DDIMER, HS TROP, CBC, PT, PTT #### [facility] [address] WBC,Urine 1-2 Normal 0-4 [facility] Comment on above: Order Comment: Name Collection Type:: Clean-Voided Midstream Performed By: #### C K, BNP, DDIMER, HS TROP, CBC, PT, PTT #### [facility] [address] Ketones Auto test strip (U) [Mass/Vol]Ordered By: CHELY MCCALL on 05-09-2023 Ketones (U) [Mass/Vol] 3+ Negative [facility] Emre 05-09-2023 L ------ Specimen: [id number] Received: 05/10/23 Status: MATEO Venegas Num: [id number] Spec Type: Surgical Subm Dr: CHELY MCCALL DO Tissues: A Placenta - 3rd Trimester (Greater than 28 weeks) (PLACENTA AND CORD) Procedures: HE/3, Gross/Micro L5 Age/ Patient Sex Location Account Attending Physician Janine Latham 32/F 3S [id number] BENJIECHELY DO SPEC NUM: [id number] RECD: 05/10/23 STATUS: MATEO PASCALE NUM: [id number] KATHY: 05/09/[address] [facility] [address]: CHELY MCCALL DO ENTERED: 05/10/[address] [facility] [address]: LEATHA TYPE: Surgical DEPT: S ORDERED: [...] surface is spongy, red without discrete lesion. [employer] sections are submitted in 2 cassettes as follows: A1 - cord and central disc A2 - membranes and marginal disc Specimen: [id number] Received: 05/10/23 Status: MATEO Venegas Num: [id number] Spec Type: Surgical Subm Dr: CHELY MCCALL DO Tissues: A Placenta - 3rd Trimester (Greater than 28 weeks) (PLACENTA AND CORD) Procedures: HE/3, Gross/Micro L5 Patient: Janine Latham [id number] (Continued) Specimen: [id number] Received: 05/10/23 (Continued) Signed (signature on file) Vanessa Vasquez MD 05/14/231955 Specimen: [id number] Received: 05/10/23 Status: MATEO Venegas Num: [id number] Spec Type: Surgical Subm Dr: CHELY MCCALL DO Tissues: A Placenta - 3rd Trimester (Greater than 28 weeks) (PLACENTA AND CORD) Procedures: HE/3, Gross/Micro L5 Patient: YeisonJanine [id number] (Continued) Specimen: [id number] Received: 05/10/23 (Continued) Microscopic Description Two H E slides reviewed. The microscopic examination confirms the diagnosis. CPT Codes 83214 Specimen: [id number] Received: 05/10/23 Status: MATEO Venegas Num: [id number] Spec Type: Surgical Subm Dr: CHELY MCCALL DO Tissues: A Placenta - 3rd Trimester (Greater than 28 weeks) (PLACENTA AND CORD) Procedures: HE/3, Gross/Micro L5 Patient: Janine Latham [id number] (Continued) Signed (signature on file) Vanessa Vasquez MD 05/14/231955 Normal [facility] Nitrite Test strip Ql (U)Ord ered By: CHELY MCCALL on 05-09-2023 Nitrite Ql (U) Negative Negative [facility] OB Urine Drug Screen (NO THC )on 05-09-2023 Amphetamine Screen,Urine Negative Normal Negative [facility] Comment on above: Performed By: #### R IL W RFX #### [facility] , #### OBUDS #### [facility] [address] [place] [address] Barbiturate Screen,Urine Negative Normal Negative [facility] Comment on above: Performed By: #### R IL W RFX #### [facility] , #### OBUDS #### [place] [address] [place] Benzodiazepines Screen,Urine Negative Normal Negative [facility] Comment on above: Performed By: #### R IL W RFX #### [facility] , #### OBUDS #### [place] [address] [place] Cocaine Screen,Urine Negative Normal Negative [facility] Comment on above: Performed By: #### R IL W RFX #### [facility] , #### OBUDS #### [address] Opiate Screen,Urine Negative Normal Negative [facility] Comment on above: Performed By: #### R IL W RFX #### [facility] , #### OBUDS #### [address] Phencyclidine Screen, Urine Negative Normal Negative [facility] Comment on above: Result Comment: Thes e are unconfirmed results and should not be used for legal purposes. Drug Cut-Off Concentration: AMPH 1000 ng/mL TOMMY 200 ng/mL BROOKLYNN 200 ng/mL COCM 300 ng/mL OP 300 ng/mL PCP 25 ng/mL PERFORMED BY: [place] [address] PATHOLOGIST [employer] SUPERVIS[employer] YORDAN DEVINE M.D. Performed By: #### R IL W RFX #### [facility] , #### OBUDS #### [facility] [address] [place] [address] Opiates [Presence] in Urine by Screen methodOrdered By: CHELY MCCALL on 05-09-2023 Opiates Screen Ql (U) Negative Negative [facility] Phencyclidine Screen Ql (U)O rdered By: CHELY MCCALL on 05-09-2023 Phencyclidine Ql (U) Negative Negative [facility] Comment on above: These are unconfirme d results and should not be used for legal purposes. Drug Cut-Off Concentration: AMPH 1000 ng/mL TOMMY 200 ng/mL BROOKLYNN 200 ng/mL COCM 300 ng/mL OP 300 ng/mL PCP 25 ng/mL RPR w/rfx to Quant TP Abson 05-09-2023 RPR, Rfx Quant RPR Non-Reactive Normal Non Reactive [facility] [facility] Comment on above: Result Comment: Perf ormed at: CB - [facility] [address] [id number] Hog Pusher: Simón Silver PhD, Phone: [phone] PERFORMED BY: [place] [address] PATHOLOGIST [employer]X SUPERVISOR YORDAN DEVINE M.D. Performed By: #### C K, BNP, DDIMER, HS TROP, CBC, PT, PTT #### [facility] [address] [place] [address] Reagin Ab [Presence] in Seru m by RPROrdered By: CHELY MCCALL on 05-09-2023 Reagin Ab RPR Ql (S) Non-Reactive Non Reactive [facility] Comment on above: Performed at: CB - [facility] [address] [id number] Director: Simón Silver PhD, Phone: [phone] Specific gravity Auto test s trip (U) [Rel density]Ordered By: CHELY MCCALL on 05-09-2023 Specific gravity (U) [Rel density] 1.022 1.001-1.030 [facility] Squamous epithelial cells de tection in urine sediment by light microscopyOrdered By: CHELY MCCALL on 05-09-2023 Epithelial cells.squamous LM Ql (Urine sed) 10-19 [HPF] 0-2 [facility] Urine bacteria detection by automated methodOrdered By: CHELY MCCALL on 05-09-2023 Bacteria Auto Ql (U) None seen None Seen [facility] Urine clarity by refractomet ry automatedOrdered By: CHELY MCCALL on 05-09-2023 Clarity Refractometry automated (U) Cloudy Clear [facility] Urine glucose measurement by automated test strip (mass/volume)Ordered By: CHELY MCCALL on 05-09-2023 Glucose Auto test strip (U) [Mass/Vol] Normal mg/dL Normal [facility] Urine hemoglobin detection b y automated test stripOrdered By: CHELY MCCALL on 05-09-2023 Hemoglobin Auto test strip Ql (U) Negative Negative [facility] Urine leukocyte esterase det ection by automated test stripOrdered By: CHELY MCCALL on 05-09-2023 Leukocyte esterase Auto test strip Ql (U) Negative Negative [facility] Urine pH measurement by auto mated test stripOrdered By: CHELY MCCALL on 05-09-2023 pH (U) 6.5 [pH] Normal 5.0-9.0 [facility] Comment on above: Order Comment: Name Collection Type:: Clean-Voided Midstream Performed By: #### C K, BNP, DDIMER, HS TROP, CBC, PT, PTT #### [facility] [address] Urine protein measurement by automated test strip (mass/volume)Ordered By: CHELY MCCALL on 05-09-2023 Protein (U) [Mass/Vol] 100 mg/dL High Negative [facility] Comment on above: Order Comment: Name Collection Type:: Clean-Voided Midstream Performed By: #### C K, BNP, DDIMER, HS TROP, CBC, PT, PTT #### [facility] [address] [place] [id number] [place] Urobilinogen Auto test strip (U) [Mass/Vol]Ordered By: CHELY MCCALL on 05-09-2023 Urobilinogen (U) [Mass/Vol] Normal mg/dL Normal [facility] Alanine aminotransferase [En zymatic activity/volume] in Serum or PlasmaOrdered By: Bharati Whiting on 12-11-2023 ALT [Catalytic activity/Vol] 9 U/L 7-52 [facility] Albumin [Mass/volume] in Ser um or Plasma by Bromocresol green (BCG) dye binding methoOrdered By: Bharati Whiting on 05-07-2023 Albumin BCG dye [Mass/Vol] 3.4 g/dL 3.5-5.7 [facility] Alkaline phosphatase [Enzyma tic activity/volume] in Serum or PlasmaOrdered By: Bharati Whiting on 05-07-2023 ALP [Catalytic activity/Vol] 184 U/L 34-104 [facility] Amphetamine Screen Ql (U)Ord ered By: Bharati Whiting on 05-07-2023 Amphetamines Ql (U) Negative Negative [facility] Aspartate aminotransferase [ Enzymatic activity/volume] in Serum or PlasmaOrdered By: Bharati Whiting on 05-07-2023 AST [Catalytic activity/Vol] 14 U/L 13-39 [facility] Automated erythrocytes count in urine sediment (number/area)Ordered By: Bharati Whiting on 05-07-2023 RBC Auto (Urine sed) [#/Area] 0-1 [HPF] 0-4 [facility] Automated leukocytes count i n urine sediment (number/area)Ordered By: Bharati Whiting on 05-07-2023 WBC Auto (Urine sed) [#/Area] 0-1 [HPF] 0-4 [facility] Barbiturates [Presence] in U rine by Screen methodOrdered By: Bharati Whiting on 05-07-2023 Barbiturates Screen Ql (U) Negative Negative [facility] Basophils Auto (Bld) [#/Vol] Ordered By: Bharati Whiting on 05-07-2023 Basophils (Bld) [#/Vol] 0.1 10*3/uL 0.0-0.2 [facility] Basophils/100 WBC Auto (Bld) Ordered By: Bharati Whiting on 05-07-2023 Basophils/100 WBC (Bld) 0.7 % . [facility] Benzodiazepines Screen Ql (U )Ordered By: Bharati Whiting on 05-07-2023 Benzodiazepines Ql (U) Negative [facility] Benzoyle[facility]gonine [Presence] i n Urine by Screen methodOrdered By: Bharatitoan Whiting on 05-07-2023 Benzoylecgonine Screen Ql (U) Negative Negative [facility] Bilirubin Test strip Ql (U)O rdered By: Bharati Henok on 05-07-2023 Bilirubin Ql (U) Negative Negative [facility] Bilirubin.total [Mass/volume ] in Serum or PlasmaOrdered By: Bharati Whiting on 05-07-2023 Bilirubin [Mass/Vol] 0.4 mg/dL 0.3-1.0 [facility] Calcium [Mass/volume] in Ser um or PlasmaOrdered By: Bharati Whiting on 05-07-2023 Calcium [Mass/Vol] 9.0 mg/dL 8.6-10.3 [facility] Carbon dioxide, total [Moles /volume] in Serum or PlasmaOrdered By: Bharati Whiting on 05-07-2023 CO2 [Moles/Vol] 20.6 mmol/L 21.0-31.0 [facility] Chloride [Moles/volume] in S nasra or PlasmaOrdered By: Bharati Whiting on 05-07-2023 Chloride [Moles/Vol] 107 mmol/L 98-107 [facility] Color Auto (U)Ordered By: Urbano chanell Henok on 05-07-2023 Color (U) Yellow Yellow [facility] Complete Blood Count Auto Di ffon 05-07-2023 Basophils (Bld) [#/Vol] 0.1 10*3/uL Normal 0.0-0.2 [facility] Comment on above: Result Comment: PERF ORMED BY: [place] [address] PATHOLOGIST [employer]X SUPERVISOR YORDAN DEVINE M.D. Performed By: #### C K, BNP, DDIMER, HS TROP, CBC, PT, PTT #### [address] Basophils/100 WBC (Bld) 0.7 % Normal . [facility] Comment on above: Performed By: #### C K, BNP, DDIMER, HS TROP, CBC, PT, PTT #### [address] Eosinophils (Bld) [#/Vol] 0.0 10*3/uL Normal 0.0-0.45 [facility] Comment on above: Performed By: #### C K, BNP, DDIMER, HS TROP, CBC, PT, PTT #### [address] Eosinophils/100 WBC (Bld) 0.3 % Normal . [facility] Comment on above: Performed By: #### C K, BNP, DDIMER, HS TROP, CBC, PT, PTT #### [address] Erythrocyte distribution width (RBC) [Ratio] 14.7 % Normal 11.9-15.3 [facility] Comment on above: Performed By: #### C K, BNP, DDIMER, HS TROP, CBC, PT, PTT #### [address] Hematocrit (Bld) [Volume fraction] 34.8 % Normal 34.0-46.4 [facility] Comment on above: Performed By: #### C K, BNP, DDIMER, HS TROP, CBC, PT, PTT #### [address] Hemoglobin (Bld) [Mass/Vol] 11.8 g/dL Normal 11.8-15.4 [facility] Comment on above: Performed By: #### C K, BNP, DDIMER, HS TROP, CBC, PT, PTT #### [address] Lymphocytes (Bld) [#/Vol] 1.7 10*3/uL Normal 1.00-4.8 [facility] Comment on above: Performed By: #### C K, BNP, DDIMER, HS TROP, CBC, PT, PTT #### [address] Lymphocytes/100 WBC (Bld) 22.7 % Normal . [facility] Comment on above: Performed By: #### C K, BNP, DDIMER, HS TROP, CBC, PT, PTT #### [address] MCH (RBC) [Entitic mass] 29.3 pg Normal 24.7-34.3 [facility] Comment on above: Performed By: #### C K, BNP, DDIMER, HS TROP, CBC, PT, PTT #### [address] MCV (RBC) [Entitic vol] 86.4 fL Normal 80-100 [facility] Comment on above: Performed By: #### C K, BNP, DDIMER, HS TROP, CBC, PT, PTT #### [address] Mean Corpuscular HGB Conc 33.9 g/dL Normal 32.0-35.0 [facility] Comment on above: Performed By: #### C K, BNP, DDIMER, HS TROP, CBC, PT, PTT #### [address] Monocytes (Bld) [#/Vol] 0.2 10*3/uL Normal 0.0-0.8 [facility] Comment on above: Performed By: #### C K, BNP, DDIMER, HS TROP, CBC, PT, PTT #### [address] Monocytes/100 WBC (Bld) 3.2 % Normal . [facility] Comment on above: Performed By: #### C K, BNP, DDIMER, HS TROP, CBC, PT, PTT #### [address] Neutrophils (Bld) [#/Vol] 5.6 10*3/uL Normal 1.8-7.7 [facility] Comment on above: Performed By: #### C K, BNP, DDIMER, HS TROP, CBC, PT, PTT #### [address] Neutrophils/100 WBC (Bld) 73.1 % Normal . [facility] Comment on above: Performed By: #### C K, BNP, DDIMER, HS TROP, CBC, PT, PTT #### [address] NRBC% 0.1 /100{WBC} Normal 0-0.5 [facility] Comment on above: Performed By: #### C K, BNP, DDIMER, HS TROP, CBC, PT, PTT #### [address] Platelet mean volume (Bld) [Entitic vol] 9.2 fL Normal 6.3-10.7 [facility] Comment on above: Performed By: #### C K, BNP, DDIMER, HS TROP, CBC, PT, PTT #### [address] Platelets (Bld) [#/Vol] 160 10*3/uL Normal 150-450 [facility] Comment on above: Performed By: #### C K, BNP, DDIMER, HS TROP, CBC, PT, PTT #### [address] RBC (Bld) [#/Vol] 4.03 10*6/uL Normal 3.60-5.00 [facility] Comment on above: Performed By: #### C K, BNP, DDIMER, HS TROP, CBC, PT, PTT #### [address] WBC (Bld) [#/Vol] 7.6 10*3/uL Normal 3.8-11.6 [facility] Comment on above: Performed By: #### C K, BNP, DDIMER, HS TROP, CBC, PT, PTT #### [address] Comprehensive Metabolic Pane emre 05-07-2023 Albumin [Mass/Vol] 3.4 g/dL Low 3.5-5.7 [facility] Comment on above: Performed By: #### C K, BNP, DDIMER, HS TROP, CBC, PT, PTT #### [facility] [address] Albumin/Globulin [Mass ratio] 1.0 {ratio} Normal [facility] Comment on above: Performed By: #### C K, BNP, DDIMER, HS TROP, CBC, PT, PTT #### [facility] [address] ALP [Catalytic activity/Vol] 184 U/L High 34-104 [facility] Comment on above: Performed By: #### C K, BNP, DDIMER, HS TROP, CBC, PT, PTT #### [facility] [address] ALT [Catalytic activity/Vol] 9 U/L Normal 7-52 [facility] Comment on above: Performed By: #### C K, BNP, DDIMER, HS TROP, CBC, PT, PTT #### [address] Anion gap [Moles/Vol] 13.1 mmol/L Normal 6.0-15.0 [facility] Comment on above: Performed By: #### C K, BNP, DDIMER, HS TROP, CBC, PT, PTT #### [address] AST [Catalytic activity/Vol] 14 U/L Normal 13-39 [facility] Comment on above: Performed By: #### C K, BNP, DDIMER, HS TROP, CBC, PT, PTT #### [address] Bilirubin [Mass/Vol] 0.4 mg/dL Normal 0.3-1.0 [facility] Comment on above: Performed By: #### C K, BNP, DDIMER, HS TROP, CBC, PT, PTT #### [address] Calcium [Mass/Vol] 9.0 mg/dL Normal 8.6-10.3 [facility] Comment on above: Performed By: #### C K, BNP, DDIMER, HS TROP, CBC, PT, PTT #### [facility] [address] Chloride [Moles/Vol] 107 mmol/L Normal 98-107 [facility] Comment on above: Performed By: #### C K, BNP, DDIMER, HS TROP, CBC, PT, PTT #### [facility] [address] CO2 [Moles/Vol] 20.6 mmol/L Low 21.0-31.0 [facility] Comment on above: Performed By: #### C K, BNP, DDIMER, HS TROP, CBC, PT, PTT #### [facility] [address] Creatinine [Mass/Vol] 0.51 mg/dL Low 0.60-1.20 [facility] Comment on above: Performed By: #### C K, BNP, DDIMER, HS TROP, CBC, PT, PTT #### [facility] [address] Creatinine Clr Calc Pharmacy 187.43 [facility] Comment on above: Performed By: #### C K, BNP, DDIMER, HS TROP, CBC, PT, PTT #### [address] GFR/1.73 sq M.predicted MDRD (S/P/Bld) [Vol rate/Area] mL/min/{1.73_m2} [facility] Comment on above: Performed By: #### C K, BNP, DDIMER, HS TROP, CBC, PT, PTT #### [facility] [address] Globulin (S) [Mass/Vol] 3.3 g/dL [facility] Comment on above: Performed By: #### C K, BNP, DDIMER, HS TROP, CBC, PT, PTT #### [facility] [address] Glucose [Mass/Vol] 77 mg/dL Normal 70-100 [facility] Comment on above: Result Comment: [facility] Glucose Reference Range is dependent on time and content of last meal. Glucose of more than 200 mg/dL in a nonstressed, ambulatory subject supports the diagnosis of Diabetes Mellitus. ADA recommended reference range Performed By: #### C K, BNP, DDIMER, HS TROP, CBC, PT, PTT #### [address] Potassium [Moles/Vol] 3.7 mmol/L Normal 3.5-5.1 [facility] Comment on above: Performed By: #### C K, BNP, DDIMER, HS TROP, CBC, PT, PTT #### [address] Protein [Mass/Vol] 6.7 g/dL Normal 6.4-8.9 [facility] Comment on above: Performed By: #### C K, BNP, DDIMER, HS TROP, CBC, PT, PTT #### [address] Sodium [Moles/Vol] 137 mmol/L Normal 136-145 [facility] Comment on above: Performed By: #### C K, BNP, DDIMER, HS TROP, CBC, PT, PTT #### [address] Urea nitrogen [Mass/Vol] 7 mg/dL Normal 7-25 [facility] Comment on above: Performed By: #### C K, BNP, DDIMER, HS TROP, CBC, PT, PTT #### [address] Creatinine [Mass/volume] in Serum or PlasmaOrdered By: Bharati Whiting on 05-07-2023 Creatinine [Mass/Vol] 0.51 mg/dL 0.60-1.20 [facility] Dipstick and Microscopicon 1 07-08-2022 Appearance (U) Clear Normal Clear [facility] Comment on above: Order Comment: Name Collection Type:: Voided Performed By: #### C K, BNP, DDIMER, HS TROP, CBC, PT, PTT #### [address] Bacteria,Urine None Seen Normal None Seen [facility] Comment on above: Order Comment: Name Collection Type:: Voided Performed By: #### C K, BNP, DDIMER, HS TROP, CBC, PT, PTT #### [facility] [address] [place] [address] Bilirubin,Urine Negative Normal Negative [facility] Comment on above: Order Comment: Name Collection Type:: Voided Performed By: #### C K, BNP, DDIMER, HS TROP, CBC, PT, PTT #### [address] Color (U) Yellow Normal Yellow [facility] Comment on above: Order Comment: Name Collection Type:: Voided Performed By: #### C K, BNP, DDIMER, HS TROP, CBC, PT, PTT #### [address] Glucose Ql (U) Normal Normal Normal [facility] Comment on above: Order Comment: Name Collection Type:: Voided Performed By: #### C K, BNP, DDIMER, HS TROP, CBC, PT, PTT #### [address] Hyaline Casts,Urine 0-8 Normal 0-8 [facility] Comment on above: Order Comment: Name Collection Type:: Voided Result Comment: PERF ORMED BY: [place] [address] PATHOLOGIST [employer] SUPERVISOR YORDAN DEVINE M.D. Performed By: #### C K, BNP, DDIMER, HS TROP, CBC, PT, PTT #### [address] Ketones Ql (U) Trace High Negative [facility] Comment on above: Order Comment: Name Collection Type:: Voided Performed By: #### C K, BNP, DDIMER, HS TROP, CBC, PT, PTT #### [address] Leukocyte esterase Test strip Ql (U) Negative Normal Negative [facility] Comment on above: Order Comment: Name Collection Type:: Voided Performed By: #### C K, BNP, DDIMER, HS TROP, CBC, PT, PTT #### [address] Nitrite,Urine Negative Normal Negative [facility] Comment on above: Order Comment: Name Collection Type:: Voided Performed By: #### C K, BNP, DDIMER, HS TROP, CBC, PT, PTT #### [address] Occult Blood,Urine Negative Normal Negative [facility] Comment on above: Order Comment: Name Collection Type:: Voided Result Comment: PERF ORMED BY: [place] [address] PATHOLOGIST [employer] SUPERVISOR YORDAN DEVINE M.D. Performed By: #### C K, BNP, DDIMER, HS TROP, CBC, PT, PTT #### [address] pH (U) 7.0 [pH] Normal 5.0-9.0 [facility] Comment on above: Order Comment: Name Collection Type:: Voided Performed By: #### C K, BNP, DDIMER, HS TROP, CBC, PT, PTT #### [address] Protein (U) [Mass/Vol] 100 mg/dL High Negative [facility] Comment on above: Order Comment: Name Collection Type:: Voided Performed By: #### C K, BNP, DDIMER, HS TROP, CBC, PT, PTT #### [place] [address] [place] RBC LM.HPF (Urine sed) [#/Area] 0 /[HPF] Normal 0-4 [facility] Comment on above: Order Comment: Name Collection Type:: Voided Performed By: #### C K, BNP, DDIMER, HS TROP, CBC, PT, PTT #### [address] Specificy [place],Urine 1.013 Normal 1.001-1.030 [facility] Comment on above: Order Comment: Name Collection Type:: Voided Performed By: #### C K, BNP, DDIMER, HS TROP, CBC, PT, PTT #### [facility] [address] [place] [address] Squamous Epithelial Cell,Urine 5-9 High 0-2 [facility] Comment on above: Order Comment: Name Collection Type:: Voided Performed By: #### C K, BNP, DDIMER, HS TROP, CBC, PT, PTT #### [facility] [address] Urobilinogen,Urine Normal Normal Normal [facility] Comment on above: Order Comment: Name Collection Type:: Voided Performed By: #### C K, BNP, DDIMER, HS TROP, CBC, PT, PTT #### [address] WBC LM.HPF (Urine sed) [#/Area] 0 /[HPF] Normal 0-4 [facility] Comment on above: Order Comment: Name Collection Type:: Voided Performed By: #### C K, BNP, DDIMER, HS TROP, CBC, PT, PTT #### [facility] [address] [place] [address] Eosinophils Auto (Bld) [#/Vo l]Ordered By: Bharati Whiting on 05-07-2023 Eosinophils (Bld) [#/Vol] 0.0 10*3/uL 0.0-0.45 [facility] Eosinophils/100 WBC Auto (Bl d)Ordered By: Bharati Whiting on 05-07-2023 Eosinophils/100 WBC (Bld) 0.3 % . [facility] Erythrocyte distribution wid th Auto (RBC) [Ratio]Ordered By: Bharati Whiting on 05-07-2023 Erythrocyte distribution width (RBC) [Ratio] 14.7 % 11.9-15.3 [facility] Globulin Calc (S) [Mass/Vol] Ordered By: Bharati Whiting on 05-07-2023 Globulin (S) [Mass/Vol] 3.3 g/dL [facility] Glucose [Mass/volume] in Ser um or PlasmaOrdered By: Bharati Whiting on 05-07-2023 Glucose [Mass/Vol] 77 mg/dL 70-100 [facility] Comment on above: ADA recommended refe rence rangeRandom Glucose Reference Range is dependent on time and content of last meal. Glucose of more than 200 mg/dL in a nonstressed, ambulatory subject supports the diagnosis of Diabetes Mellitus. Hematocrit Auto (Bld) [Volum e fraction]Ordered By: Bharati Whiting on 05-07-2023 Hematocrit (Bld) [Volume fraction] 34.8 % 34.0-46.4 [facility] Hemoglobin [Mass/volume] in BloodOrdered By: Bharati Whiting on 05-07-2023 Hemoglobin (Bld) [Mass/Vol] 11.8 g/dL 11.8-15.4 [facility] Ketones Auto test strip (U) [Mass/Vol]Ordered By: Bharati Whiting on 05-07-2023 Ketones (U) [Mass/Vol] Trace Negative [facility] - UrinalysisOrder ed By: Bharati Whiting on 05-07-2023 Hyaline casts LM Ql (Urine sed) 0-8 [LPF] 0-8 [facility] Leukocytes [#/volume] correc jeff for nucleated erythrocytes in Blood by Automated counOrdered By: Bharati Whiting on 05-07-2023 WBC corrected for nucl RBC Auto (Bld) [#/Vol] 7.6 10*3/uL 3.8-11.6 [facility] Lymphocytes Auto (Bld) [#/Vo l]Ordered By: Bharati Whiting on 05-07-2023 Lymphocytes (Bld) [#/Vol] 1.7 10*3/uL 1.00-4.8 [facility] Lymphocytes/100 WBC Auto (Bl d)Ordered By: Bharati Whiting on 05-07-2023 Lymphocytes/100 WBC (Bld) 22.7 % . [facility] MCH Auto (RBC) [Entitic mass ]Ordered By: Bharati Whiting on 05-07-2023 MCH (RBC) [Entitic mass] 29.3 pg 24.7-34.3 [facility] MCHC Auto (RBC) [Mass/Vol]Or dered By: Bharati Whiting on 05-07-2023 MCHC (RBC) [Mass/Vol] 33.9 g/dL 32.0-35.0 [facility] MCV Auto (RBC) [Entitic vol] Ordered By: Bharati Whiting on 05-07-2023 MCV (RBC) [Entitic vol] 86.4 fL 80-100 [facility] Monocytes Auto (Bld) [#/Vol] Ordered By: Bharati Whiting on 05-07-2023 Monocytes (Bld) [#/Vol] 0.2 10*3/uL 0.0-0.8 [facility] Monocytes/100 WBC Auto (Bld) Ordered By: Bharati Whiting on 05-07-2023 Monocytes/100 WBC (Bld) 3.2 % . [facility] Neutrophils Auto (Bld) [#/Vo l]Ordered By: Bharati Whiting on 05-07-2023 Neutrophils (Bld) [#/Vol] 5.6 10*3/uL 1.8-7.7 [facility] Neutrophils/100 WBC Auto (Bl d)Ordered By: Bharati Whiting on 05-07-2023 Neutrophils/100 WBC (Bld) 73.1 % . [facility] Nitrite Test strip Ql (U)Ord ered By: Bharati Whiting on 05-07-2023 Nitrite Ql (U) Negative Negative [facility] No Panel InformationOrdered By: Bharati Whiting on 05-07-2023 Estimated GFR (CKD-EPI) > 60.0 mL/Min [facility] Creatinine Clearance (Chem 187.43 [facility] Nucleated erythrocytes [Pres ence] in Blood by Automated countOrdered By: Bharati Whiting on 05-07-2023 Nucleated RBC Auto Ql (Bld) 0.1 /100{WBC} 0-0.5 [facility] OB Urine Drug Screen (NO THC )on 05-07-2023 Amphetamine Screen,Urine Negative Normal Negative [facility] Comment on above: Performed By: #### C K, BNP, DDIMER, HS TROP, CBC, PT, PTT #### [facility] [address] Barbiturate Screen,Urine Negative Normal Negative [facility] Comment on above: Performed By: #### C K, BNP, DDIMER, HS TROP, CBC, PT, PTT #### [facility] [address] Benzodiazepines Screen,Urine Negative Normal Negative [facility] Comment on above: Performed By: #### C K, BNP, DDIMER, HS TROP, CBC, PT, PTT #### [facility] [address] Cocaine Screen,Urine Negative Normal Negative [facility] Comment on above: Performed By: #### C K, BNP, DDIMER, HS TROP, CBC, PT, PTT #### [facility] [address] Opiate Screen,Urine Negative Normal Negative [facility] Comment on above: Performed By: #### C K, BNP, DDIMER, HS TROP, CBC, PT, PTT #### [facility] [address] Phencyclidine Screen, Urine Negative Normal Negative [facility] Comment on above: Result Comment: Thes e are unconfirmed results and should not be used for legal purposes. Drug Cut-Off Concentration: AMPH 1000 ng/mL TOMMY 200 ng/mL BROOKLYNN 200 ng/mL COCM 300 ng/mL OP 300 ng/mL PCP 25 ng/mL PERFORMED BY: [place] [address] PATHOLOGIST [employer] SUPERVISOR YORDAN DEVINE M.D. Performed By: #### C K, BNP, DDIMER, HS TROP, CBC, PT, PTT #### [facility] [address] Opiates [Presence] in Urine by Screen methodOrdered By: Bharati Whiting on 05-07-2023 Opiates Screen Ql (U) Negative Negative [facility] Phencyclidine Screen Ql (U)O rdered By: Bharati Whiting on 05-07-2023 Phencyclidine Ql (U) Negative Negative [facility] Comment on above: These are unconfirme d results and should not be used for legal purposes. Drug Cut-Off Concentration: AMPH 1000 ng/mL TOMMY 200 ng/mL BROOKLYNN 200 ng/mL COCM 300 ng/mL OP 300 ng/mL PCP 25 ng/mL Platelet mean volume Auto (B ld) [Entitic vol]Ordered By: Bharati Whiting on 05-07-2023 Platelet mean volume (Bld) [Entitic vol] 9.2 fL 6.3-10.7 [facility] Platelets Auto (Bld) [#/Vol] Ordered By: Bharati Whiting on 05-07-2023 Platelets (Bld) [#/Vol] 160 10*3/uL 150-450 [facility] Potassium [Moles/volume] in Serum or PlasmaOrdered By: Bharati Whiting on 05-07-2023 Potassium [Moles/Vol] 3.7 mmol/L 3.5-5.1 [facility] Protein Auto test strip (U) [Mass/Vol]Ordered By: Bharati Whiting on 05-07-2023 Protein (U) [Mass/Vol] 100 mg/dL Negative [facility] Protein [Mass/volume] in Ser um or PlasmaOrdered By: Bharati Whiting on 05-07-2023 Protein [Mass/Vol] 6.7 g/dL 6.4-8.9 [facility] RBC Auto (Bld) [#/Vol]Ordere d By: Bharati Whiting on 05-07-2023 RBC (Bld) [#/Vol] 4.03 10*6/uL 3.60-5.00 [facility] RPR w/rfx to Quant TP Abson 05-07-2023 RPR, Rfx Quant RPR Non-Reactive Normal Non Reactive [facility] Comment on above: Result Comment: Perf ormed at: CB - [facility] [address] [id number] Hog Pusher: Simón Silver PhD, Phone: [phone] PERFORMED BY: [address] [address] PATHOLOGIST [employer] SUPERVISOR YORDAN DEVINE M.D. Performed By: #### C K, BNP, DDIMER, HS TROP, CBC, PT, PTT #### [facility] [address] [place] [address] [place] Reagin Ab [Presence] in Seru m by RPROrdered By: Bharati Whiting on 05-07-2023 Reagin Ab RPR Ql (S) Non-Reactive Non Reactive [facility] Comment on above: Performed at: - [place] [id number] Director: Simón Silver PhD, Phone: [phone] Serum or plasma albumin/glob ulin mass ratioOrdered By: Bharati Whiting on 05-07-2023 Albumin/Globulin [Mass ratio] 1.0 {ratio} [facility] Serum or plasma anion gap de terminationOrdered By: Bharati Whiting on 05-07-2023 Anion gap [Moles/Vol] 13.1 mmol/L 6.0-15.0 [facility] Sodium [Moles/volume] in Ser um or PlasmaOrdered By: Bharati Whiting on 05-07-2023 Sodium [Moles/Vol] 137 mmol/L 136-145 [facility] Specific gravity Auto test s trip (U) [Rel density]Ordered By: Bharati Whiting on 05-07-2023 Specific gravity (U) [Rel density] 1.013 1.001-1.030 [facility] Squamous epithelial cells de tection in urine sediment by light microscopyOrdered By: Bharati Whiting on 05-07-2023 Epithelial cells.squamous LM Ql (Urine sed) 5-9 [HPF] 0-2 [facility] Urate [Mass/volume] in Serum or PlasmaOrdered By: Bharati Whiting on 05-07-2023 Urate [Mass/Vol] 4.9 mg/dL 2.3-6.6 [facility] Urea nitrogen [Mass/volume] in Serum or PlasmaOrdered By: Bharati Whiting on 05-07-2023 Urea nitrogen [Mass/Vol] 7 mg/dL 7-25 [facility] Uric Acidon 05-07-2023 Urate [Mass/Vol] 4.9 mg/dL Normal 2.3-6.6 [facility] Comment on above: Result Comment: PERF ORMED BY: [facility] [address] [place] [address] PATHOLOGIST [employer] SUPERVISOR YORDAN DEVINE M.D. Performed By: #### C K, BNP, DDIMER, HS TROP, CBC, PT, PTT #### [facility] [address] Urine bacteria detection by automated methodOrdered By: Bharati Whiting on 05-07-2023 Bacteria Auto Ql (U) None seen None Seen [facility] Urine clarity by refractomet ry automatedOrdered By: Bharati Whiting on 05-07-2023 Clarity Refractometry automated (U) Clear Clear [facility] Urine glucose measurement by automated test strip (mass/volume)Ordered By: Bharati Whiting on 05-07-2023 Glucose Auto test strip (U) [Mass/Vol] Normal mg/dL Normal [facility] Urine hemoglobin detection b y automated test stripOrdered By: Bharati Whiting on 05-07-2023 Hemoglobin Auto test strip Ql (U) Negative Negative [facility] Urine leukocyte esterase det ection by automated test stripOrdered By: Bharati Whiting on 05-07-2023 Leukocyte esterase Auto test strip Ql (U) Negative Negative [facility] Urobilinogen Auto test strip (U) [Mass/Vol]Ordered By: Bharati Whiting on 05-07-2023 Urobilinogen (U) [Mass/Vol] Normal mg/dL Normal [facility] WBC Auto (Bld) [#/Vol]Ordere d By: Bharati Whiting on 05-07-2023 WBC (Bld) [#/Vol] 7.6 10*3/uL 3.8-11.6 [facility] pH Auto test strip (U)Ordere d By: Bharati Whiting on 05-07-2023 pH (U) 7.0 [pH] 5.0-9.0 [facility] Group B Streptococcus cultur eOrdered By: CHELY MCCALL on 04-17-2023 S. agalactiae Org specific cx Ql (Unsp spec) [facility] Strep B Cultureon 04-17-2023 Strep B Culture Strep B Only Cult No Group B Beta Streptococcus Isolated 3 Days PERFORMED BY: [place] [address] PATHOLOGIST [employer] SUPERVISOR YORDAN DEVINE M.D. Normal [facility] Comment on above: Performed By: #### C K, BNP, DDIMER, HS TROP, CBC, PT, PTT #### [facility] [address] [place] [address] CBC AUTO DIFFon 08-02-2019 Basophils (Bld) [#/Vol] 0.0 103/ul Normal 0.0-0.1 [facility] Comment on above: Performed By: #### C BC #### [facility] [address] [place] [address] Angelica Anabela Basophils/100 WBC (Bld) 0.4 % Normal 0.2-2.0 [facility] Comment on above: Performed By: #### C BC #### [facility] [address] [place] [address] Angelica Anabela Eosinophils (Bld) [#/Vol] 0.0 103/ul Normal 0.0-0.7 [facility] Comment on above: Performed By: #### C BC #### [facility] [address] [place] [address] Angelica Anabela Eosinophils/100 WBC (Bld) 0.5 % Critically low 0.9-7.0 [facility] Comment on above: Performed By: #### C BC #### [facility] [address] [place] [address] Angelica Anabela Erythrocyte distribution width (RBC) [Ratio] 12.5 % Normal 11.0-15.0 [facility] Comment on above: Performed By: #### C BC #### [facility] [address] [place] [address] Angelica Anabela Hematocrit (Bld) [Volume fraction] 43.1 % Normal 36.0-48.0 [facility] Comment on above: Performed By: #### C BC #### [facility] [address] [place] [id number] Angelica Anabela Hemoglobin (Bld) [Mass/Vol] 14.5 g/dL Normal 12.0-16.0 [facility] Comment on above: Performed By: #### C BC #### [facility] [address] [place] [id number] Angelica Anabela IG # 0.02 10e3/ul Normal 0.00-0.03 [facility] Comment on above: Performed By: #### C BC #### [facility] [address] [place], [place] [id number] Angelica Anabela IG % 0.3 % Normal 0.0-0.5 [facility] Comment on above: Performed By: #### C BC #### [facility] [address] [place], [place] [phone] Angelica Anabela Lymphocytes (Bld) [#/Vol] 2.1 103/ul Normal 1.2-3.8 [facility] Comment on above: Performed By: #### C BC #### [facility] [address] [place], [place] [phone] Angelica Anabela Lymphocytes/100 WBC (Bld) 27.8 % Normal 20.5-60.0 [facility] Comment on above: Performed By: #### C BC #### [facility] [address] [place], [place] [phone] Angelica Anabela MANUAL DIFF REQ NO Normal [facility] Comment on above: Performed By: #### C BC #### [facility] [address] [place], [place] [phone] Angelica Anabela MCH (RBC) [Entitic mass] 31.0 pg Normal 26.7-34.0 [facility] Comment on above: Performed By: #### C BC #### [facility] [address] [place], [place] [phone] Angelica Anabela MCHC (RBC) [Mass/Vol] 33.6 g/dL Normal 29.9-35.2 [facility] Comment on above: Performed By: #### C BC #### [facility] [address] [place], [place] [phone] Angelica Anabela MCV (RBC) [Entitic vol] 92.3 fL Normal 81.0-99.0 [facility] Comment on above: Performed By: #### C BC #### [facility] [address] [place] [id number] Angelica Anabela Monocytes (Bld) [#/Vol] 0.4 103/ul Normal 0.3-0.8 [facility] Comment on above: Performed By: #### C BC #### [facility] [address] [place] [address] Angelica Anabela Monocytes/100 WBC (Bld) 5.5 % Normal 1.7-12.0 [facility] Comment on above: Performed By: #### C BC #### [facility] [address] [place] [address] Angelica Anabela Neutrophils (Bld) [#/Vol] 4.9 103/ul Normal 1.4-6.5 [facility] Comment on above: Performed By: #### C BC #### [facility] [address] [place] [address] Angelica Anabela Neutrophils/100 WBC (Bld) 65.5 % Normal 43.0-75.0 [facility] Comment on above: Performed By: #### C BC #### [facility] [address] [place], [place] [phone] Angelica Anabela Platelet mean volume (Bld) [Entitic vol] 8.9 fL Critically low 9.5-13.5 [facility] Comment on above: Performed By: #### C BC #### [facility] [address] [place], [place] [phone] Angelica Anabela Platelets (Bld) [#/Vol] 212 103/ul Normal 150-450 [facility] Comment on above: Performed By: #### C BC #### [facility] [address] [place], [place] [phone] Angelica Anabela RBC (Bld) [#/Vol] 4.67 106/ul Normal 4.20-5.40 [facility] Comment on above: Performed By: #### C BC #### [facility] [address] [place] [address] Angelica Anabela WBC (Bld) [#/Vol] 7.4 103/ul Normal 4.0-11.0 [facility] Comment on above: Performed By: #### C BC #### [facility] [address] [place] [id number] Angelicabraden Peñaloza FREE THYROXINE INDEX T7on FTI 3.36 Normal [facility] Comment on above: Performed By: #### C MP, T7, TSH, LIPID #### [facility] [address] [place] [address] Angelica Anabela T3U 30.0 % Normal 23.5-40.5 [facility] Comment on above: Performed By: #### C MP, T7, TSH, LIPID #### [facility] [address] [place] [address] Angelica Anabela T4 [Mass/Vol] 11.20 ug/dL Critically high 5.53-11.00 [facility] Comment on above: Performed By: #### C MP, T7, TSH, LIPID #### [facility] [address] [place] [address] Angelica Anabela GLYCOHEMOGLOBIN A1Con 2019 Glucose [Mass/Vol] 94 mg/dL Normal [facility] Comment on above: Performed By: #### A 1C #### [facility] [address] [place], [place] [phone] Angelica Anabela HbA1c (Bld) [Mass fraction] 4.9 % Normal <=6.0 [facility] Comment on above: Performed By: #### A 1C #### [facility] [address] [place] [address] Angelica Anabela LIPID PROFILEon 08-02-2019 CHOL-HDL RATIO NORM SEE BELOW Normal [facility] Comment on above: Result Comment: 3.3 - 4.4 LOW RISK 4.4 - 7.1 AVERAGE RISK 7.1 - 11.0 MODERATE RISK >11.0 HIGH RISK Performed By: #### C MP, T7, TSH, LIPID #### [facility] [address] [place], [place] [address] Angelica Anabela Cholesterol [Mass/Vol] 263 mg/dL Critically high <=200 [facility] Comment on above: Performed By: #### C MP, T7, TSH, LIPID #### [facility] [address] [place], [place] [address] Angelica Anabela Cholesterol in HDL [Mass/Vol] 72 mg/dL Normal [facility] Comment on above: Performed By: #### C MP, T7, TSH, LIPID #### [facility] [address] [place] [phone] Angelica Anabela Cholesterol in HDL [Mass/Vol] > or = 60 mg/dl - LOW CARDIOVASCULAR RISK <40 mg/dl - HIGH CARDIOVASCULAR RISK Normal [facility] Comment on above: Performed By: #### C MP, T7, TSH, LIPID #### [facility] [address] [place] [phone] Angelica Anabela Cholesterol in LDL [Mass/Vol] SEE BELOW Normal [facility] Comment on above: Result Comment: <100 mg/dl OPTIMAL 100 - 129 mg/dl NEAR OR ABOVE OPTIMAL 130 - 159 mg/dl BORDERLINE HIGH 160 - 189 mg/dl HIGH >190 mg/dl VERY HIGH Performed By: #### C MP, T7, TSH, LIPID #### [facility] [address] [place] [phone] Angelica Anabela Cholesterol in LDL [Mass/Vol] 141.8 mg/dL Normal [facility] Comment on above: Performed By: #### C MP, T7, TSH, LIPID #### [facility] [address] [place], [place] [phone] Angelica Anabela Cholesterol.total/Chol esterol in HDL [Mass ratio] 3.7 {ratio} Normal [facility] Comment on above: Performed By: #### C MP, T7, TSH, LIPID #### [facility] [address] [place] [phone] Angelica Anabela Triglyceride [Mass/Vol] 246 mg/dL Critically high <=150 [facility] Comment on above: Performed By: #### C MP, T7, TSH, LIPID #### [facility] [address] [place] [phone] Angelica Anabela VLDL CALC 49.2 mg/dL Normal [facility] Comment on above: Performed By: #### C MP, T7, TSH, LIPID #### [facility] [address] [place] [phone] Angelica Chuen PROF 14(COMP METB)on 020 Albumin [Mass/Vol] 4.0 g/dL Normal 3.5-5.0 [facility] Comment on above: Performed By: #### C MP, T7, TSH, LIPID #### [facility] [address] [place] [address] Angelica Peñaloza Albumin/Globulin [Mass ratio] 1.0 {ratio} Normal [facility] Comment on above: Performed By: #### C MP, T7, TSH, LIPID #### [facility] [address] [place] [address] Angelica Anabela ALP [Catalytic activity/Vol] 59 U/L Normal 38-126 [facility] Comment on above: Performed By: #### C MP, T7, TSH, LIPID #### [facility] [address] [place] [address] Angelica Anabela ALT [Catalytic activity/Vol] 32 U/L Normal 9-52 [facility] Comment on above: Performed By: #### C MP, T7, TSH, LIPID #### [facility] [address] [place], [place] [phone] Angelica Peñaloza Anion gap [Moles/Vol] 15.2 mmol/L Normal [facility] Comment on above: Performed By: #### C MP, T7, TSH, LIPID #### [facility] [address] [place] [address] Angelica Anabela AST [Catalytic activity/Vol] 18 U/L Normal 14-36 [facility] Comment on above: Performed By: #### C MP, T7, TSH, LIPID #### [facility] [address] [place] [phone] Angelica Anabela Bilirubin Ql (U) 0.4 mg/dL Normal 0.2-1.3 [facility] Comment on above: Performed By: #### C MP, T7, TSH, LIPID #### [facility] [address] [place] [address] Angelica Anabela Calcium [Mass/Vol] 9.5 mg/dL Normal 8.4-10.2 [facility] Comment on above: Performed By: #### C MP, T7, TSH, LIPID #### [facility] [address] [place] [address] Angelica Anabela Chloride [Moles/Vol] 103 mmol/L Normal 98-107 [facility] Comment on above: Performed By: #### C MP, T7, TSH, LIPID #### [facility] [address] [place] [address] Angelica Anabela CO2 [Moles/Vol] 26.9 mmol/L Normal 22.0-30.0 [facility] Comment on above: Performed By: #### C MP, T7, TSH, LIPID #### [facility] [address] [place] [address] Angelica Anabela Creatinine [Mass/Vol] 0.87 mg/dL Normal 0.52-1.04 [facility] Comment on above: Performed By: #### C MP, T7, TSH, LIPID #### [facility] [address] [place], [place] [phone] Angelica Anabela EGFR-AF LAO >60 Normal >=60 [facility] Comment on above: Performed By: #### C MP, T7, TSH, LIPID #### [facility] [address] [place] [address] Angelica Anabela EGFR-NON AF LAO >60 Normal >=60 [facility] Comment on above: Performed By: #### C MP, T7, TSH, LIPID #### [facility] [address] [place] [address] Angelica Anabela Globulin (S) [Mass/Vol] 4.0 g/dL Normal [facility] Comment on above: Performed By: #### C MP, T7, TSH, LIPID #### [facility] [address] [place] [address] Angelica Anabela Glucose [Mass/Vol] 85 mg/dL Normal 74-106 [facility] Comment on above: Performed By: #### C MP, T7, TSH, LIPID #### [facility] [address] [place] [address] Angelica Anabela Potassium [Moles/Vol] 4.1 mmol/L Normal 3.4-5.0 [facility] Comment on above: Performed By: #### C MP, T7, TSH, LIPID #### [facility] [address] [place] [address] Angelica Anabela Protein [Mass/Vol] 8.0 g/dL Normal 6.1-8.2 [facility] Comment on above: Performed By: #### C MP, T7, TSH, LIPID #### [facility] [address] [place] [address] Angelica Anabela Sodium [Moles/Vol] 141 mmol/L Normal 137-145 [facility] Comment on above: Performed By: #### C MP, T7, TSH, LIPID #### [facility] [address] [place] [address] Angelica Anabela Urea nitrogen [Mass/Vol] 11.0 mg/dL Normal 7.0-17.0 [facility] Comment on above: Performed By: #### C MP, T7, TSH, LIPID #### [facility] [address] [place] [address] Angelica Anabela Urea nitrogen/Creatinine [Mass ratio] 12.6 mg/mg Normal [facility] Comment on above: Performed By: #### C MP, T7, TSH, LIPID #### [facility] [address] [place] [address] Angelica Anabela TSHon 08-02-2019 TSH Qn SEE BELOW Normal [facility] Comment on above: Result Comment: <0.3 4 UIU/ml HYPERTHYROID 0.34-5.60 UIU/ml EUTHYROID >5.60 UIU/ml HYPOTHYROID Performed By: #### C MP, T7, TSH, LIPID #### [facility] [address] [place] [address] Angelica Anabela TSH Qn 1.741 uIU/mL Normal 0.470-4.680 [facility] Comment on above: Performed By: #### C MP, T7, TSH, LIPID #### [facility] [address] [address] Angelica Peñaloza Vital Signs Date Time Vital Sign Value Performing Clinician Juanis page 08-28-2023 08:23-0400 Blood Pressure Location Raffi AZULL [facility] 08-28-2023 08:23-0400 Diastolic blood pressure 86 mm[Hg] Raffi AZULL [facility] 08-28-2023 08:23-0400 Heart rate 87 /min Raffi AZULL [facility] 08-28-2023 08:23-0400 Respiratory rate 16 /min Raffi AZULL [facility] 08-28-2023 08:23-0400 Systolic blood pressure 125 mm[Hg] Raffi AZULL [facility] 06-27-2023 03:48-0500 Diastolic blood pressure 65 mm[Hg] MD Chi Clay Work Phone: [facility] 06-27-2023 03:48-0500 Heart rate 83 /min MD Chi Clay Work Phone: [facility] 06-27-2023 03:48-0500 Respiratory rate 18 /min MD Chi Clay Work Phone: [facility] 06-27-2023 03:48-0500 SaO2% (BldA) [Mass fraction] 96 % MD Chi Clay Work Phone: [facility] 06-27-2023 03:48-0500 Systolic blood pressure 118 mm[Hg] MD Chi Clay Work Phone: [facility] 06-27-2023 01:13-0500 Body height 154.94 cm MD Chi Clay Work Phone: [facility] 06-27-2023 01:13-0500 Body temperature 98.1 [degF] MD Chi Clay Work Phone: [facility] 06-27-2023 01:13-0500 Body weight 106.7 kg MD Chi Clay Work Phone: [facility] 05-11-2023 09:00-0500 Body temperature 98.3 [degF] MD Chi Clay Work Phone: [facility] 05-11-2023 09:00-0500 Diastolic blood pressure 87 mm[Hg] MD Chi Clay Work Phone: [facility] 05-11-2023 09:00-0500 Heart rate 93 /min MD Chi Clay Work Phone: [facility] 05-11-2023 09:00-0500 Respiratory rate 16 /min MD Chi Clay Work Phone: [facility] 05-11-2023 09:00-0500 SaO2% (BldA) [Mass fraction] 97 % MD Chi Clay Work Phone: [facility] 05-11-2023 09:00-0500 Systolic blood pressure 134 mm[Hg] MD Chi Clay Work Phone: [facility] 05-09-2023 16:47-0500 Body height 154.94 cm MD Chi Clay Work Phone: [facility] 05-09-2023 16:47-0500 Body weight 117.93 kg MD Chi Clay Work Phone: [facility] 05-07-2023 14:39-0500 Body temperature 98.1 [degF] MD Chi Clay Work Phone: [facility] 05-07-2023 14:39-0500 Diastolic blood pressure 79 mm[Hg] MD Chi Clay Work Phone: [facility] 05-07-2023 14:39-0500 Heart rate 83 /min MD Chi Clay Work Phone: [facility] 05-07-2023 14:39-0500 Respiratory rate 16 /min MD Chi Clay Work Phone: [facility] 05-07-2023 14:39-0500 Systolic blood pressure 138 mm[Hg] MD Chi Clay Work Phone: [facility] 05-07-2023 10:42-0500 Body height 154.94 cm MD Chi Clay Work Phone: [facility] 05-07-2023 10:42-0500 Body weight 117.48 kg MD Chi Clay Work Phone: [facility] 05-07-2023 10:30-0500 SaO2% (BldA) [Mass fraction] 97 % MD Chi Clay Work Phone: [facility] Encounters Encounter Date Encounter Type Care Provider Facility Start: 08-28-2023 End: 08-29-2023 ambulatory Raffi MUNOZ [facility]: [facility] Start: 08-28-2023 End: 08-28-2023 Patient encounter procedure Raffi MUNOZ [facility] Start: 08-03-2023 ambulatory Raffi MUNOZ Facility:[facility] Start: 06-27-2023 End: 06-27-2023 Emergency department patient visit Jonatan Marie Jr Facility:[facility] Start: 06-27-2023 End: 06-27-2023 Emergency department patient visit MD Chi Clay Work Phone: [facility]-Emergency Room Work Phone: Start: 06-21-2023 End: 06-21-2023 ambulatory CHELY MCCALL Not Available Start: 05-09-2023 End: 05-11-2023 Evaluation and management of inpatient Chely Mccall Facility:[facility] Start: 05-09-2023 End: 05-11-2023 Evaluation and management of inpatient MD Chi Clay Work Phone: [facility] [place] Work Phone: Start: 05-08-2023 End: 05-08-2023 ambulatory CHELY J NATAPRAWIRA Not Available Start: 05-07-2023 End: 05-07-2023 ambulatory Bharati Clarerosamaria Facility:[facility] Start: 05-07-2023 End: 05-07-2023 ambulatory MD Chi Clay Work Phone: [facility] Work Phone: Start: 05-07-2023 End: 05-07-2023 Patient encounter procedure MD Cih Clay Work Phone: [facility] Labor - O/P Start: 05-01-2023 End: 05-01-2023 ambulatory CHELY J NATAPRAWIRA Not Available Start: 04-24-2023 End: 04-24-2023 ambulatory CHELY J NATAPRAWIRA Not Available Start: 04-17-2023 End: 04-17-2023 ambulatory CHELY J NATAPRAWIRA Not Available Start: 04-17-2023 End: 04-17-2023 ambulatory DO Chely Nataprawira Work Phone: [facility] Work Phone: Start: 04-17-2023 End: 04-17-2023 Departed Referred DO Chely Nataprawira Work Phone: [facility] [place] Work Phone: Start: 04-10-2023 End: 04-10-2023 ambulatory CHELY J NATAPRAWIRA Not Available Start: 08-04-2019 Encounter for genera l adult medical examination without abnormal findings [facility] Start: 08-02-2019 End: 08-03-2019 Patient encounter procedure [facility] Facility:[facility] Encounter for genera l adult medical examination without abnormal findings [facility] Procedures Date Procedure Procedure Detail Performing Clinician Start: 04-17-2023 Streptococcus agalactiae culture MD Chi Clay Work Phone: section Raffi Warner H/O: section Status post C-secti on DO Chely Nataprawira Work Phone: Plan of Treatment Date Care Activity Detail Author Start: 06-27-2023 Computed tomography of abdomen and pelvis with contrast CT abdomen pelvis w con [facility] Start: 06-27-2023 CT Abdomen and Pelvis W contrast IV [facility] Start: 06-27-2023 Plain chest X-ray XR chest 2V* [facility] Start: 06-27-2023 XR Chest 2 Views [facility] Start: 05-11-2023 [facility] Start: 05-10-2023 Hospital admission [facility] Start: 05-07-2023 [facility] Start: 05-07-2023 [facility] Start: 05-07-2023 Hospital admission [facility] Start: 04-17-2023 Group B Streptococcus Culture Group B Streptococcus Culture [facility] Patient Education [facility] Work Phone: Patient referral [facility] Work Phone: Reagin Ab [Presence] in Serum by RPR [facility] Streptococcus agalac tiae [Presence] in Unspecified specimen by Organism specific culture [facility] Immunizations Immunization Date Immunization Notes Care Provider Deshaun kiran 05-11-2023 influenza, injectabl e, quadrivalent, preservative free MD Chi Clay Work Phone: [facility] 05-10-2023 tetanus toxoid, reduced diphtheria toxoid, and acellular pertussis vaccine, adsorbed MD Chi Clay Work Phone: [facility] 06-18-2021 influenza, injectabl e, quadrivalent, preservative free DO Chely Nataprawira Work Phone: [facility] 06-18-2021 tetanus toxoid, reduced diphtheria toxoid, and acellular pertussis vaccine, adsorbed DO Chely Nataprawira Work Phone: [facility] 02-23-2021 SARS-CoV-2 (COVID-19 ) mRNA BNT-162b2 vax Raffi AZULL [facility] 02-02-2021 SARS-CoV-2 (COVID-19 ) mRNA BNT-162b2 brandy MUONZ [facility] Payers Date Payer Category Payer Self-pay [id number] 1989 Unknown [id number] 1989 Unknown [id number] 1989 Unknown [id number] [id number] 1989 Unknown [id number] 1989 Unknown [id number] 2.16.840.1.760240.3.579.2.1258 1989 Unknown [id number] 2.16.840.1.462258.3.579.2.1258 1989 Unknown [id number] [id number] 1989 Unknown [id number] [id number] 1959 Unknown [id number] Private Health Insurance [facility] [id number] Unknown [id number] Unknown [id number] [id number] Unknown [id number] [id number] Unknown [id number] [id number] Social History Date Type Detail Facility Start: 06-16-2021 End: 08-28-2023 Tobacco smoking status NHIS Never smoked tobacco (finding) [facility] Start: 1990 Sex Assigned At Female [facility] Start: 06-27-2023 [facility] Tobacco smoking status Never [facility] Sex Assigned At Female [facility] Goals Date Patient Goal Desired Activity /State Functional Status Date Assessment Result Facility 08-28-2023 Functional Status N/A [facility] 05-11-2023 Functional status Patient at Baseline [facility] Work Phone: Mental Status Date Assessment Result Facility 05-11-2023 Cognitive function Cognitive Sta tus Patient at Baseline [facility] Work Phone: Clinical Note 09-01-2023 Note Date & Type Note Facility 09-01-2023 Note Chief Complaint consultation for cholelithiasis HPI Staff 32 year old female presents on consultation from Dr. Clay for cholelithiasis. Presented to [facility] ED 06/27/23 with complaint of chest pain. CT ABD/pelvis with cholelithiasis. PCP visit 06/28 patient was prescribed Protonix 40mg daily; patient reports this was not effective so stopped medication. [facility] US completed 08/01 with cholelithiasis. Patient states since May, she has experienced approximately 15 episodes of lower chest/upper abdominal pain. Reports she does experience back pain as well. She is unable to describe pain. Reports pain will last from 30 minutes-6 hours. Reports pain is alleviated with use of Motrin and Percocet. Reports heating pad is helpful at times. Reports she will experience nausea and occasional vomiting during episodes of pain. Patient does attempt to eat low fat diet. History of Present Illness 32 yo female with h/o hypertriglyceridemia, obesity, referred for symptomatic cholelithiasis; patient is 4 months post ; seen in [facility] ED end of May for chest pain, abd ct scan with cholelithiasis, enhancement of gallbladder wall, nondistended gallbladder; placed on Protonix; RUQ US early July done at [facility], with multiple small stones, no wall thickening or ductal dilation; abd operations significant for x 2; patient reports intermittent upper abd pain, occasional nausea, last from 30 minutes to 6 hours; no bowel changes, no fevers, no h/o jaundice or pancreatitis; currently on low fat diet; no tobacco use. Review of Systems PHQ Score Initial Depression Screen Score: 0 SCORE ROS - Provider Constitutional: no fever, no sweats, no weight loss. Eyes: no glasses, no blurred vision, no visual loss. ENMT: no dentures, no hoarseness, no swallowing difficulties, no hearing loss, no ear infection(s), no nose bleeds. Cardiovascular: normal blood pressure, no chest pain, regular heartbeat, no heart murmur. Respiratory: no shortness of breath, no cough, no asthma, no wheezing. Gastrointestinal: yes nausea, no vomiting, no diarrhea, no constipation, no blood in stool, no change in bowel habits, yes abdominal pain, no hepatitis. Genitourinary: no kidney stones, no urine infection, no dysuria. Musculoskeletal: no pain, no weakness. Skin: no changing moles, no rash, no skin lumps. Neurologic: no seizures, no epilepsy, no headache. Psychiatric: no emotional or psychiatric problem. Heme/Lymph: no bleeding problems, no anemia, no blood clots, no transfusions. Allergy/Immunologic: no swollen lymph nodes/glands, no IV drug abuse. Other: Additional ROS info: Except as noted in the above Review of Systems and in the History of Present Illness, all other systems have been reviewed and are negative or noncontributory. Physical Exam Vitals & Measurements HR: 87(Peripheral) RR: 16 BP: 125/86 HT: 61 in HT: 154.94 cm WT: 101 kg WT: 222.2 lb BMI: 42.07 HEENT: normal conjunctiva, sclera clear, no scleral icterus, EOM intact, PERRLA, oral mucosa moist without lesions. Neck: trachea midline, no mass, symmetric, no thyromegaly or nodules, no adenopathy Respiratory: lungs CTA, respirations non labored. Cardiovascular: regular rate and rhythm, no murmur, no pedal edema or varicosities. Gastrointestinal: soft, non distended, no tenderness, no masses, no palpable hernias, diastasis recti no, no hepatosplenomegaly; normal bs Lymphatic: no cervical adenopathy, no supraclavicular adenopathy. Musculoskeletal: normal gait, digits and nails without infection, nodes, cyanosis, clubbing. Skin: no rashes, no lesions, no ulcers, no subcutaneous nodules, induration. Psychiatric/Neuro: oriented to time, place, person, judgement normal, affect appropriate for age, insight intact, no focal deficits. Tests: labs reviewed, x-rays reviewed, review of old records completed , Discussed surgical options, risks, and possible complications with patient. Assessment/Plan 1. Symptomatic cholelithiasis (K80.20: Calculus of gallbladder without cholecystitis without obstruction) plan laparoscopic cholecystectomy with possible intraoperative cholangiogram, informed consent obtained. Unasyn 3 gms IV prior to OR SCDs 2. BMI 40.0-44.9, adult (Z68.41: Body mass index [BMI] 40.0-44.9, adult) recommend low fat diet and exercise Follow-up No qualifying data available Problem List/Past Medical History Ongoing BMI 40.0-44.9, adult Cholelithiases Hypertriglyceridemia Morbid obesity Symptomatic cholelithiasis Historical No qualifying data Procedure/Surgical History section, section. Medications No active medications Allergies No Known Allergies No Known Medication Allergies Social History Alcohol - Denies Alcohol Use, 08/28/2023 Substance Abuse - Denies Substance Abuse, 08/28/2023 Tobacco Never (less than 100 in lifetime) Tobacco Use:. Never Smokeless Tobacco Use:., 08/28/2023 Family History Hypertension: Father. Immunizations Vac (more content not included)... 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 Patient: Janine Latham MR#: [id number] : 1990 Acct:[id number] Age/Sex: 32 / F Adm Date: 3 Loc: 3S Room: [address] [place] [address] Type: ADM IN Attending Dr: Chely Mccall [...] output adequate overnight Patient comments: no complaints [place] baby status: doing well feeding status: exclusively [...] % (Auto) 68.8, Lymph % (Auto) 24.0, [place] % (Auto) 3.9, Eos % (Auto) 1.0, Baso % (Auto) 2.3, Nucleat RBC Rel Count 0.1, Neut # (Auto) 4.7, Lymph # (Auto) 1.7, [place] # (Auto) 0.3, Eos # (Auto) 0.1, Baso # (Auto) 0.2 05/09/23 17:05: RPR w/Rflx to Titer Pending 05/09/23 16:00: Urine Color Yellow, Urine Appearance Cloudy A, Urine pH 6.5, Ur Specific [place] 1.022, Urine Protein 100 H, Urine Glucose [...] <Electronically signed by CHELY MCCALL DO> 05/10/23 0726 [facility] Work Phone: Procedure note 05-09-2023 Note Date & Type Note Facility 05-09-2023 Procedure note [facility] Evaluation + Plan note Note Date & Type Note Facility Evaluation + Plan note No data available for this section [facility] Evaluation note Note Date & Type Note Facility Evaluation note No assessment information availa ble [facility] Work Phone: Evaluation note Note Date & Type Note Facility Evaluation note Diagnosis Onset Date Status post acute [facility] Work Phone: Hospital Discharge instructions Note Date & Type Note Facility Hospital Discharge instructions Additional Instructions Call the surgeon to set up an appointment. If there are problems or concerns, we are happy to see you at any time. 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 Summary Purpose Family History No Family History [...] and content) DATE CREATED AUTHOR 08/04/2019 [facility] DATE CREATED AUTHOR AUTHOR'S ORGANIZ ATION 06/22/2023 [facility] EPIC DATE CREATED AUTHOR AUTHOR'S ORGANIZ ATION 07/27/2023 [facility] DATE CREATED AUTHOR AUTHOR'S ORGANIZ ATION 09/01/2023 [facility] Care Teams (unrecognized sec tion and content) Team Status: Inactive Member Role Status Dates Chely Mccall DO Attending Provider Active Team Status: Active Member Role Status Dates Chi Clay MD Primary Care Provider Active Team Status: Inactive Member Role Status Dates Chi Clay MD Primary Care Provider Active Bharati Whiting DO Attending Provider Active Team Status: Inactive Member Role Status Mary Clay MD Primary Care Provider Active Chely Mccall DO Admit Provider, Attending Provid er Active Team Status: Inactive Member Role Status Dates Chely Mccall DO Attending Provider Active Start: April [...] 09, 2023 End: May 11, 2023 Chely Mccall DO Admit Provider, At tending Provider Active Start: May 09, 2023 End: May 11, 2023 Team Status: Inactive Member Role Status Dates oJnatan Marie Jr, MD Emergency Provider Active Start: June 27, 2023 End: June 27, 2023 Chi Clay MD Primary Care Provider Active Start: June 27, 2023 End: June 27, 2023 Goals (unrecognized section and content) Goals may be documented in a n alternate sectionGoals may be documented in an alternate section No data available for this section FOR RECORDS PERTAINING TO PATIENTS WHO [...] BE BASED ON THE PRIMARY CLINICAL RECORDS. [facility] [email or web address] [facility]. provides no warranty or guarantee of the accuracy or completeness of information in this document.
[2023-10-31 07:04] LABS: HCG Qualitative NEGATIVE (NEGATIVE)
[2023-10-31] MEDS: LACTATED RINGER'S SOLUTION 1,000 ML 50 ML IV ×2 (07:07→08:23)
[2023-10-31] MEDS: AMPICILLIN SODIUM/SULBACTAM NA 3 GM in 0.9 % SODIUM CHLORIDE 100 ML IV (07:31)
--- NOTE | 2023-10-31 07:49 | OP_ITS ---
OP Note OPERATION DATE: ??10/31/2023 PREOPERATIVE DIAGNOSIS:? Symptomatic cholelithiasis. POSTOPERATIVE DIAGNOSIS:? Symptomatic cholelithiasis. PROCEDURE:? Laparoscopic cholecystectomy. SURGEON:? Raffi Puente M.D. ANESTHESIA:? General endotracheal. ESTIMATED BLOOD LOSS:? Less than 10 mL. INDICATIONS AND CONSENT:? Patient is a 32-year-old female with several month history of worsening biliary colic type symptoms.? She did have a CT as well as an ultrasound that revealed numerous stones.? No ductal dilatation or wall thickening of the gallbladder.? Indications, risks, benefits, alternatives of proceeding with laparoscopic cholecystectomy were explained extensively to the patient, including risks of bleeding, infection, bile duct injury, bowel injury, need for intraoperative cholangiogram, postoperative ERCP, open procedure, blood clot, pulmonary embolus, heart attack, anesthetic complications or need for further surgery.? All of her questions were answered.? Informed consent was obtained. PROCEDURE:? Patient was brought to the operating room, placed in the supine position.? General anesthesia was induced.? She was prepped and draped in the usual sterile fashion.? A supraumbilical incision was made with the scalpel blade and carried down through subcutaneous tissue using blunt dissection.? The fascia was grasped and incised.? Two 0 Vicryl stay sutures placed in either side of the midline fascia.? The Mg trocar was then inserted and secured using the stay sutures.? The abdomen was then insufflated with carbon dioxide to a pressure of 15 mm/Hg.? The scope was then inserted and the upper abdomen was visualized.? The patient was placed in reverse Trendelenburg position with the right side up.? Three 5 mm ports were then placed; one in the subxiphoid area and two in the right subcostal area, all under direct visualization.? The gallbladder was then grasped with an atraumatic grasper, retracted cephalad on the patient?s right.? The infundibulum was grasped and retracted laterally and inferiorly.? There were omental adhesions to the body of the gallbladder that were first taken down using blunt and sharp dissection, as well as electrocautery.? Once this was done, the infundibulum was grasped and retracted laterally and inferiorly.? Dissection was begun just below the infundibulum, where the cystic duct was carefully dissected out, as well as the cystic artery which was medial.? Small branches were controlled with regular clips.? Once this was all completely mobilized, the critical view of safety was obtained.? The cystic duct was then clipped with two Hem-O-Dhaval clips proximally towards the common duct and one distally towards the gallbladder, then divided.? The artery was clipped with one Hem-O-Dhaval clip proximally and a regular clip proximally and distally and then divided.? The gallbladder was then taken down from the liver bed using electrocautery.? Once it was completely removed, it was brought out in an Endocatch bag through the umbilical port site.? The upper abdomen was then copiously irrigated.? There was noted to be good hemostasis of the liver bed with no evidence of bile leak.? All ports sites were examined upon withdrawal of the ports.? There was noted to be good hemostasis.? The umbilical port site fascia was then closed with a 0 Vicryl figure of eight suture.? All port sites were infiltrated with 0.5% Marcaine.? The skin was then closed with interrupted 4-0 subcuticular Monocryl sutures and skin glue.? A sterile pressure dressing was applied to the supraumbilical incision.? Patient tolerated procedure well, was extubated and sent to recovery room in good condition. CC:? Marc Clay M.D. JJ
[2023-10-31] MEDS: BUPIVACAINE HCL 0.5% PF 50 MG/10 ML VIAL 20 ML INJ (08:33)
[2023-10-31] MEDS: MORPHINE SULFATE 4 MG/ML VIAL IV (08:55)
[2023-10-31] MEDS: OXYCODONE HCL/ACETAMINOPHEN 5MG/325MG 1 TAB PO (09:11)
--- NOTE | 2023-10-31 10:36 | PC.NURSE ---
1020: pt ambulated to bathroom with minimal assistance,pt voids without difficulty.
== END 2023-10-31 10:35 | disposition home or self-care (01) ==
PROVIDERS: PCP Family Medicine; Visit Provider Surgery
PROC: (CPT 790; principal; 2023-10-31 07:30)
DX: K80.10 Calculus of gallbladder with chronic cholecystitis without obstruction (principal); E78.1 Pure hyperglyceridemia; E66.01 Morbid (severe) obesity due to excess calories; Z68.41 Body mass index [BMI] 40.0-44.9, adult
CPT/HCPCS: 47562; 36415; 84703; 88304; J1094; J2704